=== PATIENT | male | born 1975 | race African-American/Black ===

== ENCOUNTER 2018-12-15 17:36 | Emergency (ER) | payer OTHER ==
[2018-12-15 17:57] VITALS: RESP 18
--- NOTE | 2018-12-15 19:48 | ED ---
General Adult HPI - General Chief complaint: Recheck/Abnormal Lab/Rx Stated complaint: feels weird Time Seen by Provider: 12/15/18 19:12 Source: patient Mode of arrival: wheelchair Limitations: no limitations - History of Present Illness Initial comments: Dictation was produced using Nogacom dictation software. please excuse any grammatical, word or spelling errors. Chief Complaint: 43-year-old male presents with chief complaint of chills and body aches today. History of Present Illness: She is a 43-year-old male presents with chills and body aches. He states his symptoms started today. Patient states that last week he had blood work performed by his PCP and was found to have leukocytosis. He was notified about this recently. Patient states he's been having a mild cough. He does report some slight sore throat. Denies any runny nose. Denies any overt sick contacts. Denies any neck pain. Vital nausea vomiting or diarrhea. Denies any abdominal pain but does have some mild chest pain today sharp and pleuritic in nature. The ROS documented in this emergency department record has been reviewed and confirmed by me. Those systems with pertinent positive or negative responses have been documented in the HPI. All other systems are other negative and/or noncontributory. PHYSICAL EXAM: General Impression: Alert and oriented x3, not in acute distress HEENT: Normocephalic atraumatic, extra-ocular movements intact, pupils equal and reactive to light bilaterally, mucous membranes moist. Cardiovascular: Heart regular rate and rhythm, S1&S2 audible, no murmurs, rubs or gallops Chest: Lungs clear to auscultation bilaterally, no rhonchi, no wheeze, no rales Abdomen: Bowel sounds present, abdomen soft, non-tender, non-distended, no organomegaly Musculoskeletal: Pulses present and equal in all extremities, no peripheral edema Motor: no focal deficits noted Neurological: CN II-XII grossly intact, no focal motor or sensory deficits noted Skin: Intact with no visualized rashes Psych: Normal affect and mood ED course: [age]-year-old male presents with constitutional symptoms. Vital signs upon arrival shows junctional 98.8, rest of vital signs within acceptable limits. Temperature was rechecked found to be 101. Laboratory evaluation obtained. Leukocytosis of 24.8 rest of CBC unremarkable. Metabolic panel is unremarkable. Urinalysis negative. Influenza negative. Strep test is positive. Patient given Tylenol. Patient 1 dose of by mouth azithromycin here. He is given a prescription for azithromycin. Clinical presentation consistent with strep pharyngitis. - Related Data Home Medications Medication Instructions Recorded Confirmed Fluticasone Nasal [place] [Flonase 2 spr EA NOSTRIL DAILY PRN 12/15/18 12/15/18 Nasal [place]] Lisinopril 20 mg PO DAILY 12/15/18 12/15/18 Methocarbamol [Robaxin-750] 750 - 1,500 mg PO BID PRN 12/15/18 12/15/18 Omeprazole 40 mg PO DAILY 12/15/18 12/15/18 Previous Rx's Medication Instructions Recorded Azithromycin [Zithromax] 500 mg PO DAILY 4 Days #4 tab 12/15/18 Allergies Allergy/AdvReac Type Severity Reaction Status Date / Time No Known Allergies Allergy Verified 12/15/18 19:26 Review of Systems ROS Statement: Those systems with pertinent positive or pertinent negative responses have been documented in the HPI. ROS Other: All systems not noted in ROS Statement are negative. Past Medical History Past Medical History: Hyperlipidemia, Hypertension Additional Past Medical History / Comment(s): [place] Palsy History of Any Multi-Drug Resistant Organisms: None Reported Past Surgical History: Appendectomy Past Psychological History: No Psychological Hx Reported Smoking Status: Current every day smoker Past Alcohol Use History: None Reported Past Drug Use History: Marijuana General Exam Limitations: no limitations Course Vital Signs 12/15/18 12/15/18 17:53 19:40 Temperature 98.8 F 101.1 F H Pulse Rate 84 Respiratory 18 Rate Blood Pressure 150/95 O2 Sat by Pulse 100 Oximetry Medical Decision Making - Lab Data Result diagrams: 12/15/18 19:43 12/15/18 19:43 Lab Results 12/15/18 12/15/18 12/15/18 Range/Units 19:43 19:43 19:43 WBC 24.8 H (3.8-10.6) k/uL RBC 5.54 (4.30-5.90) m/uL Hgb 14.3 (13.0-17.5) gm/dL Hct 46.6 (39.0-53.0) % MCV 84.0 (80.0-100.0) fL MCH 25.9 (25.0-35.0) pg MCHC 30.8 L (31.0-37.0) g/dL RDW 15.2 (11.5-15.5) % Plt Count 350 (150-450) k/uL Neutrophils % 84 % Lymphocytes % 9 % Monocytes % 4 % Eosinophils % 2 % Basophils % 1 % Neutrophils # 20.9 H (1.3-7.7) k/uL Lymphocytes # 2.2 (1.0-4.8) k/uL Monocytes # 1.0 (0-1.0) k/uL Eosinophils # 0.5 (0-0.7) k/uL Basophils # 0.1 (0-0.2) k/uL Hypochromasia Slight Sodium 142 (137-145) mmol/L Potassium 4.8 (3.5-5.1) mmol/L Chloride 101 (98-107) mmol/L Carbon Dioxide 32 H (22-30) mmol/L Anion Gap 9 mmol/L BUN 12 (9-20) mg/dL Creatinine 0.83 (0.66-1.25) mg/dL Est GFR (CKD-EPI)AfAm >90 (>60 ml/min/1.73 sqM) Est GFR (CKD-EPI)NonAf >90 (>60 ml/min/1.73 sqM) Glucose 105 H (74-99) mg/dL Calcium 10.6 H (8.4-10.2) mg/dL Urine Color Urine Appearance (Clear) Urine pH (5.0-8.0) Ur Specific Adams (1.001-1.035) Urine Protein (Negative) Urine Glucose (UA) (Negative) Urine Ketones (Negative) Urine Blood (Negative) Urine Nitrite (Negative) Urine Bilirubin (Negative) Urine Urobilinogen (<2.0) mg/dL Ur Leukocyte Esterase (Negative) Urine RBC (0-5) /hpf Urine WBC (0-5) /hpf Urine Mucus (None) /hpf Influenza Type A RNA Not Detected (Not Detectd) Influenza Type B (PCR) Not Detected (Not Detectd) Group A Strep Rapid (Negative) 12/15/18 12/15/18 Range/Units 19:43 21:00 WBC (3.8-10.6) k/uL RBC (4.30-5.90) m/uL Hgb (13.0-17.5) gm/dL Hct (39.0-53.0) % MCV (80.0-100.0) fL MCH (25.0-35.0) pg MCHC (31.0-37.0) g/dL RDW (11.5-15.5) % Plt Count (150-450) k/uL Neutrophils % % Lymphocytes % % Monocytes % % Eosinophils % % Basophils % % Neutrophils # (1.3-7.7) k/uL Lymphocytes # (1.0-4.8) k/uL Monocytes # (0-1.0) k/uL Eosinophils # (0-0.7) k/uL Basophils # (0-0.2) k/uL Hypochromasia Sodium (137-145) mmol/L Potassium (3.5-5.1) mmol/L Chloride (98-107) mmol/L Carbon Dioxide (22-30) mmol/L Anion Gap mmol/L BUN (9-20) mg/dL Creatinine (0.66-1.25) mg/dL Est GFR (CKD-EPI)AfAm (>60 ml/min/1.73 sqM) Est GFR (CKD-EPI)NonAf (>60 ml/min/1.73 sqM) Glucose (74-99) mg/dL Calcium (8.4-10.2) mg/dL Urine Color Yellow Urine Appearance Clear (Clear) Urine pH 5.0 (5.0-8.0) Ur Specific Adams 1.017 (1.001-1.035) Urine Protein Negative (Negative) Urine Glucose (UA) Negative (Negative) Urine Ketones Negative (Negative) Urine Blood Trace H (Negative) Urine Nitrite Negative (Negative) Urine Bilirubin Negative (Negative) Urine Urobilinogen <2.0 (<2.0) mg/dL Ur Leukocyte Esterase Negative (Negative) Urine RBC <1 (0-5) /hpf Urine WBC <1 (0-5) /hpf Urine Mucus Rare H (None) /hpf Influenza Type A RNA (Not Detectd) Influenza Type B (PCR) (Not Detectd) Group A Strep Rapid Positive A (Negative) Disposition Clinical Impression: Strep pharyngitis Disposition: HOME SELF-CARE Condition: Good Prescriptions: Azithromycin [Zithromax] 500 mg PO DAILY 4 Days #4 tab Is patient prescribed a controlled substance at d/c from ED?: No Referrals: Vanessa Hoyos DO [Primary Care Provider] - 1-2 days Time of Disposition: 21:42
[2018-12-15 20:03] LABS: Basophils # (A) 0.1 k/uL (0-0.2); Basophils % (A) 1 %; Eosinophils # (A) 0.5 k/uL (0-0.7); Eosinophils % (A) 2 %; HCT 46.6 % (39.0-53.0); HGB 14.3 gm/dL (13.0-17.5); Hypochromasia Slight; Lymphocytes # (A) 2.2 k/uL (1.0-4.8); Lymphocytes % (A) 9 %; MCH 25.9 pg (25.0-35.0); MCHC 30.8 g/dL (31.0-37.0); Mean Platelet Volume 7.2; Monocytes % (A) 4 %; Neutrophils # (A) 20.9 k/uL (1.3-7.7); Neutrophils % (A) 84 %; Platelet Count 350 k/uL (150-450); RBC 5.54 m/uL (4.30-5.90); RDW 15.2 % (11.5-15.5); WBC 24.8 k/uL (3.8-10.6)
[2018-12-15 20:17] LABS: Anion Gap 9 mmol/L; Blood Urea Nitrogen 12 mg/dL (9-20); Calcium 10.6 mg/dL (8.4-10.2); Carbon Dioxide 32 mmol/L (22-30); Chloride 101 mmol/L (98-107); Glucose 105 mg/dL (74-99); Potassium 4.8 mmol/L (3.5-5.1); Sodium 142 mmol/L (137-145)
[2018-12-15 21:13] LABS: Appearance,Urine Clear (Clear); Bilirubin,Urine Negative (Negative); Blood,Urine Trace (Negative); Color,Urine Yellow; Glucose,Urine (UA) Negative (Negative); Ketones,Urine Negative (Negative); Leukocyte Esterase,Urine Negative (Negative); Mucus,Urine Rare /hpf; Nitrite,Urine Negative (Negative); Protein,Urine Negative (Negative); RBC,Urine <1 /hpf (0-5); Specific Gravity,Urine 1.017 (1.001-1.035); Urobilinogen,Urine <2.0 mg/dL (<2.0); WBC,Urine <1 /hpf (0-5)
[2018-12-15] MEDS ORDERED: ACETAMINOPHEN TAB 325 MG TAB PO STA (21:37)
[2018-12-15] MEDS ORDERED: AZITHROMYCIN 500 MG TAB PO STA (21:41)
[2018-12-15 22:12] VITALS: BP 133/80; PULSE 111; TEMP 101.7
[2018-12-15] MEDS ORDERED: PENICILLIN G BENZATHINE 1,200,000 UNIT/2 ML SYRINGE IM ONE (22:15)
== END 2018-12-15 22:21 | disposition home or self-care (01) ==
LOC: EC 17:36
DX: J02.0 Streptococcal pharyngitis (principal); I10 Essential (primary) hypertension; F17.200 Nicotine dependence, unspecified, uncomplicated; Z79.899 Other long term (current) drug therapy
CPT/HCPCS: 36415; 80048; 85025; 81001; 87086; 87430; 87502; 99283; 96372; J0561

== ENCOUNTER → 2019-01-06 | Outpatient (CLI) | payer OTHER ==
[2019-01-06 15:36] LABS: Prothrombin Time 10.8 sec (9.0-12.0)
== END | disposition home or self-care (01) ==
LOC: LABPAT 15:04
PROVIDERS: ATTEND Orthopaedic Surgery
DX: Z01.812 Encounter for preprocedural laboratory examination (principal)
CPT/HCPCS: 36415; 85610; 85730; 87070

== ENCOUNTER 2019-01-10 07:17 | Inpatient (IN) | payer OTHER ==
[~2019-01-10 07:17] MED LIST: ACETAMINOPHEN TAB 500 MG TAB PO ONE; DEXAMETHASONE SOD PHOSPHATE 10 MG/ML 1 ML VIAL IV ONE; HYDROmorphone 0.5 MG/0.5 ML SYRINGE IVP PRN; MELOXICAM 7.5 MG TAB PO ONE; MIDAZOLAM 2 MG/2 ML VIAL IV PRN; ONDANSETRON 4 MG/2 ML VIAL IVP ONE; ROPIVACAINE 246.25 MG, EPINEPHrine 0.5 MG, KETOROLAC 30 MG, cloNIDine HCL/PF 80 MCG, WA... MISCELLANE ONE; SCOPOLAMINE 1.5MG/72HR PATCH TRANSDERM ONE; TRANEXAMIC ACID 1,000 MG in SODIUM CHLORIDE 0.9% 100 ML IVPB ONE; ceFAZolin 3 GM in SODIUM CHLORIDE 0.9% 100 ML IVPB ONE
[2019-01-10] MEDS: LACTATED RINGERS 1,000 ML IV SCH (07:37)
[2019-01-10] MEDS ORDERED: ceFAZolin 3,000 MG in SODIUM CHLORIDE 0.9% IRRIGATIO 3,000 ML IRRIGATION ONE (08:41)
[2019-01-10] MEDS ORDERED: LACTATED RINGERS 1,000 ML IV ONE (09:25)
[2019-01-10] MEDS ORDERED: ONDANSETRON 4 MG/2 ML VIAL IVP PRN (10:07)
[2019-01-10] MEDS ORDERED: DIAZEPAM 5 MG TAB PO PRN (10:07)
[2019-01-10] MEDS ORDERED: MAGNESIUM HYDROXIDE 2,400 MG/10 ML CUP PO PRN (10:07)
[2019-01-10] MEDS ORDERED: BISACODYL 10 MG SUPP RECTAL PRN (10:07)
[2019-01-10] MEDS ORDERED: HYDROmorphone 0.5 MG/0.5 ML SYRINGE IVP PRN ×2 (10:07)
[2019-01-10] MEDS ORDERED: NA PHOS,M-B/NA PHOS,DI-BA 133 ML ENEMA RECTAL PRN (10:07)
[2019-01-10] MEDS ORDERED: HYDROcodone/APAP 5-325MG 1 EACH TAB PO PRN (10:07)
[2019-01-10] MEDS ORDERED: hydrOXYzine PAMOATE 25 MG CAP PO PRN (10:07)
[2019-01-10] MEDS ORDERED: NALOXONE 0.4 MG/ML 1 ML VIAL IV PRN (10:07)
--- NOTE | 2019-01-10 10:24 | P.OP ---
Date of Procedure: 01/10/19 Preoperative Diagnosis: Severe osteoarthritis left knee Postoperative Diagnosis: Severe osteoarthritis left knee Procedure(s) Performed: Left total knee arthroplasty Implants: [employer] Journey II CR Oxinium cruciate retaining femoral component size 8, left [employer] Journey left nonporous tibial baseplate size 7 [employer] Journey II, XLPE Deep Dished articular insert, size 12 mm, Size 7-8 left [employer] Journey BCS resurfacing oval patellar component, 35 mm All components were cemented using Palacos R bone cement.. The articulation is Oxinium on polyethylene. Anesthesia: spinal Surgeon: Walker Ly Cutter V Groove #1: Tereza Choi Estimated Blood Loss (ml): 25 Pathology: other (Bone and cartilage) Condition: stable Disposition: PACU Indications for Procedure: After failure of conservative treatment we discussed the surgical and nonsurgical treatment options at length. Patient wishes to proceed with a total knee arthroplasty. Complications specific to this procedure were discussed at length, including but not limited to infection, bleeding, stiffness, and nerve injury. Patient is aware of all these complications and informed consent was obtained Operative Findings: The operative findings are consistent with severe osteoarthritis of the left knee Description of Procedure: Patient was seen in the preoperative area consent was reviewed and operative site was marked with a skin marker. An adductor canal pain catheter was placed by anesthesia in the preoperative area. Patient was then brought to the operating room and given preoperative antibiotics intravenously. A spinal anesthetic was administered by the anesthesia department. A tourniquet was placed on the upper thigh and the lower extremity was prepped and draped in usual sterile fashion. A gram of transexamic acid was given. A universal timeout was then performed which confirmed the patient's name, surgical site, ALLERGIES, and consent. The lower extremity was then exsanguinated and tourniquet was inflated to 250 mmHg. A standard and anterior midline approach to the knee was performed. The skin and subcutaneous tissue was dissected down to the patellar tendon. A medial parapatellar arthrotomy was then performed. The knee was then extended, the patellar was everted, and the knee was again flexed. Anterior horns of both menisci were excised, and a release was performed to the posterior medial aspect of the knee. On gross visual inspection, there was complete loss of articular cartilage in the medial and patellofemoral joint spaces. There was also significant cartilage damage in the lateral compartment. There were multiple periarticular osteophytes which were then removed with a Ronguer. The femoral canal was then opened with the appropriate drill, and the intramedullary femoral cutting guide was then placed and set for 5 of valgus. The distal femoral cutting block was then pinned in place, and the distal femur was then cut. The cutting block was then removed and the cut was checked for flatness. Next, the sizing guide was then placed and set for 3 external rotation based off of the epicondylar axis and Whitesides line. After the femur was sized, the appropriate 4-in-1 cutting block was then pinned in place. The anterior condyles were cut without notching. The posterior and chamfer cuts were performed while protecting the collateral ligaments. The cutting block was then removed, and the femoral canal was plugged with autologous bone. Attention was then directed to the tibia. The remaining ACL was removed with a Ronguer, and the tibia was then gently subluxed forward with a large bent knee retractor. Any remaining menisci was excised. The posterior lateral corner was cauterized in order to cauterize the lateral geniculate artery. The extra medullary tibial cutting guide was then placed, set for the appropriate rotation, slope, and depth of resection. The proximal tibia cutting guide was then pinned in place. Proximal tibia was then cut and sized. Next trials were then placed with the appropriate-sized insert. The knee was able to fully extend and flex to 130 and was stable throughout all range of motion. The knee was then extended, patella everted. Patella was then measured, and then using an osteotomy guide, the patella was cut at the appropriate level. The patella was then measured and drilled and the patella trial was then placed. The knee was then taken through range of motion with the patella trial and the patella tracked normally. The knee was then extended patella trial was then removed and the patella was everted. Knee was then flexed and lug holes were drilled through the femoral trial and the femoral trial was then removed. The tibial was then exposed, and the tibial broach guide was then pinned in place after it was set for the appropriate rotation to allow for the most coverage without overhang. The tibia was then reamed and broached. The cut surfaces of bone were then irrigated with pulsatile lavage. The posterior structures were injected with the ropivacaine solution. The knee was also irrigated with Irrisept solution. The components were then opened, the cement was mixed, and the components were then cemented in place. The cement was allowed to harden with the knee in full extension. While the cement was hardening, the remaining soft tissues were then injected with a ropivacaine solution, which consisted of 246.25 mg of ropivacaine, 0.5 mg of epinephrine, 30 mg of Toradol, 80 g of clonidine, and 48.45 mL of sterile water, for a total of 100 mL of fluid injected. After the cemented hardened. The tourniquet was released, and hemostasis was obtained. A second gram of transexamic acid was given. The knee was again irrigated. The knee was again taken through range of motion and found to be stable throughout all range of motion of 0-130, and the patella tracked normally. The fascia was then closed with #2 strata fix suture. The subcutaneous tissue was closed with 3-0 Vicryl and 3-0 strata fix. Dermabond glue was used for the skin and placed with the knee in flexion. The patient was placed in a sterile silver dressing. Patient was then transferred to recovery room in stable condition. The executive personal assistant AURELIA Upton was required due the complexity surgery and the need for a skilled surgical assist. She assisted in positioning, draping, retraction, and closure of the wound.
[2019-01-10] MEDS ORDERED: ROPIVACAINE 1,100 MG, SODIUM CHLORIDE 0.9% 500 ML 330 ML MISCELLANE PRN ×4 (10:40→11:03)
--- NOTE | 2019-01-10 11:10 | XR ---
EXAMINATION TYPE: XR knee limited LT DATE OF EXAM: 01/10/2019 CLINICAL HISTORY: Left knee pain and arthritis status post total knee replacement. TECHNIQUE: Portable AP and crosstable lateral views of the left knee are obtained immediately postop eratively. COMPARISON: None FINDINGS: Metallic hardware from total left knee arthroplasty is seen and appears satisfactory in al ignment and position. There is evidence of recent surgery with diffuse subcutaneous gas and soft tis zion swelling noted. IMPRESSION: METALLIC HARDWARE FROM TOTAL LEFT KNEE ARTHROPLASTY IS SATISFACTORY IN ALIGNMENT.
--- NOTE | 2019-01-10 11:12 | P.ANPRN ---
Procedure Note - Anesthesia - Nerve Block Performed Left Adductor Canal Infusion Time Out Performed: Yes (07:53) Date of Procedure: 01/10/19 Procedure Start Time: 07:54 Procedure Stop Time: 08:11 Location of Patient Procedure: PACU Indication: Acute Post-Operative Pain, Requested by physician (Dr Walker Ly) Sedation Type: Sedate with meaningful contact maintained Preparation: Sterile Prep, Sterile Dressing Position: Supine Catheter Depth at Skin (cm): 3 Catheter: Indwelling Needle Types: Pajunk Needle Gauge: 18 (20cc), 21 Technique: Ultrasound Injectate: 0.5% Ropivacaine (see comment for volume) (20cc)
[2019-01-10 14:24] VITALS: BMI 38.2
--- NOTE | 2019-01-10 15:16 | P.CONS ---
History of Present Illness - Reason for Consult Consult date: 01/10/19 Medical management Requesting physician: Walker Ly - Chief Complaint Status post left total knee arthroplasty - History of Present Illness This is a 43-year-old male, patient of [facility]. He has a known past medical history of hypertension and nicotine dependence. Also history of osteoarthritis of the left knee. He underwent a left total knee arthroplasty with Dr. Ly today. No complications reported estimated blood loss 25 mL. Has been consulted for medical management. Patient is complaining of some pain in the left knee. Nurse has been notified and pain medication will be given. Patient denies any fever, chills, sweats, chest pain or shortness breath, nausea or vomiting, bowel movement changes or urinary symptoms. Patient was bradycardic after surgery with a heart rate 49. Heart rate has improved since then is now up to 61. We'll continue to monitor. Bradycardia likely related to the anesthesia and pain medications. Review of Systems Please refer to HPI otherwise unremarkable Past Medical History Past Medical History: Hyperlipidemia, Hypertension Additional Past Medical History / Comment(s): [place] Palsy History of Any Multi-Drug Resistant Organisms: None Reported Past Surgical History: Appendectomy Past Anesthesia/Blood Transfusion Reactions: No Reported Reaction Smoking Status: Current every day smoker - Past Family History Mother Family Medical History: Cancer Medications and Allergies Home Medications Medication Instructions Recorded Confirmed Type Lisinopril 20 mg PO DAILY 12/15/18 01/10/19 History Allergies Allergy/AdvReac Type Severity Reaction Status Date / Time No Known Allergies Allergy Verified 01/10/19 14:46 Physical Exam Vitals: Vital Signs Temp Pulse Pulse Resp BP BP Pulse Ox 01/10/19 13:30 61 18 114/61 100 01/10/19 13:20 49 L 18 108/57 95 01/10/19 13:04 49 L 17 107/67 99 01/10/19 12:48 50 L 17 112/57 5 L 01/10/19 12:33 52 L 17 119/61 100 01/10/19 12:25 53 L 18 121/59 100 01/10/19 12:10 51 L 18 113/59 100 01/10/19 11:55 54 L 18 126/65 100 01/10/19 11:40 55 L 18 117/68 98 01/10/19 11:25 51 L 18 110/76 96 01/10/19 11:09 67 18 121/67 100 01/10/19 10:54 60 18 138/76 100 01/10/19 10:39 96.9 F L 65 18 131/71 97 01/10/19 08:18 18 125/60 100 01/10/19 08:15 96 01/10/19 08:12 65 18 128/71 92 L 01/10/19 07:28 97.0 F L 84 18 133/77 97 Intake and Output 01/10/19 01/10/19 01/10/19 06:59 14:59 22:59 Intake Total 1801 Output Total 675 Balance 1126 Intake: IV 1801 Output: Urine 650 Estimated Blood Loss 25 Head normocephalic Neck supple Lungs clear to auscultation bilaterally no wheezing or crackles Heart regular rate and rhythm S1-S2, no rub or gallop Abdomen is soft nontender nondistended positive bowel sounds no hepatosplenomegaly Extremities no edema. Left knee is Samy wrapped. +2 dorsalis pedis pulse. Has pain pump in place Neuro alert and orientated to 3 Assessment and Plan Assessment: 1. Severe osteoarthritis of the left knee status post Left total knee arthroplasty: Continue aspirin 325 mg twice a day for DVT prophylaxis. Continue pain control per orthopedic protocol 2. Essential hypertension: Blood pressures are stable. Last blood pressure 114/61. We'll place parameters around the lisinopril to hold for systolic blood pressure less than 120 3. Nicotine dependence: Discussed smoking cessation for greater than 3 minutes. We'll add nicotine patch 4. Bradycardia with a heart rate of 49 now improved to 61. Likely related to anesthesia and pain medications. We'll continue to monitor. Check CBC and CMP in a.m. Add GI prophylaxis Pepcid Thank you for this consultation. We will continue to follow along during patient's hospitalization Time with Patient: Greater than 30 (Greater than 50% of the total time spent in counseling and coordination of care.I performed an examination of the patient and discussed their management with the physician Registered Mail Clerk. I have reviewed the Physician Registered Mail Clerk's notes and agree with the documented findings and plan of care)
[2019-01-10] MEDS: HYDROmorphone 1 MG/ML 1 ML SYRINGE IVP PRN ×2 (16:36→19:35)
[2019-01-10] MEDS: ceFAZolin 3 GM in SODIUM CHLORIDE 0.9% 100 ML IVPB SCH ×2 (17:29→23:39)
[2019-01-10] MEDS: SODIUM CHLORIDE 0.9% 1,000 ML IV SCH (19:49)
[2019-01-10] MEDS: SENNOSIDES-DOCUSATE SODIUM 1 EACH TAB PO SCH (20:58)
[2019-01-10] MEDS: ASPIRIN 325 MG TAB PO SCH (20:58)
[2019-01-10] MEDS: HYDROcodone/APAP 5-325MG 1 EACH TAB PO PRN (23:39)
[2019-01-11] MEDS: SODIUM CHLORIDE 0.9% 1,000 ML IV SCH ×2 (01:15→14:12)
[2019-01-11] MEDS: HYDROcodone/APAP 5-325MG 1 EACH TAB PO PRN ×3 (04:43→15:03)
[2019-01-11] MEDS: LACTATED RINGERS 1,000 ML IV SCH (05:12)
--- NOTE | 2019-01-11 06:41 | P.PN ---
Progress Note - Text Progress Note Date: 01/11/19 Postoperative day # 1 status post left total knee arthroplasty, and adductor canal catheter placed for postoperative analgesia, currently at ropivacaine 0.2% 8 mL per hour and continuous infusion, patient using oral pain medication for breakthrough pain. Assessment and plan= Acute postoperative pain, adductor canal catheter for pain control, we'll continue the current management.
[2019-01-11 08:26] LABS: Basophils % (A) 0 %; Eosinophils # (A) 0.1 k/uL (0-0.7); Eosinophils % (A) 0 %; HCT 34.4 % (39.0-53.0); Hypochromasia Slight; Lymphocytes # (A) 3.4 k/uL (1.0-4.8); Lymphocytes % (A) 23 %; MCH 26.2 pg (25.0-35.0); MCHC 31.7 g/dL (31.0-37.0); MCV 82.7 fL (80.0-100.0); Mean Platelet Volume 7.2; Monocytes # (A) 0.9 k/uL (0-1.0); Monocytes % (A) 6 %; Neutrophils # (A) 10.2 k/uL (1.3-7.7); Neutrophils % (A) 69 %; Platelet Count 276 k/uL (150-450); RBC 4.16 m/uL (4.30-5.90); RDW 15.4 % (11.5-15.5); WBC 14.8 k/uL (3.8-10.6)
[2019-01-11 08:35] LABS: HGB 10.9 gm/dL (13.0-17.5)
[2019-01-11] MEDS: MELOXICAM 7.5 MG TAB PO SCH (08:35)
[2019-01-11] MEDS: LISINOPRIL 20 MG TAB PO SCH (08:36)
[2019-01-11] MEDS: ASPIRIN 325 MG TAB PO SCH ×2 (08:36→20:27)
[2019-01-11] MEDS: FAMOTIDINE 20 MG TAB PO SCH (08:36)
[2019-01-11] MEDS: NICOTINE 14MG/24HR PATCH TRANSDERM SCH (08:36)
--- NOTE | 2019-01-11 08:52 | P.DS ---
Providers Date of admission: 01/10/19 07:17 Expected date of discharge: 01/11/19 Attending physician: Walker Ly Consults: 01/10/19 10:07 Consult Physician Routine Consulting Provider: Elvis Nuñez Consult Reason/Comments: medical management Do you want consulting provider notified?: Yes Primary care physician: Vanessa Hoyos - Discharge Diagnosis(es) (1) Osteoarthritis of left knee Current Visit: Yes Status: Acute (2) S/P total knee arthroplasty Current Visit: Yes Status: Acute Hospital Course: This is a 43-year-old male with known history of degenerative arthritis of the left knee. The patient presents for evaluation. After discussion and consideration patient elects to proceed with total knee arthroplasty. The patient is seen preoperatively by Dr. Ly and medically cleared for surgery by their primary care physician. Patient is admitted to [facility] on 01/10/2019 for total knee arthroplasty. The procedures performed without complication or sequelae. The patient is doing well postoperatively. Labs and vital signs are stable on day of discharge. On day of discharge patient's knee incision is healing well. There is minimal erythema. There is no drainage noted at this time. There is minimal soft tissue swelling to the knee. Patient has full foot and ankle motion without difficulty or pain. Calf is soft and nontender to palpation. Neurovascular status to the left lower extremity is intact. Patient is discharged home in good condition. Opioid start talking form is reviewed and signed at patient bedside. Please see med rec for accurate list of home medications. Plan - Discharge Summary Discharge Rx Participant: Yes New Discharge Prescriptions: New Aspirin 325 mg PO BID #60 tab HYDROcodone/APAP 5-325MG [[place] 5-325] 1 - 2 tab PO Q6HR PRN #56 tab PRN Reason: Pain Sennosides [Senokot] 1 tab PO BID #60 tablet No Action Lisinopril 20 mg PO DAILY Discharge Medication List Lisinopril 20 mg PO DAILY 12/15/18 [History] Aspirin 325 mg PO BID #60 tab 01/11/19 [Rx] HYDROcodone/APAP 5-325MG [[place] 5-325] 1 - 2 tab PO Q6HR PRN #56 tab 01/11/19 [Rx] Sennosides [Senokot] 1 tab PO BID #60 tablet 01/11/19 [Rx] Follow up Appointment(s)/Referral(s): Walker Ly DO [Doctor of Osteopathic Medicine] - 2 Weeks Ambulatory/Diagnostic Orders: Continuous Passive Motion (CPM) Machine [DME.AMB1] Time Frame: 3 Weeks, Location: None Selected Activity/Diet/Wound Care/Special Instructions: Weightbearing as tolerated with a walker. CPM 5-6h daily. Leave dressing intact. May be removed by home care nurse or by patient in 10 days. May shower with dressing on. Please follow up with [facility] and call with any questions or concerns, . Discharge Disposition: HOME WITH HOME HEALTH SERVICES
[2019-01-11 12:21] LABS: ALT 37 U/L (21-72); AST 30 U/L (17-59); African American GFR (CKD) >90 (>60 ml/min/1.73 sqM); Albumin 3.6 g/dL (3.5-5.0); Alkaline Phosphatase 62 U/L (38-126); Anion Gap 6 mmol/L; Blood Urea Nitrogen 9 mg/dL (9-20); Calcium 8.8 mg/dL (8.4-10.2); Carbon Dioxide 31 mmol/L (22-30); Chloride 105 mmol/L (98-107); Glucose 109 mg/dL (74-99); Potassium 4.3 mmol/L (3.5-5.1); Sodium 142 mmol/L (137-145); Total Bilirubin 0.6 mg/dL (0.2-1.3); Total Protein 6.2 g/dL (6.3-8.2)
--- NOTE | 2019-01-11 15:25 | P.PN ---
Subjective Progress Note Date: 01/11/19 This is a 43-year-old male, patient of [facility]. He has a known past medical history of hypertension and nicotine dependence. Also history of osteoarthritis of the left knee. He underwent a left total knee arthroplasty with Dr. Ly today. No complications reported estimated blood loss 25 mL. Has been consulted for medical management. Patient is complaining of some pain in the left knee. Nurse has been notified and pain medication will be given. Patient denies any fever, chills, sweats, chest pain or shortness breath, nausea or vomiting, bowel movement changes or urinary symptoms. Patient was bradycardic after surgery with a heart rate 49. Heart rate has improved since then is now up to 61. We'll continue to monitor. Bradycardia likely related to the anesthesia and pain medications. On 01/11/2019 patient is alert and oriented 3. Patient having increased pain to left knee. Patient's heart rate has improved. Patient requiring additional 24 hours due to limited mobility with physical therapy. Patient also having elevated white blood cell count 14.8. Patient denies any acute symptoms. Patient denies nausea vomiting or diarrhea. Patient denies any urinary burning or frequency. Urinary analysis has been ordered Objective - Vital Signs Vital signs: Vital Signs Temp 98.9 F 01/11/19 14:00 Pulse 85 01/11/19 14:00 Resp 16 01/11/19 03:21 BP 128/75 01/11/19 14:00 Pulse Ox 97 01/11/19 14:00 Intake & Output 01/10/19 01/11/19 01/11/19 18:59 06:59 18:59 Intake Total 1801 Output Total 675 600 Balance 1126 -600 Intake: IV 1801 Output: Urine 650 600 Estimated Blood Loss 25 Other: Voiding Method Urinal Urinal Urinal # Voids 1 3 - Exam Head normocephalic Neck supple Lungs clear to auscultation bilaterally no wheezing or crackles Heart regular rate and rhythm S1-S2, no rub or gallop Abdomen is soft nontender nondistended positive bowel sounds no hepatosplenomegaly Extremities no edema. Left knee dressing is clean dry and intact Neuro alert and orientated to 3 - Labs CBC & Chem 7: 01/11/19 07:39 01/11/19 07:39 Labs: Abnormal Lab Results - Last 24 Hours (Table) 01/11/19 01/11/19 Range/Units 07:39 07:39 WBC 14.8 H (3.8-10.6) k/uL RBC 4.16 L (4.30-5.90) m/uL Hgb 10.9 L D (13.0-17.5) gm/dL Hct 34.4 L (39.0-53.0) % Neutrophils # 10.2 H (1.3-7.7) k/uL Carbon Dioxide 31 H (22-30) mmol/L Glucose 109 H (74-99) mg/dL Total Protein 6.2 L (6.3-8.2) g/dL Assessment and Plan Assessment: 1. Severe osteoarthritis of the left knee status post Left total knee arthroplasty: Continue aspirin 325 mg twice a day for DVT prophylaxis. Continue pain control per orthopedic protocol 2. Essential hypertension: Blood pressures are stable. Last blood pressure 114/61. We'll place parameters around the lisinopril to hold for systolic blood pressure less than 120 3. Nicotine dependence: Discussed smoking cessation for greater than 3 minutes. We'll add nicotine patch 4. Bradycardia with a heart rate of 49 now improved to 61. Likely related to anesthesia and pain medications. We'll continue to monitor. Resolved 5. Leukocytosis. White blood cell elevated at 14.8. Urinary analysis has been ordered repeat CBC in a.m. thank you for this consultation we will continue to follow patient closely t hroughout stay I performed an examination of the patient and discussed their management with the Nurse Practitioner. I have reviewed the Nurse Practitioner's notes and agree with the documented findings and plan of care
[2019-01-11 15:26] LABS: Appearance,Urine Clear (Clear); Bilirubin,Urine Negative (Negative); Blood,Urine Negative (Negative); Color,Urine Light Yellow; Glucose,Urine (UA) Negative (Negative); Ketones,Urine Negative (Negative); Leukocyte Esterase,Urine Negative (Negative); Nitrite,Urine Negative (Negative); PH, Urine 6.5 (5.0-8.0); Protein,Urine Negative (Negative); Specific Gravity,Urine 1.011 (1.001-1.035); Urobilinogen,Urine <2.0 mg/dL (<2.0)
[2019-01-11] MEDS: HYDROmorphone 1 MG/ML 1 ML SYRINGE IVP PRN (20:23)
[2019-01-11] MEDS: SENNOSIDES-DOCUSATE SODIUM 1 EACH TAB PO SCH (20:27)
[2019-01-12] MEDS: LACTATED RINGERS 1,000 ML IV SCH (02:05)
[2019-01-12] MEDS: HYDROmorphone 1 MG/ML 1 ML SYRINGE IVP PRN ×2 (02:09→08:13)
[2019-01-12] MEDS: SODIUM CHLORIDE 0.9% 1,000 ML IV SCH (02:13)
[2019-01-12 08:09] VITALS: RESP 16
[2019-01-12] MEDS: LISINOPRIL 20 MG TAB PO SCH (08:13)
[2019-01-12] MEDS: FAMOTIDINE 20 MG TAB PO SCH (08:13)
[2019-01-12] MEDS: ASPIRIN 325 MG TAB PO SCH (08:13)
[2019-01-12] MEDS: MELOXICAM 7.5 MG TAB PO SCH (08:15)
[2019-01-12] MEDS: NICOTINE 14MG/24HR PATCH TRANSDERM SCH (08:18)
[2019-01-12 09:00] LABS: ALT 44 U/L (21-72); AST 35 U/L (17-59); African American GFR (CKD) >90 (>60 ml/min/1.73 sqM); Albumin 3.9 g/dL (3.5-5.0); Alkaline Phosphatase 71 U/L (38-126); Anion Gap 8 mmol/L; Blood Urea Nitrogen 8 mg/dL (9-20); Calcium 9.1 mg/dL (8.4-10.2); Carbon Dioxide 29 mmol/L (22-30); Chloride 102 mmol/L (98-107); Glucose 153 mg/dL (74-99); Potassium 4.1 mmol/L (3.5-5.1); Sodium 139 mmol/L (137-145); Total Bilirubin 0.9 mg/dL (0.2-1.3); Total Protein 6.8 g/dL (6.3-8.2)
[2019-01-12] MEDS ORDERED: HYDROcodone/APAP 7.5-325MG 1 EACH TAB PO PRN ×2 (09:09)
[2019-01-12 10:47] LABS: Basophils # (A) 0.1 k/uL (0-0.2); Basophils % (A) 0 %; Eosinophils # (A) 0.1 k/uL (0-0.7); Eosinophils % (A) 1 %; HCT 35.8 % (39.0-53.0); HGB 11.2 gm/dL (13.0-17.5); Lymphocytes # (A) 2.8 k/uL (1.0-4.8); Lymphocytes % (A) 20 %; MCHC 31.2 g/dL (31.0-37.0); MCV 83.5 fL (80.0-100.0); Mean Platelet Volume 7.3; Monocytes # (A) 1.1 k/uL (0-1.0); Monocytes % (A) 8 %; Neutrophils # (A) 9.6 k/uL (1.3-7.7); Neutrophils % (A) 70 %; Platelet Count 301 k/uL (150-450); RBC 4.29 m/uL (4.30-5.90); RDW 15.4 % (11.5-15.5); WBC 13.8 k/uL (3.8-10.6)
--- NOTE | 2019-01-12 13:08 | P.PN ---
Subjective Progress Note Date: 01/12/19 This is a 43-year-old male, patient of [facility]. He has a known past medical history of hypertension and nicotine dependence. Also history of osteoarthritis of the left knee. He underwent a left total knee arthroplasty with Dr. Ly today. No complications reported estimated blood loss 25 mL. Has been consulted for medical management. Patient is complaining of some pain in the left knee. Nurse has been notified and pain medication will be given. Patient denies any fever, chills, sweats, chest pain or shortness breath, nausea or vomiting, bowel movement changes or urinary symptoms. Patient was bradycardic after surgery with a heart rate 49. Heart rate has improved since then is now up to 61. We'll continue to monitor. Bradycardia likely related to the anesthesia and pain medications. On 01/11/2019 patient is alert and oriented 3. Patient having increased pain to left knee. Patient's heart rate has improved. Patient requiring additional 24 hours due to limited mobility with physical therapy. Patient also having elevated white blood cell count 14.8. Patient denies any acute symptoms. Patient denies nausea vomiting or diarrhea. Patient denies any urinary burning or frequency. Urinary analysis has been ordered 01/12/19 patient is lying in bed comfortably. Still complaining of knee pain however it is controlled with pain medication. He is scheduled for discharge today. White count has decreased from 14.8-13.8. He did have a temp of 99.3 last night and this morning 98.8 patient denies any chest pain or shortness breath, nausea or vomiting, Ramesh changes or urinary symptoms. Denies any chills or sweats. Left knee dressing is clean dry and intact. Urinalysis is negative Objective - Vital Signs Vital signs: Vital Signs Temp 98.8 F 01/12/19 07:42 Pulse 98 01/12/19 08:15 Resp 16 01/12/19 08:15 BP 130/91 01/12/19 07:42 Pulse Ox 97 01/12/19 07:42 Intake & Output 01/11/19 01/12/19 01/12/19 18:59 06:59 18:59 Output Total 600 1500 600 Balance -600 -1500 -600 Output: Urine 600 1500 600 Other: Voiding Method Urinal Urinal # Voids 3 - Exam Head normocephalic Neck supple Lungs clear to auscultation bilaterally no wheezing or crackles Heart regular rate and rhythm S1-S2, no rub or gallop Abdomen is soft nontender nondistended positive bowel sounds no hepato splenomegaly Extremities no edema. Left knee dressing clean dry and intact no evidence of erythema around the dressing. Neuro alert and orientated to 3 - Labs CBC & Chem 7: 01/12/19 08:25 01/12/19 08:25 Labs: Abnormal Lab Results - Last 24 Hours (Table) 01/12/19 01/12/19 Range/Units 08:25 08:25 WBC 13.8 H (3.8-10.6) k/uL RBC 4.29 L (4.30-5.90) m/uL Hgb 11.2 L (13.0-17.5) gm/dL Hct 35.8 L (39.0-53.0) % Neutrophils # 9.6 H (1.3-7.7) k/uL Monocytes # 1.1 H (0-1.0) k/uL BUN 8 L (9-20) mg/dL Glucose 153 H (74-99) mg/dL Assessment and Plan Assessment: 1. Severe osteoarthritis of the left knee status post Left total knee arthroplasty: Continue aspirin 325 mg twice a day for DVT prophylaxis. Continue pain control per orthopedic protocol 2. Essential hypertension: Blood pressures are stable. Last blood pressure 114/61. We'll place parameters around the lisinopril to hold for systolic blood pressure less than 120 3. Nicotine dependence: Discussed smoking cessation for greater than 3 minutes. We'll add nicotine patch 4. Bradycardia with a heart rate of 49 now improved to 61. Likely related to anesthesia and pain medications. Resolved 5. Leukocytosis likely reactive from surgery. Urinalysis is negative. Repeat WBC is down to 13.8 Patient is medically stable for discharge. We'll have him follow up with his PCP in 1 week. Repeat check CBC in 1 week. Patient has been educated to monitor himself for any fevers. To keep an eye on his knee for any significant swelling or redness or drainage. If the symptoms do occur he is to return back to the ER. I performed an examination of the patient and discussed their management with the physician Bone Drier. I have reviewed the Physician Bone Drier's notes and agree with the documented findings and plan of care
[2019-01-12 13:58] VITALS: BP 124/62; PULSE 73; TEMP 98
== END 2019-01-12 16:37 | disposition home health service (06) | DRG 470 ==
LOC: 2ORMAIN 07:17 → 4SSUR 14:46
PROVIDERS: ADMIT Orthopaedic Surgery; ATTEND Orthopaedic Surgery
PROC: 0SRD069 Replacement of Left Knee Joint with Oxidized Zirconium on Polyethylene Synthetic Substitute, Cemented, Open Approach (ICD-10-PCS; principal; 2019-01-10 08:30)
DX: M17.12 Unilateral primary osteoarthritis, left knee (principal); I10 Essential (primary) hypertension; G89.18 Other acute postprocedural pain; D72.829 Elevated white blood cell count, unspecified; R00.1 Bradycardia, unspecified; E78.5 Hyperlipidemia, unspecified; G51.0 Bell's palsy; F17.200 Nicotine dependence, unspecified, uncomplicated; Z71.6 Tobacco abuse counseling; Z79.899 Other long term (current) drug therapy; Z90.49 Acquired absence of other specified parts of digestive tract; Z80.9 Family history of malignant neoplasm, unspecified
CPT/HCPCS: 80053; 81003; 85025; 88300

== ENCOUNTER 2019-01-25 15:37 | Emergency (ER) | payer OTHER ==
[2019-01-25 15:49] VITALS: TEMP 98.2
[2019-01-25 16:48] VITALS: RESP 18
[2019-01-25] MEDS ORDERED: valACYclovir HCL 1,000 MG TABLET PO STA (17:14)
[2019-01-25] MEDS ORDERED: DEXAMETHASONE SOD PHOSPHATE 10 MG/ML 1 ML VIAL IM STA (17:14)
--- NOTE | 2019-01-25 17:14 | ED ---
Neuro HPI - General Chief Complaint: Neuro Symptoms/Deficit Stated Complaint: rt facial numbness Time Seen by Provider: 01/25/19 16:34 Source: patient, RN notes reviewed, old records reviewed Mode of arrival: wheelchair Limitations: no limitations - History of Present Illness Is the patient presenting with stroke symptoms?: Yes Last Known Well Date: 01/24/19 Last Known Well Time: 20:00 -: days(s) Initial Comments: This is a 43-year-old male the ER for evaluation history prediabetes coming in for evaluation of facial weakness and droop. She really. Inability to move right eyebrow. Patient has history of alcohol states this feels the same. No fevers no head trauma no headache. No deficits in arms or legs. Location: right face History of same: Yes Place: home Severity: moderate Quality: weak, tingling Improves With: none Worsens With: none On Anticoagulants: No Context: sudden onset Associated Symptoms: denies other symptoms Treatments Prior to Arrival: none - Related Data Home Medications: Home Medications Medication Instructions Recorded Confirmed Lisinopril 20 mg PO DAILY 12/15/18 01/25/19 Previous Rx's Medication Instructions Recorded Aspirin 325 mg PO BID #60 tab 01/11/19 Sennosides [Senokot] 1 tab PO BID #60 tablet 01/11/19 HYDROcodone/APAP 7.5-325MG [[place] 1 - 2 tab PO Q6H PRN #56 tab 01/12/19 7.5-325] Allergies/Adverse Reactions: Allergies Allergy/AdvReac Type Severity Reaction Status Date / Time No Known Allergies Allergy Verified 01/25/19 16:16 Review of Systems ROS Statement: Those systems with pertinent positive or pertinent negative responses have been documented in the HPI. ROS Other: All systems not noted in ROS Statement are negative. General Exam - General Exam Comments Initial Comments: Patient signs and symptoms of Bee's palsy, unable to raise right eyebrow unable to successfully close right eye, right-sided facial droop, history of Bee's palsy Limitations: no limitations General appearance: alert, in no apparent distress Head exam: Present: atraumatic, normocephalic, normal inspection Eye exam: Present: normal appearance, PERRL, EOMI. Absent: scleral icterus, conjunctival injection, periorbital swelling ENT exam: Present: normal exam, mucous membranes moist Neck exam: Present: normal inspection. Absent: tenderness, meningismus, lymphadenopathy Respiratory exam: Present: normal lung sounds bilaterally. Absent: respiratory distress, wheezes, rales, rhonchi, stridor Cardiovascular Exam: Present: regular rate, normal rhythm, normal heart sounds. Absent: systolic murmur, diastolic murmur, rubs, gallop, clicks GI/Abdominal exam: Present: soft, normal bowel sounds. Absent: distended, tenderness, guarding, rebound, rigid Extremities exam: Present: normal inspection, full ROM, normal capillary refill. Absent: tenderness, pedal edema, joint swelling, calf tenderness Back exam: Present: normal inspection Neurological exam: Present: alert, oriented X3, CN II-XII intact Psychiatric exam: Present: normal affect, normal mood Skin exam: Present: warm, dry, intact, normal color. Absent: rash Stroke MDM - NIH Stroke Scale 1a. Level of Consciousness: (0) alert 1b. LOC Questions: (0) answers correctly 1c. LOC Commands: (0) performs tasks correctly 2. Best Gaze: (0) normal 3. Visual: (0) no visual loss 4. Facial Palsy: (2) partial paralysis 5a. Motor Arm Left: (0) no drift 5b. Motor Arm Right: (0) no drift 6a. Motor Leg Left: (0) no drift 6b. Motor Leg Right: (0) no drift 7. Limb Ataxia: (0) absent 8. Sensory: (0) normal 9. Best Language: (0) no aphasia 10. Dysarthria: (1) mild/moderate dysarthria 11. Extinction/Inattention: (0) no abnormality - Thrombolytic Inclusion/Exclusion Thrombolytic Exclusion Criteria: Symptom Onset > 3 Hours - Medical Decision Making 43 male to ED w si/sx of bells palsy, patient will be treated appropraitely and discharged. Past Medical History Past Medical History: Hyperlipidemia, Hypertension Additional Past Medical History / Comment(s): [place] Palsy History of Any Multi-Drug Resistant Organisms: None Reported Past Surgical History: Appendectomy Past Anesthesia/Blood Transfusion Reactions: No Reported Reaction Past Psychological History: No Psychological Hx Reported Smoking Status: Current every day smoker - Past Family History Mother Family Medical History: Cancer Course Vital Signs 01/25/19 01/25/19 15:47 16:47 Temperature 98.2 F Pulse Rate 75 82 Respiratory 16 18 Rate Blood Pressure 130/88 145/82 O2 Sat by Pulse 99 100 Oximetry - Reevaluation(s) Reevaluation #1: 01/25/19 17:11 medical record reviewed Reevaluation #2: 01/25/19 17:11 patient encouragfed to increase fluid intake secondary to pre diabetes and steroids Disposition Clinical Impression: Bee's palsy Disposition: HOME SELF-CARE Condition: Good Instructions (If sedation given, give patient instructions): Bee Palsy (ED) Is patient prescribed a controlled substance at d/c from ED?: No Referrals: Marivel Lopez MD [Primary Care Provider] - 1-2 days
[2019-01-25 17:41] VITALS: BP 131/78; PULSE 78
== END 2019-01-25 17:40 | disposition home or self-care (01) ==
LOC: EC 15:37
DX: G51.0 Bell's palsy (principal); R73.03 Prediabetes; I10 Essential (primary) hypertension; F17.200 Nicotine dependence, unspecified, uncomplicated; Z90.49 Acquired absence of other specified parts of digestive tract; Z79.899 Other long term (current) drug therapy
CPT/HCPCS: 99284 ×2; 96372 ×2; 93971; J1100

== ENCOUNTER → 2019-07-21 | Outpatient (CLI) | payer OTHER ==
--- NOTE | 2019-07-22 14:36 | MR ---
EXAMINATION TYPE: MR lumbar spine wo con DATE OF EXAM: 07/22/2019 COMPARISON: None HISTORY: Low Back Pain TECHNIQUE: Multiplanar, multisequence images of the lumbar spine were acquired. L1-L2: Normal disc appearance without desiccation. No herniation, protrusion or disc bulging. No ca nal stenosis is present. Foramina are patent bilaterally. L2-L3: Normal disc appearance without desiccation. No herniation, protrusion or disc bulging. No ca nal stenosis is present. Foramina are patent bilaterally. L3-L4: Normal disc appearance without desiccation. No herniation, protrusion or disc bulging. No ca nal stenosis is present. Foramina are patent bilaterally. L4-L5: Normal disc appearance without desiccation. No herniation, protrusion or disc bulging. No ca nal stenosis is present. Foramina are patent bilaterally. L5-S1: Posterior disc herniation present L5-S1 contacting the proximal S1 nerve root on the left grea ter than right, no significant spinal stenosis, circumferential extension of endplate disc complex ca uses some foraminal encroachment bilaterally. Lumbar segments are intact. No paraspinal masses are identified. Conus medullaris has a normal appe arance. Loss of disc height signal present L5-S1 consistent with disc desiccation and degenerative di sc disease. IMPRESSION: Disc herniation L5-S1 as described, correlate for S1 radiculopathy.
== END | disposition home or self-care (01) ==
LOC: RADMRIMAIN 16:28
PROVIDERS: ATTEND Family Medicine
DX: M51.27 Other intervertebral disc displacement, lumbosacral region (principal); M54.16 Radiculopathy, lumbar region
CPT/HCPCS: 72148

== ENCOUNTER 2020-04-13 00:10 | Inpatient (IN) | payer OTHER ==
[2020-04-13] MEDS ORDERED: CLINDAMYCIN 600 MG in DEXTROSE 5% IN WATER 50 ML IVPB STA ×2 (00:40)
[2020-04-13] MEDS ORDERED: SODIUM CHLORIDE 0.9% 500 ML 500 ML IV ONE (00:41)
[2020-04-13 01:05] LABS: Basophils # (A) 0.2 k/uL (0-0.2); Basophils % (A) 1 %; Eosinophils # (A) 0.3 k/uL (0-0.7); Eosinophils % (A) 2 %; HCT 42.7 % (39.0-53.0); HGB 13.4 gm/dL (13.0-17.5); Lymphocytes # (A) 3.6 k/uL (1.0-4.8); Lymphocytes % (A) 24 %; MCH 25.6 pg (25.0-35.0); MCHC 31.5 g/dL (31.0-37.0); MCV 81.5 fL (80.0-100.0); Mean Platelet Volume 7.7; Monocytes # (A) 0.9 k/uL (0-1.0); Monocytes % (A) 6 %; Neutrophils # (A) 9.9 k/uL (1.3-7.7); Neutrophils % (A) 66 %; Platelet Count 368 k/uL (150-450); RBC 5.24 m/uL (4.30-5.90); RDW 15.3 % (11.5-15.5); WBC 15.1 k/uL (3.8-10.6)
[2020-04-13] MEDS: SODIUM CHLORIDE 0.9% 1,000 ML IV SCH ×4 (01:09→23:07)
[2020-04-13] MEDS ORDERED: SODIUM CHLORIDE 0.9% 1,000 ML IV ONE ×2 (01:14→02:14)
[2020-04-13 01:17] LABS: ALT 63 U/L (4-49); AST 67 U/L (17-59); African American GFR (CKD) >90 (>60 ml/min/1.73 sqM); Alkaline Phosphatase 81 U/L (38-126); Anion Gap 11 mmol/L; Blood Urea Nitrogen 17 mg/dL (9-20); Calcium 9.7 mg/dL (8.4-10.2); Carbon Dioxide 29 mmol/L (22-30); Chloride 90 mmol/L (98-107); Glucose 134 mg/dL (74-99); Non-African American GFR(CKD) 81 (>60 ml/min/1.73 sqM); Sodium 130 mmol/L (137-145); Total Bilirubin 0.7 mg/dL (0.2-1.3); Total Protein 8.1 g/dL (6.3-8.2)
[2020-04-13] MEDS ORDERED: NALOXONE 0.4 MG/ML 1 ML VIAL IV PRN (01:21)
--- NOTE | 2020-04-13 01:24 | ED ---
Extremity Problem HPI - General Chief complaint: Extremity Problem,Nontraumatic Stated complaint: back pain Time Seen by Provider: 04/13/20 00:28 Source: patient, family Mode of arrival: ambulatory Limitations: no limitations - History of Present Illness Initial comments: 44-year-old male presented for right leg swelling and pain. Patient states that he has had increasing right leg redness swelling and pain he states he was diagnosed with cellulitis has been treated with multiple antibiotics over the course of the month he states he recently discontinued Bactrim. Patient states he's been evaluated twice in the [facility] and had his heart evaluated with no findings suggestive of heart failure per patient as well as evaluation for DVT> Patient denies fevers, general malaise. Denies vomiting, diarrhea. Pt also endorses low back pain in which he states is chronic and has been evaluated outpatient. Patient has no additional complaints. Upon arrival he appears well nontoxic in no acute distress. - Related Data Home Medications Medication Instructions Recorded Confirmed lisinopriL 20 mg PO DAILY 12/15/18 01/25/19 Previous Rx's Medication Instructions Recorded Aspirin 325 mg PO BID #60 tab 01/11/19 Sennosides [Senokot] 1 tab PO BID #60 tablet 01/11/19 HYDROcodone/APAP 7.5-325MG [[place] 1 - 2 tab PO Q6H PRN #56 tab 01/12/19 7.5-325] predniSONE [Deltasone] 20 mg PO DAILY #27 tab 01/25/19 valACYclovir HCL [Valtrex] 500 mg PO Q8HR #21 tab 01/25/19 Allergies Allergy/AdvReac Type Severity Reaction Status Date / Time No Known Allergies Allergy Verified 04/13/20 00:20 Review of Systems ROS Statement: Those systems with pertinent positive or pertinent negative responses have been documented in the HPI. ROS Other: All systems not noted in ROS Statement are negative. Past Medical History Past Medical History: Hyperlipidemia, Hypertension Additional Past Medical History / Comment(s): [place] Palsy, back pain History of Any Multi-Drug Resistant Organisms: None Reported Past Surgical History: Appendectomy Past Anesthesia/Blood Transfusion Reactions: No Reported Reaction Past Psychological History: No Psychological Hx Reported Smoking Status: Current every day smoker Past Alcohol Use History: Occasional Past Drug Use History: Marijuana - Past Family History Mother Family Medical History: Cancer General Exam - General Exam Comments Initial Comments: General: The patient is awake and alert, in no distress Eye: Pupils are equal, round and reactive to light, extra-ocular movements are intact. No nystagmus. There is normal conjunctiva bilaterally. No signs of icterus. Ears, nose, mouth and throat: There are moist mucous membranes and no oral lesions. Neck: The neck is supple, there is no tenderness or JVD. Cardiovascular: There is a regular rate and rhythm. No murmur, rub or gallop is appreciated. Respiratory: Lungs are clear to auscultation, respirations are non-labored, breath sounds are equal. No wheezes, stridor, rales, or rhonchi. Gastrointestinal: Soft, non-distended, non-tender abdomen without masses or organomegaly noted. There is no rebound or guarding present. Musculoskeletal: Normal ROM, no tenderness. Strength 5/5. Sensation intact. Pulses equal bilaterally 2+. Neurological: A&O x 3. CN II-XII intact grossly, There are no obvious motor or sensory deficits. Coordination appears grossly intact. Speech is normal. Skin: Skin is warm and dry and no rashes. Circumferential right lower extremity erythema of the right lower leg is warm to touch smalled breaks in skin where is appears dry skin was pealed off, no involvement of foot. swelling noted. tender to touch Psychiatric: Cooperative, appropriate mood & affect, normal judgment. Limitations: no limitations Course Vital Signs 04/13/20 00:15 Temperature 98.4 F Pulse Rate 91 Respiratory 20 Rate Blood Pressure 157/92 O2 Sat by Pulse 99 Oximetry Medical Decision Making - Medical Decision Making 44yo male presenting for cc of right lower leg pain, redness, swelling. Treated for cellulitis on and off past month. Patietn does not appear consistetn with history provided, have some suspicion for noncompliance. Patient will be admitted for failued outpatient treatment of right lower leg cellulitis as he has increased pain/redness/swelling and elevated white count. Patient agreeable to care plan and admission. - Lab Data Result diagrams: 04/13/20 00:48 04/13/20 00:48 Lab Results 04/13/20 04/13/20 04/13/20 Range/Units 00:48 00:48 00:48 WBC 15.1 H (3.8-10.6) k/uL RBC 5.24 (4.30-5.90) m/uL Hgb 13.4 (13.0-17.5) gm/dL Hct 42.7 (39.0-53.0) % MCV 81.5 (80.0-100.0) fL MCH 25.6 (25.0-35.0) pg MCHC 31.5 (31.0-37.0) g/dL RDW 15.3 (11.5-15.5) % Plt Count 368 (150-450) k/uL Neutrophils % 66 % Lymphocytes % 24 % Monocytes % 6 % Eosinophils % 2 % Basophils % 1 % Neutrophils # 9.9 H (1.3-7.7) k/uL Lymphocytes # 3.6 (1.0-4.8) k/uL Monocytes # 0.9 (0-1.0) k/uL Eosinophils # 0.3 (0-0.7) k/uL Basophils # 0.2 (0-0.2) k/uL Sodium 130 L (137-145) mmol/L Potassium 4.0 (3.5-5.1) mmol/L Chloride 90 L (98-107) mmol/L Carbon Dioxide 29 (22-30) mmol/L Anion Gap 11 mmol/L BUN 17 (9-20) mg/dL Creatinine 1.10 (0.66-1.25) mg/dL Est GFR (CKD-EPI)AfAm >90 (>60 ml/min/1.73 sqM) Est GFR (CKD-EPI)NonAf 81 (>60 ml/min/1.73 sqM) Glucose 134 H (74-99) mg/dL Plasma Lactic Acid Herve 1.1 (0.7-2.0) mmol/L Calcium 9.7 (8.4-10.2) mg/dL Total Bilirubin 0.7 (0.2-1.3) mg/dL AST 67 H (17-59) U/L ALT 63 H (4-49) U/L Alkaline Phosphatase 81 (38-126) U/L Total Protein 8.1 (6.3-8.2) g/dL Albumin 5.0 (3.5-5.0) g/dL Disposition Clinical Impression: Cellulitis, Failure of outpatient treatment, Right leg swelling, Leukocytosis Disposition: ADMITTED IP TO THIS HOSP Condition: Stable Is patient prescribed a controlled substance at d/c from ED?: No Referrals: Baldo Mckeon MD [Primary Care Provider] - 1-2 days Time of Disposition: : Decision to Admit Reason: Admit from EC Decision Date: 04/13/20 Decision Time:
[2020-04-13] MEDS ORDERED: traMADol 50 MG TAB PO PRN (14:03)
[2020-04-13] MEDS ORDERED: methocarbamoL 750 MG TAB PO PRN (14:03)
--- NOTE | 2020-04-13 14:10 | HP ---
HISTORY AND PHYSICAL CHIEF COMPLAINT: Pain and swelling in the right lower leg. HISTORY OF PRESENT ILLNESS: This is another admission for this 44-year-old . He has had problems with cellulitis in the legs in the past and his right leg started to become more red, painful and swollen. He came to the emergency room where it was felt that he should be admitted for IV antibiotics. He has no other complaints. REVIEW OF SYSTEMS: He has had no headaches, chest pain, shortness of breath, abdominal pain, nausea, vomiting, diarrhea, melena, renal failure, diabetes, etc. He does have hypertension. Past medical history, family history and personal and social histories reveal that he is on baclofen 10 mg q.i.d., chlorthalidone 25 mg once a day, lisinopril 40 once a day, Norvasc 10 once a day, Pepcid 20 mg once a day, Carafate q.i.d. and Wellbutrin SR 150 twice a day. He does have a history of hypertension. He also has obstructive sleep apnea. He does continue to smoke. He does use marijuana. Drinks only occasionally. PHYSICAL EXAMINATION: Blood pressure is 138/90 with a pulse of 69, respirations of 35, and he is afebrile. General he appeared to be overweight and in no acute distress. Skin color is normal. Skin is warm and dry. Lymph nodes are not enlarged. Head, ears, eyes, nose, mouth, and throat are normal. Neck veins not distended. Thyroid not enlarged. Chest is clear but breath sounds are diminished due to his size. Cardiac exam is normal sinus rhythm. Abdomen is protuberant, soft, nontender. Extremities demonstrated cellulitis with edema of the right lower leg. There is no drainage today or exudate. Neurologically he is intact. IMPRESSION: 1. Cellulitis of the right lower leg. 2. History of hypertension. 3. Sleep apnea. 4. History of depression. PLAN: 1. Bed rest. 2. IV fluids. 3. IV antibiotics. MMODL / IJN: [id number] /
[2020-04-13] MEDS: lisinopriL 20 MG TAB PO SCH (14:53)
[2020-04-13] MEDS: amLODIPine 10 MG TAB PO SCH (14:53)
[2020-04-13] MEDS: HYDROcodone/APAP 5-325MG 1 EACH TAB PO PRN ×2 (14:54→20:51)
[2020-04-13] MEDS: FAMOTIDINE 20 MG TAB PO SCH (14:54)
[2020-04-13] MEDS: CHLORTHALIDONE 25 MG TAB PO SCH (15:10)
[2020-04-13] MEDS: buPROPion SR 150 MG TABLET.ER PO SCH ×2 (15:10→20:51)
[2020-04-13] MEDS: SUCRALFATE 1 GM TAB PO SCH ×3 (15:10→20:51)
[2020-04-13] MEDS: ASPIRIN 325 MG TAB PO SCH (20:50)
[2020-04-14] MEDS: buPROPion SR 150 MG TABLET.ER PO SCH ×2 (08:00→20:42)
[2020-04-14] MEDS: CHLORTHALIDONE 25 MG TAB PO SCH (08:01)
[2020-04-14] MEDS: FAMOTIDINE 20 MG TAB PO SCH (08:01)
[2020-04-14] MEDS: ASPIRIN 325 MG TAB PO SCH ×2 (08:01→20:42)
[2020-04-14] MEDS: SUCRALFATE 1 GM TAB PO SCH ×4 (08:01→21:14)
[2020-04-14] MEDS: SODIUM CHLORIDE 0.9% 1,000 ML IV SCH ×2 (08:01→14:30)
[2020-04-14] MEDS: amLODIPine 10 MG TAB PO SCH (11:46)
[2020-04-14] MEDS: HYDROcodone/APAP 5-325MG 1 EACH TAB PO PRN ×2 (11:46→20:42)
[2020-04-14] MEDS: lisinopriL 20 MG TAB PO SCH (11:46)
[2020-04-14 16:17] LABS: ALT 52 U/L (4-49); AST 58 U/L (17-59); African American GFR (CKD) >90 (>60 ml/min/1.73 sqM); Albumin 4.4 g/dL (3.5-5.0); Alkaline Phosphatase 76 U/L (38-126); Anion Gap 10 mmol/L; Blood Urea Nitrogen 9 mg/dL (9-20); Calcium 9.1 mg/dL (8.4-10.2); Carbon Dioxide 27 mmol/L (22-30); Chloride 97 mmol/L (98-107); Glucose 200 mg/dL (74-99); Non-African American GFR(CKD) >90 (>60 ml/min/1.73 sqM); Potassium 4.1 mmol/L (3.5-5.1); Sodium 134 mmol/L (137-145); Total Bilirubin 0.4 mg/dL (0.2-1.3); Total Protein 7.3 g/dL (6.3-8.2)
[2020-04-14 16:19] LABS: Basophils # (A) 0.1 k/uL (0-0.2); Basophils % (A) 1 %; Eosinophils # (A) 0.3 k/uL (0-0.7); Eosinophils % (A) 3 %; HCT 43.6 % (39.0-53.0); HGB 13.2 gm/dL (13.0-17.5); Hypochromasia Slight; Lymphocytes # (A) 3.3 k/uL (1.0-4.8); Lymphocytes % (A) 31 %; MCH 25.5 pg (25.0-35.0); MCHC 30.3 g/dL (31.0-37.0); MCV 84.3 fL (80.0-100.0); Mean Platelet Volume 7.9; Monocytes # (A) 0.8 k/uL (0-1.0); Monocytes % (A) 7 %; Neutrophils # (A) 5.7 k/uL (1.3-7.7); Neutrophils % (A) 55 %; Platelet Count 326 k/uL (150-450); RBC 5.17 m/uL (4.30-5.90); RDW 15.4 % (11.5-15.5); WBC 10.4 k/uL (3.8-10.6)
[2020-04-14] MEDS: BACLOFEN 10 MG TAB PO SCH ×2 (17:23→21:14)
--- NOTE | 2020-04-14 21:26 | P.CONS ---
History of Present Illness - Reason for Consult Consult date: 04/14/20 Right leg cellulitis Requesting physician: Baldo Mckeon - Chief Complaint Right leg swelling and redness x week - History of Present Illness Patient is a 44-year-old -Central African male presenting to the ER at [facility] yesterday morning for evaluation of right leg swelling and pain currently the patient seemed to have problem with bilateral lower extremity swelling started a few weeks ago patient mentioned his left leg swelling improved however he couldn't have problem with the right lower extremity swelling with associated pain and redness patient described the pain in the leg to be more of a dull aching to throbbing intensity about 7 out of 10 and no radiation patient denies having any skin breakdown or any drainage currently has been evaluated at [facility] ER without any specific diagnosis patient has been treated with oral Bactrim DS however did not have a significant improvement has she presented to [facility] ER patient was evaluated by the physician on arrival to the the patient was afebrile he did have a white count of 15,000 patient was started on Rocephin and subsequently has been switched over to cefazolin 2 g every 8 hours infectious disease was consulted for further management of antibiotic therapy Review of Systems Positive point has been mentioned in the HPI rest of the systems are negative Past Medical History Past Medical History: Hyperlipidemia, Hypertension Additional Past Medical History / Comment(s): [place] Palsy, back pain History of Any Multi-Drug Resistant Organisms: None Reported Past Surgical History: Appendectomy Past Anesthesia/Blood Transfusion Reactions: No Reported Reaction Past Psychological History: No Psychological Hx Reported Smoking Status: Current every day smoker Past Alcohol Use History: Occasional Additional Past Alcohol Use History / Comment(s): smokes 1 PPD, started smoking age 14 Past Drug Use History: Marijuana - Past Family History Mother Family Medical History: Cancer Medications and Allergies Home Medications Medication Instructions Recorded Confirmed Type Aspirin 325 mg PO BID #60 tab 01/11/19 04/13/20 Rx Amoxicillin/Potassium Clav 1 tab PO BID 04/13/20 04/13/20 History [Augmentin 875-125 Tablet] Chlorthalidone 25 mg PO DAILY 04/13/20 04/13/20 History Famotidine 20 mg PO DAILY 04/13/20 04/13/20 History HYDROcodone/APAP 5-325MG [[place] 1 tab PO Q6HR PRN 04/13/20 04/13/20 History 5-325] Methocarbamol [Robaxin-750] 750 mg PO QID PRN 04/13/20 04/13/20 History Sucralfate [Carafate] 1 gm PO QID 04/13/20 04/13/20 History amLODIPine [Norvasc] 10 mg PO DAILY 04/13/20 04/13/20 History buPROPion HCL [Wellbutrin SR] 150 mg PO Q12H 04/13/20 04/13/20 History lisinopriL 40 mg PO DAILY 04/13/20 04/13/20 History methylPREDNISolone Dose Pack See Taper PO DAILY 04/13/20 04/13/20 History [Medrol Dose Pack] traMADol HCL [Ultram] 50 mg PO Q6HR PRN 04/13/20 04/13/20 History Allergies Allergy/AdvReac Type Severity Reaction Status Date / Time No Known Allergies Allergy Verified 04/13/20 09:06 Physical Exam Vitals: Vital Signs Temp Pulse Resp BP BP Pulse Ox 04/14/20 14:24 98.1 F 73 16 113/60 100 04/14/20 11:44 76 142/84 04/14/20 09:35 64 122/73 04/14/20 07:55 98.6 F 88 16 98/54 98 04/14/20 02:01 98.1 F 88 18 133/66 98 04/13/20 19:29 98.2 F 81 18 139/84 98 Intake and Output 04/14/20 04/14/20 04/14/20 06:59 14:59 22:59 Intake Total 1610 Balance 1610 Intake: Intake, IV Titration 1610 Amount Sodium Chloride 0.9% 1, 1560 000 ml @ 130 mls/hr IV . [id number] MARIANNA Rx#:[id number] ceFAZolin 2 gm In Sodium 50 Chloride 0.9% 50 ml @ 100 mls/hr IVPB Q8HR MARIANNA Rx# :[id number] Other: Voiding Method Toilet Toilet # Voids 3 1 GENERAL DESCRIPTION: Middle-aged male lying in bed, no distress. No tachypnea or accessory muscle of respiration use. HEENT: Shows Pallor , no scleral icterus. Oral mucous membrane is dry. No pharyngeal erythema or thrush NECK: Trachea central, no thyromegaly. LUNGS: Unlabored breathing. Clear to auscultation anteriorly. No wheeze or crackle. HEART: S1, S2, regular rate and rhythm. No loud murmur ABDOMEN: Soft, no tenderness , guarding or rigidity, no organomegaly EXTREMITIES: Right lower extremity with swelling minimal warmth wound or any drainage SKIN: No rash, no masses palpable. NEUROLOGICAL: The patient is awake, alert, oriented x3, mood and affect normal. Results CBC & Chem 7: 04/14/20 15:44 04/14/20 15:44 Labs: Microbiology - Last 24 Hours (Table) 04/13/20 00:48 Blood Culture - Preliminary Blood No Growth after 24 hours Assessment and Plan Assessment: 1-patient presented to hospital the right lower extremity pain swelling and some redness this patient apparently recently has been treated with the Bactrim DS without any improvement however did mention overall improvement with the cefazolin and likely pointing towards staphylococcal cellulitis however no fever has been noticed that he did have elevated white count normalized with the antibiotics (1) Cellulitis of right leg Narrative/Plan: 1-we will obtain her right lower extremity Doppler to rule out DVT 2-cefazolin 2 g every 8 hours We will follow on clinical condition and cultures to further adjust medication if needed Thank you for this consultation will follow this patient with you Current Visit: Yes Status: Acute Code(s): L03.115 - CELLULITIS OF RIGHT LOWER LIMB SNOMED Code(s): 680212177 (2) Failure of outpatient treatment Current Visit: Yes Status: Acute Code(s): Z78.9 - OTHER SPECIFIED HEALTH STATUS SNOMED Code(s): 654311812 Time with Patient: Greater than 30
[2020-04-15] MEDS: SODIUM CHLORIDE 0.9% 1,000 ML IV SCH ×4 (00:05→22:35)
[2020-04-15] MEDS: SUCRALFATE 1 GM TAB PO SCH ×4 (08:20→21:15)
[2020-04-15] MEDS: CHLORTHALIDONE 25 MG TAB PO SCH (08:20)
[2020-04-15] MEDS: ASPIRIN 325 MG TAB PO SCH ×2 (08:20→21:15)
[2020-04-15] MEDS: lisinopriL 20 MG TAB PO SCH (08:21)
[2020-04-15] MEDS: FAMOTIDINE 20 MG TAB PO SCH (08:21)
[2020-04-15] MEDS: amLODIPine 10 MG TAB PO SCH (08:21)
[2020-04-15] MEDS: BACLOFEN 10 MG TAB PO SCH ×3 (08:21→21:15)
[2020-04-15] MEDS: buPROPion SR 150 MG TABLET.ER PO SCH ×2 (08:21→21:15)
--- NOTE | 2020-04-15 11:14 | PN ---
PROGRESS NOTE DATE: 04/14/20 CHIEF COMPLAINT: Cellulitis, right leg. HISTORY OF PRESENT ILLNESS: This gentleman is doing fairly well with the right leg is still swollen, so that cellulitic and intense. He has no other complaints. PHYSICAL EXAMINATION: Chest is clear. Cardiac exam is normal. Abdomen is protuberant soft extremities demonstrate the right leg still be indurated and erythematous from the knee down. IMPRESSION: Cellulitis of the right leg. PLAN: 1. Continue with elevation and IV antibiotics. 2. Consult Infectious Disease. MMODL / IJN: [id number] /
--- NOTE | 2020-04-15 12:12 | US ---
EXAMINATION TYPE: US venous doppler duplex LE RT DATE OF EXAM: 04/15/2020 7:10 AM COMPARISON: Left lower chest on the venous ultrasound 09/27/2018 CLINICAL HISTORY: Swelling rule out DVT. SIDE PERFORMED: Right TECHNIQUE: The lower extremity deep venous system is examined utilizing real time linear array sonog jeremy with graded compression, doppler sonography and color-flow sonography. VESSELS IMAGED: External Iliac Vein (EIV) Common Femoral Vein Deep Femoral Vein Greater Saphenous Vein * Femoral Vein Popliteal Vein Small Saphenous Vein * Proximal Calf Veins (* superficial vessels) Right Leg: Negative for DVT Incidental note is made of prominent nodes with retained fatty hilum right groin. Grayscale, color doppler, spectral doppler imaging performed of the deep veins of the right lower ext remity. There is normal flow, compressibility, vascular waveforms. IMPRESSION: No ultrasound evidence for acute DVT in the right lower extremity.
--- NOTE | 2020-04-15 13:38 | PN ---
PROGRESS NOTE DATE OF SERVICE: 04/15/2020 REASON FOR FOLLOWUP: Right lower extremity cellulitis. INTERVAL HISTORY: The patient is currently afebrile. The patient is feeling better. Breathing comfortably. Denies having any chest pain. No shortness of breath or cough. No nausea or vomiting or abdominal pain. Overall, right leg swelling and redness has slightly decreased. PHYSICAL EXAMINATION: On examination, blood pressure 129/77, pulse of 86, temperature 98.9. He is 97% on room air. General description is a middle-aged male lying in bed in no distress. Respiratory system: Unlabored breathing, clear to auscultation anteriorly. Heart S1, S2. Regular rate and rhythm. Right leg swelling and redness has slightly decreased. LABS: White count normal. Blood culture negative. Lower extremity Doppler negative for DVT. Did show some groin. DIAGNOSTIC IMPRESSION AND PLAN: Patient with right lower extremity cellulitis with diffuse cellulitis likely streptococcal disease, clinically improved on cefazolin. We will continue to finish therapy with oral Keflex. Continue supportive care. MMODL / IJN: [id number] /
[2020-04-15] MEDS: HYDROcodone/APAP 5-325MG 1 EACH TAB PO PRN (21:15)
[2020-04-16 03:13] VITALS: PULSE 74
[2020-04-16] MEDS: SODIUM CHLORIDE 0.9% 1,000 ML IV SCH (06:36)
[2020-04-16 07:41] VITALS: BP 172/89; TEMP 98
[2020-04-16] MEDS: FAMOTIDINE 20 MG TAB PO SCH (07:42)
[2020-04-16] MEDS: buPROPion SR 150 MG TABLET.ER PO SCH (07:42)
[2020-04-16] MEDS: lisinopriL 20 MG TAB PO SCH (07:42)
[2020-04-16] MEDS: amLODIPine 10 MG TAB PO SCH (07:42)
[2020-04-16] MEDS: CHLORTHALIDONE 25 MG TAB PO SCH (07:42)
[2020-04-16] MEDS: BACLOFEN 10 MG TAB PO SCH (07:42)
[2020-04-16] MEDS: SUCRALFATE 1 GM TAB PO SCH (07:42)
[2020-04-16] MEDS: ASPIRIN 325 MG TAB PO SCH (07:43)
[2020-04-16 07:50] VITALS: RESP 16
[2020-04-16] MEDS ORDERED: CEPHALEXIN 500 MG CAP PO SCH (13:00)
--- NOTE | 2020-04-16 18:16 | PN ---
PROGRESS NOTE DATE OF SERVICE: 04/15/2020 CHIEF COMPLAINT: Cellulitis of the right lower leg. HISTORY OF PRESENT ILLNESS: This gentleman's leg is improving slowly. PHYSICAL EXAMINATION: Chest is clear. The cardiac exam is normal. Abdomen is soft and protuberant. Extremities are about the same. There is still erythema and redness as well as edema in the right lower leg. Calf is not tender. Homans is negative. IMPRESSION: 1. Cellulitis of the right lower extremity. 2. Obstructive sleep apnea. PLAN: Continue with IV fluids, antibiotics and elevation. MMODL / IJN: [id number] /
--- NOTE | 2020-04-16 18:52 | HP ---
HISTORY AND PHYSICAL CHIEF COMPLAINT: Pain and swelling in the right lower leg. HISTORY OF PRESENT ILLNESS: This is another admission for this 44-year-old -Indian male who has a history of dependent edema, hypertension and sleep apnea. He came to the emergency room with increased pain, redness and swelling in the right lower extremity. He had been being treated as an outpatient but had failed treatment. REVIEW OF SYSTEMS: He denies any syncope, headaches, chest pain, heart disease, abdominal pain, nausea, vomiting, diarrhea, melena, urinary complaints, etc. He has had no shaking chills or fever. Past medical history, family history, and personal and social histories are otherwise unremarkable or noncontributory. PHYSICAL EXAMINATION: Blood pressure is 138/90 with respirations of 36 and pulse of 89. He is afebrile. In general he appears to be obese and he is uncomfortable. Head, ears, eyes, nose, mouth and throat are normal. Chest is clear to auscultation and percussion. Cardiac exam demonstrates normal sinus rhythm. The abdomen is protuberant, soft and nontender without visceromegaly or masses. Extremities demonstrate edema in both lower legs, but there is cellulitis on the right from the knee down to the ankle. There is induration, tenderness, redness and swelling. Neurologically he is intact. IMPRESSION: 1. Cellulitis of the right lower extremity. 2. Obesity. 3. Sleep apnea. PLAN: 1. Bed rest. 2. IV fluids. 3. Elevation of the leg. 4. IV antibiotics. MMSONDRAL / IJN: [id number] /
--- NOTE | 2020-04-17 00:49 | DS ---
DISCHARGE SUMMARY CHIEF COMPLAINT: Cellulitis to the right lower extremity. HISTORY OF PRESENT ILLNESS AND PHYSICAL EXAM: Details of this man's history and physical can be found in the initial workup. LABORATORY STUDIES: While he was in a hospital he had laboratory studies, details of which can be found in the laboratory section of his chart. COURSE IN THE HOSPITAL: After admission, he was placed on bedrest, started on intravenous fluids and he was placed on heparin and elevation of the leg. He was also placed on antibiotics. He was seen by Infectious Disease. The cellulitis slowly began to subside. He was doing well enough it was felt that he could go home on the . FINAL DIAGNOSES: 1. Cellulitis of the right lower extremity. 2. Obstructive sleep apnea. 3. Hypertension. OPERATIONS: None. CONSULTATIONS: Infectious Disease. He is improved. MMODL / IJN: [id number] /
== END 2020-04-16 12:03 | disposition home or self-care (01) | DRG 603 ==
LOC: EC 00:10 → 1SOBS 02:12 → OBSVTOIN 04-15 08:21
PROVIDERS: ADMIT Family Medicine; ATTEND Family Medicine
DX: L03.115 Cellulitis of right lower limb (principal); Z68.41 Body mass index [BMI] 40.0-44.9, adult; E66.9 Obesity, unspecified; G47.33 Obstructive sleep apnea (adult) (pediatric); M54.5 Low back pain; E78.5 Hyperlipidemia, unspecified; I10 Essential (primary) hypertension; F32.9 Major depressive disorder, single episode, unspecified; Z91.19 Patient's noncompliance with other medical treatment and regimen; F17.210 Nicotine dependence, cigarettes, uncomplicated; Z79.82 Long term (current) use of aspirin; Z79.899 Other long term (current) drug therapy; Z90.49 Acquired absence of other specified parts of digestive tract; Z86.69 Personal history of other diseases of the nervous system and sense organs; Z98.890 Other specified postprocedural states; Z80.9 Family history of malignant neoplasm, unspecified
CPT/HCPCS: 36415; 80053; 83605; 85025; 87040; 94660; 96365; 96367; 99284

== ENCOUNTER 2020-05-14 17:38 | Emergency (ER) | payer OTHER ==
[2020-05-14 17:59] VITALS: RESP 18; TEMP 97.8
--- NOTE | 2020-05-14 20:47 | US ---
EXAMINATION TYPE: US venous doppler duplex LE RT DATE OF EXAM: 05/14/2020 8:38 PM COMPARISON: US CLINICAL HISTORY: swelling. Swelling x couple weeks. No hx of DVT. Patient does not take blood thinne rs. SIDE PERFORMED: Right TECHNIQUE: The lower extremity deep venous system is examined utilizing real time linear array sonog jeremy with graded compression, doppler sonography and color-flow sonography. VESSELS IMAGED: External Iliac Vein (EIV) Common Femoral Vein Deep Femoral Vein Greater Saphenous Vein * Femoral Vein Popliteal Vein Small Saphenous Vein * Proximal Calf Veins (* superficial vessels) Right Leg: No evidence of DVT in veins imaged at this time from prox calf veins to EIV. Hypoechoic a reas with hyperechoic centers seen in right groin. Largest measures: 3.0 x 2.6 x 1.6 cm. IMPRESSION: No sign of deep vein thrombosis in the right leg.
--- NOTE | 2020-05-14 20:54 | ED ---
Lower Extremity Injury HPI - General Chief Complaint: Extremity Injury, Lower Stated Complaint: R Leg Swelling Time Seen by Provider: 05/14/20 19:19 Source: patient, RN notes reviewed, old records reviewed Mode of arrival: ambulatory Limitations: no limitations - History of Present Illness Initial Comments: Patient is a 45-year-old -[place] male presents emergency department today with right lower external may swelling. He reports his preceding diagnosed with cellulitis. He states this is similar to his last cellulitis flareup. He reports that he has been off antibiotics for approximately a month. Patient states that he's had no fevers or chills. Denies any fall or trauma to the leg. - Related Data Home Medications Medication Instructions Recorded Confirmed Chlorthalidone 25 mg PO DAILY 04/13/20 04/13/20 Famotidine 20 mg PO DAILY 04/13/20 04/13/20 HYDROcodone/APAP 5-325MG [[place] 1 tab PO Q6HR PRN 04/13/20 04/13/20 5-325] Methocarbamol [Robaxin-750] 750 mg PO QID PRN 04/13/20 04/13/20 Sucralfate [Carafate] 1 gm PO QID 04/13/20 04/13/20 amLODIPine [Norvasc] 10 mg PO DAILY 04/13/20 04/13/20 buPROPion HCL [Wellbutrin SR] 150 mg PO Q12H 04/13/20 04/13/20 lisinopriL 40 mg PO DAILY 04/13/20 04/13/20 traMADol HCL [Ultram] 50 mg PO Q6HR PRN 04/13/20 04/13/20 Previous Rx's Medication Instructions Recorded Aspirin 325 mg PO BID #60 tab 01/11/19 Cephalexin [Keflex] 500 mg PO QID #60 cap 04/16/20 Cephalexin [Keflex] 500 mg PO Q6HR 7 Days #28 cap 05/14/20 Allergies Allergy/AdvReac Type Severity Reaction Status Date / Time No Known Allergies Allergy Verified 05/14/20 17:56 Review of Systems ROS Statement: Those systems with pertinent positive or pertinent negative responses have been documented in the HPI. ROS Other: All systems not noted in ROS Statement are negative. Past Medical History Past Medical History: Hyperlipidemia, Hypertension Additional Past Medical History / Comment(s): [place] Palsy, back pain History of Any Multi-Drug Resistant Organisms: None Reported Past Surgical History: Appendectomy Past Anesthesia/Blood Transfusion Reactions: No Reported Reaction Past Psychological History: No Psychological Hx Reported Smoking Status: Current every day smoker Past Alcohol Use History: Occasional Past Drug Use History: Marijuana - Past Family History Mother Family Medical History: Cancer General Exam - General Exam Comments Initial Comments: 45-year-old male. No distress. Limitations: no limitations General appearance: alert, in no apparent distress Head exam: Present: atraumatic, normocephalic, normal inspection Eye exam: Present: normal appearance, PERRL, EOMI. Absent: scleral icterus, conjunctival injection, periorbital swelling ENT exam: Present: normal exam Neck exam: Present: normal inspection. Absent: tenderness, meningismus, lymphadenopathy Respiratory exam: Present: normal lung sounds bilaterally. Absent: respiratory distress, wheezes, rales, rhonchi, stridor Cardiovascular Exam: Present: regular rate, normal rhythm, normal heart sounds. Absent: systolic murmur, diastolic murmur, rubs, gallop, clicks GI/Abdominal exam: Present: soft, normal bowel sounds. Absent: distended, tenderness, guarding, rebound, rigid Extremities exam: Present: normal inspection, full ROM, normal capillary refill, other (Patient has right lower extremity swelling. Dorsalis pedis is pulses 2+. Does have some calf tenderness is mild erythema noted. Full range of motion of ankle and toes.). Absent: tenderness, pedal edema, joint swelling, calf tenderness Back exam: Present: normal inspection Neurological exam: Present: alert, oriented X3, CN II-XII intact Psychiatric exam: Present: normal affect, normal mood Skin exam: Present: warm, dry, intact, normal color. Absent: rash Course Vital Signs 05/14/20 05/14/20 17:57 21:11 Temperature 97.8 F 97.8 F Pulse Rate 87 78 Respiratory 18 18 Rate Blood Pressure 118/73 114/70 O2 Sat by Pulse 98 99 Oximetry Medical Decision Making - Medical Decision Making 45 year old male concern for right lower extremity swelling for the past week. Reports similar to previous cellulitis. On review of his last visit he was treated with Keflex. Patient at this time has no fevers or chills. Ultrasound was completely negative for DVT. Discussed putting the Patient on antibiotics at this time and close follow up with primary care doctor. He will has an appointment on Wednesday. Discusses appropriate time for follow-up and if there is any worsening signs or symptoms he can return to the ER for failure of outpatient treatment. Patient is agreeable treatment plan will comply. - Radiology Data Radiology results: report reviewed Right lower extremity ultrasound was negative for DVT. Disposition Clinical Impression: Cellulitis, Right leg swelling Disposition: HOME SELF-CARE Condition: Good Instructions (If sedation given, give patient instructions): Cellulitis (ED) Additional Instructions: Take the medications as prescribed. Return to the ED if any alarming signs or symptoms occur. Follow-up with primary care doctor in the next 2 days. Prescriptions: Cephalexin [Keflex] 500 mg PO Q6HR 7 Days #28 cap Is patient prescribed a controlled substance at d/c from ED?: No Referrals: Baldo Mckeon MD [Primary Care Provider] - 1-2 days Time of Disposition: 20:55
[2020-05-14] MEDS ORDERED: CEPHALEXIN 500MG STARTER PACK 4 CAP BTL PO STA (20:57)
[2020-05-14 21:12] VITALS: BP 114/70; PULSE 78
== END 2020-05-14 21:11 | disposition home or self-care (01) ==
LOC: EC 17:38
DX: L03.115 Cellulitis of right lower limb (principal); M79.89 Other specified soft tissue disorders; I10 Essential (primary) hypertension; F17.200 Nicotine dependence, unspecified, uncomplicated; Z79.899 Other long term (current) drug therapy
CPT/HCPCS: 99284

== ENCOUNTER → 2020-12-10 | Outpatient (CLI) | payer OTHER ==
--- NOTE | 2020-12-10 18:55 | CONS ---
CONSULTATION HISTORY OF PRESENT ILLNESS: 45-year-old male patient who has had history of obstructive sleep apnea. He is coming in for re-evaluation. He is currently not using his CPAP unit. He tells me does not have any holes or supplies. His sleep study was done from another hospital, which I am assuming it is [facility] many years back. He is currently working at [employer]. He does the evening shifts between 8 a.m. and 3:00 am. He works 5 days a week and he takes 2 days off. He is sleeping between 7:00 am in the morning and 11:00 am and on days off, he sleeps regular hours. He feels very much tired and sleepy during the day and he is having difficulty functionality during working hours. For that reason, he was referred to me. His current weight is around 303 pounds. He does snore. He does quit breathing and he has excessive daytime sleepiness. Occasional wakes up from sleep gasping for air. He wakes up also with a dry mouth. He has occasional heartburn. He is falling asleep on and off during the day activities. As such, he is quite symptomatic. His current [place] score is 15. No stroke. No head trauma. No anxiety. No depression. No sleep paralysis. No hallucinations. No cataplexy. PAST MEDICAL HISTORY: Obstructive sleep apnea and hypertension. PAST SURGICAL HISTORY: None. DRUG ALLERGIES: Not known. MEDICATIONS: Outpatient medications: He takes a blood pressure pill, exactly the type of medication is not known. SOCIAL HISTORY: Smokes weed, approximately 6 joints on a daily basis. No history of alcoholism. No history of drugs. FAMILY HISTORY: Negative for sleep apnea. Hypertension runs in the family. REVIEW OF SYSTEMS: 14-point review of system was done. Most positive finding is his excessive tiredness and sleepiness during the day. He does have also arthritic pain in his knees. He takes occasional [place]. No anxiety. No depression. No grinding of the teeth. No palpitations. No angina. No shortness of breath. No sleepwalking or sleep talking. No nocturia. PHYSICAL EXAMINATION: VITAL SIGNS: BP is 130/79, pulse is 79, respirations 16, temperature 96.9, saturation 95% on room air. Height is 6 feet, 0, weight is 303 and Plano score is 15. BMI is 41.3. Neck size is 19 inches. GENERAL APPEARANCE: Calm and comfortable. Head is atraumatic, normocephalic. NECK: Supple. Mallampati class 4. There is no goiter or neck mass. LUNGS: Diminished, otherwise clear. HEART: Heart sounds are regular rate and rhythm. Normal S1, S2. No S3, S4. No murmurs. ABDOMEN: Soft, nontender. No organomegaly. EXTREMITIES: No edema. No cyanosis or clubbing. IMPRESSION: 1. Obstructive sleep apnea. Currently not receiving any treatment. The patient has a CPAP unit at home which probably is functional, yet the patient does not have the supplies and he has not used his machine for a few years. Documentation on his original sleep study and the circumstances of diagnosis and treatment is not available to me at this point. I am assuming this was done at [facility]. 2. Insufficient sleep syndrome. 3. reconciliation specialist worker. 4. Excessive hypersomnia, [place] score of 15. 5. Obesity with a BMI of 41.3. 6. Marijuana use, approximately 6 joints on a daily basis. 7. Hypertension. PLAN: 1. I offered this patient a new tubing/hose and an AirFit N30I nose mask. I asked him to go back on his original CPAP unit that was given to him several years back. 2. I asked the patient to bring in the machine for me to check and document his underlying pressures. 3. I asked the patient to undergo a split night study to reestablish diagnosis and make appropriate adjustments on his pressure settings and based on that, I will either offer the patient a new CPAP unit or make the appropriate adjustments on his older unit. 4. Encourage weight loss. 5. He needs to definitely extend his sleep hours to an average of 7 hours of sleep per night or per day. He has to sleep between 7:00 am and/or even 6:00 am till 1:00 pm and he was made aware of that. He obviously has a component of insufficient sleep syndrome. 6. Cut down on the marijuana use. 7. Weight loss. 8. Implement good sleep hygiene measures. 9. We will continue to follow and make further recommendations based on his progress. MMODL / IJN: [id number] /
== END ==
LOC: SLEEP 15:36
PROVIDERS: ATTEND Internal Medicine Critical Care Medicine
DX: G47.33 Obstructive sleep apnea (adult) (pediatric) (principal); E66.9 Obesity, unspecified; F51.12 Insufficient sleep syndrome; F12.90 Cannabis use, unspecified, uncomplicated; I10 Essential (primary) hypertension; Z68.41 Body mass index [BMI] 40.0-44.9, adult
CPT/HCPCS: 99211

== ENCOUNTER 2021-02-28 21:06 | Observation (INO) | payer OTHER ==
[2021-02-28] MEDS ORDERED: ONDANSETRON 4 MG/2 ML VIAL IVP STA (21:13)
[2021-02-28] MEDS ORDERED: SODIUM CHLORIDE 0.9% 1,000 ML IV STA ×2 (21:13)
--- NOTE | 2021-02-28 21:35 | ED ---
Nausea/Vomiting/Diarrhea HPI - General Chief complaint: Nausea/Vomiting/Diarrhea Stated complaint: vomiting Time Seen by Provider: 02/28/21 21:12 Source: patient, EMS, RN notes reviewed, old records reviewed Mode of arrival: EMS Limitations: no limitations - History of Present Illness Initial comments: This is a 45-year-old male to the ER for evaluation. Today patient is a for evaluation regards to nausea vomiting chest pain abdominal pain. Patient has history of high blood pressure possible diabetes. Patient has no recent travel history sick contacts. Patient arrived work sinus rhythm not feeling well for the last few days and then had significant vomiting at work tonight. Patient presents tonight with chest pain, nausea and not feeling well MD complaint: nausea, vomiting, abdominal pain, other (Chest pain) -: days(s) Description of Vomiting: food contents Associated Abdominal Pain: Yes Location: diffuse Radiation: none Severity: moderate Severity scale (1-10): 5 Quality: stabbing Consistency: intermittent Improves with: none Worsens with: none Context: sick contacts Associated Symptoms: chest pain, loss of appetite, nausea/vomiting, shortness of breath, weakness - Related Data Home Medications Medication Instructions Recorded Confirmed Chlorthalidone 25 mg PO DAILY 04/13/20 02/28/21 Famotidine 20 mg PO DAILY 04/13/20 02/28/21 HYDROcodone/APAP 5-325MG [[place] 1 tab PO Q6HR PRN 04/13/20 02/28/21 5-325] Methocarbamol [Robaxin-750] 750 mg PO QID PRN 04/13/20 02/28/21 Sucralfate [Carafate] 1 gm PO QID 04/13/20 02/28/21 amLODIPine [Norvasc] 10 mg PO DAILY 04/13/20 02/28/21 buPROPion HCL [Wellbutrin SR] 150 mg PO Q12H 04/13/20 02/28/21 lisinopriL 40 mg PO DAILY 04/13/20 02/28/21 Pantoprazole Sodium [Protonix] 40 mg PO DAILY 02/28/21 02/28/21 Allergies Allergy/AdvReac Type Severity Reaction Status Date / Time No Known Allergies Allergy Verified 02/28/21 23:04 Review of Systems ROS Statement: Those systems with pertinent positive or pertinent negative responses have been documented in the HPI. ROS Other: All systems not noted in ROS Statement are negative. Past Medical History Past Medical History: Hyperlipidemia, Hypertension Additional Past Medical History / Comment(s): [place] Palsy, back pain History of Any Multi-Drug Resistant Organisms: None Reported Past Surgical History: Appendectomy, Joint Replacement Additional Past Surgical History / Comment(s): L Knee replacement 2019 Past Anesthesia/Blood Transfusion Reactions: No Reported Reaction Past Psychological History: No Psychological Hx Reported Smoking Status: Current every day smoker Past Alcohol Use History: Occasional Past Drug Use History: Marijuana - Past Family History Mother Family Medical History: Cancer General Exam Limitations: no limitations General appearance: alert, in no apparent distress Head exam: Present: atraumatic, normocephalic, normal inspection Eye exam: Present: normal appearance, PERRL, EOMI. Absent: scleral icterus, conjunctival injection, periorbital swelling ENT exam: Present: normal exam, mucous membranes moist Neck exam: Present: normal inspection. Absent: tenderness, meningismus, lymphadenopathy Respiratory exam: Present: normal lung sounds bilaterally. Absent: respiratory distress, wheezes, rales, rhonchi, stridor Cardiovascular Exam: Present: regular rate, normal rhythm, normal heart sounds. Absent: systolic murmur, diastolic murmur, rubs, gallop, clicks GI/Abdominal exam: Present: soft, normal bowel sounds. Absent: distended, tend erness, guarding, rebound, rigid Extremities exam: Present: normal inspection, full ROM, normal capillary refill. Absent: tenderness, pedal edema, joint swelling, calf tenderness Back exam: Present: normal inspection Neurological exam: Present: alert, oriented X3, CN II-XII intact Psychiatric exam: Present: normal affect, normal mood Skin exam: Present: warm, dry, intact, normal color. Absent: rash Course Vital Signs 02/28/21 02/28/21 02/28/21 21:07 21:40 22:10 Temperature 98.1 F Pulse Rate 72 61 67 Respiratory 18 19 16 Rate Blood Pressure 130/60 114/70 119/69 O2 Sat by Pulse 97 100 100 Oximetry 02/28/21 02/28/21 02/28/21 22:40 23:10 23:40 Temperature Pulse Rate 62 57 L 70 Respiratory 16 18 18 Rate Blood Pressure 94/67 109/65 122/80 O2 Sat by Pulse 99 98 97 Oximetry 03/01/21 00:10 Temperature Pulse Rate 59 L Respiratory 18 Rate Blood Pressure 107/72 O2 Sat by Pulse 97 Oximetry - Reevaluation(s) Reevaluation #1: 02/28/21 23:02 Medical record is reviewed Reevaluation #2: 02/28/21 23:02 Patient does have mild symptom improvement currently Reevaluation #3: 02/28/21 23:02 Patient has persistent chest pain here in the ER - Consultations Consultation #1: Spoke with Dr. Mckeon who agrees to admit this patient Medical Decision Making - Medical Decision Making 45 male to the ER for chest pain nausea vomiting back pain. Patient states he does not feel well he still concern for his heart will be admitted for chest pain observation - Lab Data Result diagrams: 02/28/21 21:19 02/28/21 21:19 Lab Results 02/28/21 02/28/21 02/28/21 Range/Units 21:19 21:19 21:19 WBC 12.9 H (3.8-10.6) k/uL RBC 5.44 (4.30-5.90) m/uL Hgb 14.8 (13.0-17.5) gm/dL Hct 45.0 (39.0-53.0) % MCV 82.7 (80.0-100.0) fL MCH 27.2 (25.0-35.0) pg MCHC 32.9 (31.0-37.0) g/dL RDW 15.2 (11.5-15.5) % Plt Count 333 (150-450) k/uL MPV 7.2 Neutrophils % 68 % Lymphocytes % 23 % Monocytes % 6 % Eosinophils % 1 % Basophils % 1 % Neutrophils # 8.7 H (1.3-7.7) k/uL Lymphocytes # 2.9 (1.0-4.8) k/uL Monocytes # 0.8 (0-1.0) k/uL Eosinophils # 0.2 (0-0.7) k/uL Basophils # 0.1 (0-0.2) k/uL PT 10.2 (9.0-12.0) sec INR 0.9 (<1.2) APTT 23.0 (22.0-30.0) sec Sodium 133 L (137-145) mmol/L Potassium 4.2 (3.5-5.1) mmol/L Chloride 100 (98-107) mmol/L Carbon Dioxide 25 (22-30) mmol/L Anion Gap 8 mmol/L BUN 17 (9-20) mg/dL Creatinine 0.85 (0.66-1.25) mg/dL Est GFR (CKD-EPI)AfAm >90 (>60 ml/min/1.73 sqM) Est GFR (CKD-EPI)NonAf >90 (>60 ml/min/1.73 sqM) Glucose 110 H (74-99) mg/dL Plasma Lactic Acid Hevre (0.7-2.0) mmol/L Calcium 9.6 (8.4-10.2) mg/dL Phosphorus 4.2 (2.5-4.5) mg/dL Magnesium 1.7 (1.6-2.3) mg/dL Total Bilirubin 0.4 (0.2-1.3) mg/dL AST 40 (17-59) U/L ALT 40 (4-49) U/L Alkaline Phosphatase 46 (38-126) U/L Creatine Kinase 404 H (55-170) U/L Troponin I (0.000-0.034) ng/mL Total Protein 6.3 (6.3-8.2) g/dL Albumin 3.8 (3.5-5.0) g/dL 02/28/21 02/28/21 Range/Units 21:19 21:19 WBC (3.8-10.6) k/uL RBC (4.30-5.90) m/uL Hgb (13.0-17.5) gm/dL Hct (39.0-53.0) % MCV (80.0-100.0) fL MCH (25.0-35.0) pg MCHC (31.0-37.0) g/dL RDW (11.5-15.5) % Plt Count (150-450) k/uL MPV Neutrophils % % Lymphocytes % % Monocytes % % Eosinophils % % Basophils % % Neutrophils # (1.3-7.7) k/uL Lymphocytes # (1.0-4.8) k/uL Monocytes # (0-1.0) k/uL Eosinophils # (0-0.7) k/uL Basophils # (0-0.2) k/uL PT (9.0-12.0) sec INR (<1.2) APTT (22.0-30.0) sec Sodium (137-145) mmol/L Potassium (3.5-5.1) mmol/L Chloride (98-107) mmol/L Carbon Dioxide (22-30) mmol/L Anion Gap mmol/L BUN (9-20) mg/dL Creatinine (0.66-1.25) mg/dL Est GFR (CKD-EPI)AfAm (>60 ml/min/1.73 sqM) Est GFR (CKD-EPI)NonAf (>60 ml/min/1.73 sqM) Glucose (74-99) mg/dL Plasma Lactic Acid Herve 1.1 (0.7-2.0) mmol/L Calcium (8.4-10.2) mg/dL Phosphorus (2.5-4.5) mg/dL Magnesium (1.6-2.3) mg/dL Total Bilirubin (0.2-1.3) mg/dL AST (17-59) U/L ALT (4-49) U/L Alkaline Phosphatase (38-126) U/L Creatine Kinase (55-170) U/L Troponin I <0.012 (0.000-0.034) ng/mL Total Protein (6.3-8.2) g/dL Albumin (3.5-5.0) g/dL - EKG Data -: EKG Interpreted by Me (EKG shows sinus rhythm 71 GA 166 QRS 96 QTc 423) - Radiology Data Radiology results: report reviewed (CTA chest abdomen pelvis negative for acute disease), image reviewed Disposition Clinical Impression: Chest pain Disposition: ADMITTED IP TO THIS HOSP Condition: Undetermined Is patient prescribed a controlled substance at d/c from ED?: No
[2021-02-28 21:53] LABS: Basophils # (A) 0.1 k/uL (0-0.2); Basophils % (A) 1 %; Eosinophils # (A) 0.2 k/uL (0-0.7); Eosinophils % (A) 1 %; HGB 14.8 gm/dL (13.0-17.5); Lymphocytes # (A) 2.9 k/uL (1.0-4.8); Lymphocytes % (A) 23 %; MCH 27.2 pg (25.0-35.0); MCHC 32.9 g/dL (31.0-37.0); MCV 82.7 fL (80.0-100.0); Mean Platelet Volume 7.2; Monocytes # (A) 0.8 k/uL (0-1.0); Monocytes % (A) 6 %; Neutrophils # (A) 8.7 k/uL (1.3-7.7); Neutrophils % (A) 68 %; Platelet Count 333 k/uL (150-450); RBC 5.44 m/uL (4.30-5.90); RDW 15.2 % (11.5-15.5); WBC 12.9 k/uL (3.8-10.6)
[2021-02-28 21:55] LABS: INR 0.9 (<1.2); Prothrombin Time 10.2 sec (9.0-12.0)
[2021-02-28 21:58] LABS: ALT 40 U/L (4-49); AST 40 U/L (17-59); African American GFR (CKD) >90 (>60 ml/min/1.73 sqM); Albumin 3.8 g/dL (3.5-5.0); Alkaline Phosphatase 46 U/L (38-126); Anion Gap 8 mmol/L; Blood Urea Nitrogen 17 mg/dL (9-20); Calcium 9.6 mg/dL (8.4-10.2); Carbon Dioxide 25 mmol/L (22-30); Chloride 100 mmol/L (98-107); Creatine Kinase 404 U/L (55-170); Glucose 110 mg/dL (74-99); Magnesium 1.7 mg/dL (1.6-2.3); Non-African American GFR(CKD) >90 (>60 ml/min/1.73 sqM); Phosphorus 4.2 mg/dL (2.5-4.5); Potassium 4.2 mmol/L (3.5-5.1); Sodium 133 mmol/L (137-145); Total Bilirubin 0.4 mg/dL (0.2-1.3); Total Protein 6.3 g/dL (6.3-8.2)
[2021-02-28] MEDS ORDERED: KETOROLAC 15 MG/ML 1 ML VIAL IVP STA (23:00)
--- NOTE | 2021-03-01 | CT ---
EXAMINATION TYPE: CT abdomen pelvis w con DATE OF EXAM: 02/28/2021 COMPARISON: None HISTORY: vomiting blood, left sided chest pain that radiates to back CT DLP: 2739.5 mGycm Automated exposure control for dose reduction was used. CONTRAST: Performed with IV Contrast, patient injected with 100 mL of Isovue 370. Images obtained from the diaphragm to the floor the pelvis with IV contrast. Lung bases are clear. There is no pleural effusion. Heart size is normal. There is no pericardial eff usion. Stomach is intact. Stomach has normal size and contour. Liver spleen pancreas gallbladder appe ar intact. Bile ducts are not dilated. There is minimal fatty infiltration of the liver. There is no adrenal mass. Kidneys show satisfactory contrast opacification. There is no hydronephrosi s. Ureters are not dilated. Bladder distends smoothly. There is no inguinal hernia. There is no free fluid in the pelvis. There is no mesenteric edema. There is no ascites or free air. There is no bowel obstruction. Appendi x is not seen. There is no sign of thickened appendix. Lumbar vertebra have fairly normal spacing and alignment. Posterior elements are intact. There is no compression fracture. Bony pelvis is intact. Hip joints appear normal. IMPRESSION: Negative CT scan abdomen and pelvis. Minimal fatty infiltration of the liver.
--- NOTE | 2021-03-01 00:07 | CT ---
EXAMINATION TYPE: CT angio chest DATE OF EXAM: 02/28/2021 COMPARISON: None HISTORY: vomiting blood, left sided chest pain that radiates to back CT DLP: 2739.5 mGycm Automated exposure control for dose reduction was used. CONTRAST: Performed with IV Contrast, patient injected with 100 mL of Isovue 370. Images obtained from the thoracic inlet to the diaphragm with IV contrast Isovue 100 mL. There are 3- D post processed images. The lungs are clear of infiltrate. There is no evidence of a pulmonary mass. There is no pleural effu ernesto. There is no pericardial effusion. There is some fatty infiltration of the liver. Heart size is normal. There are no hilar masses. There is no mediastinal adenopathy. Thoracic aorta i s intact. There is no aneurysm or dissection. The ascending aorta measures 3.3 cm. There is no evidence of filling defect in the pulmonary arteries. Thoracic spine is intact. There is no compression fracture. Sternum is intact. There is no evidence o f a rib fracture. I see no evidence of chest wall mass. IMPRESSION: Negative exam. No evidence of pulmonary embolism. I do not see a cause for left side chest pain.
[2021-03-01] MEDS ORDERED: NITROGLYCERIN SL TABS 0.4 MG TAB SUBLINGUAL PRN (00:25)
[2021-03-01] MEDS ORDERED: ASPIRIN 81 MG PO STA (00:25)
[2021-03-01] MEDS ORDERED: MORPHINE SULFATE 4 MG/ML SYRINGE IV PRN (00:25)
[2021-03-01] MEDS: SODIUM CHLORIDE 0.9% 1,000 ML IV SCH ×3 (00:53→21:10)
[2021-03-01] MEDS ORDERED: methocarbamoL 750 MG TAB PO PRN (09:35)
[2021-03-01] MEDS: buPROPion SR 150 MG TABLET.ER PO SCH ×2 (13:31→21:10)
[2021-03-01] MEDS: SUCRALFATE 1 GM TAB PO SCH ×3 (13:31→21:09)
--- NOTE | 2021-03-01 15:55 | P.CRDCN ---
History of Present Illness History of present illness: HISTORY OF PRESENTING ILLNESS Patient is a pleasant 45-year-old male with history of hypertension, muscle spasms, tobacco abuse, marijuana use. He states for the past few months he has been having episodes of chest pain where he will have pain on his left side which is mainly with movement and with turning and positioning. He states he will not be able to move and that the muscle relaxers he has been prescribed have helped. Yesterday however he experienced an episode where he felt nauseous first and threw up with a mild amount of blood and then afterwards felt the chest pain and like he could not take a deep breath and with his heart feeling like it was racing and therefore came to emergency department. His chest pain improved on its own. He had a CTA which showed no PE. Had a CT abdomen and pelvis which showed no significant disease, fatty infiltrate of the liver. He denies any association with exertion. Denies any associated diaphoresis. He was found to have mild leukocytosis with white blood cell count 12.9, sodium 133, creatinine kinase 404, troponins normal 3. EKG showed normal sinus rhythm, no significant ST or T-wave abnormalities. REVIEW OF SYSTEMS At the time of my exam: CONSTITUTIONAL: Denies fever or chills. CARDIOVASCULAR: + chest pain, +shortness of breath, no orthopnea, PND or palpitations. RESPIRATORY: Denies cough. GASTROINTESTINAL: Denies abdominal pain, diarrhea, constipation, nausea or vomiting. MUSCULOSKELETAL: Denies myalgias. NEUROLOGIC: Denies numbness, tingling or weakness. ENDOCRINE: Denies fatigue, weight change, polydipsia or polyurina. GENITOURINARY: Denies burning, hematuria or urgency with micturation. HEMATOLOGIC: Denies history of anemia or bleeding. PHYSICAL EXAMINATION Vital signs reviewed. CONSTITUTIONAL: No apparent distress, obese HEENT: Head is normocephalic. Pupils are equal, round. Sclerae anicteric. Mucous membranes of the mouth are moist. No JVD. No carotid bruit. CHEST EXAMINATION: Lungs are clear to auscultation. No chest wall tenderness is noted on palpation or with deep breathing. HEART EXAMINATION: Regular rate and rhythm. S1, S2 heard. No murmurs, gallops or rub. ABDOMEN: Soft, nontender. Positive bowel sounds. EXTREMITIES: 2+ peripheral pulses, no lower extremity edema and no calf ten derness. NEUROLOGIC EXAMINATION: Patient is awake, alert and oriented x3. ASSESSMENT 1. Atypical reproducible chest pain which appears more musculoskeletal, improved with muscle relaxers 2. Episode of nausea and vomiting 3. Reports of mild blood tinged in his vomit however no sign of GI bleed 4. Essential hypertension 5. Obesity 6. Mildly elevated creatinine kinase, white blood cell, mild hyponatremia PLAN Patient's chest pain appears atypical and is usually improved with muscle relaxers and positioning of his arms and torso and worsened with other movements. It appears his main presentation was related to the nausea and vomiting. His chest pain has been intermittent over the last few months. Troponins normal 3 and EKG unrevealing. Chest pain does not appear cardiac in nature. Discussed discharge with outpatient follow-up and patient is agreeable. May have been a viral etiology of patients nausea vommiting, Past Medical History Past Medical History: Hyperlipidemia, Hypertension Additional Past Medical History / Comment(s): [place] Palsy, back pain History of Any Multi-Drug Resistant Organisms: None Reported Past Surgical History: Appendectomy, Joint Replacement Additional Past Surgical History / Comment(s): L Knee replacement 2019 Past Anesthesia/Blood Transfusion Reactions: No Reported Reaction Past Psychological History: No Psychological Hx Reported Smoking Status: Current every day smoker Past Alcohol Use History: Occasional Past Drug Use History: Marijuana - Past Family History Mother Family Medical History: Cancer Medications and Allergies Home Medications Medication Instructions Recorded Confirmed Type Chlorthalidone 25 mg PO DAILY 04/13/20 02/28/21 History Famotidine 20 mg PO DAILY 04/13/20 02/28/21 History HYDROcodone/APAP 5-325MG [[place] 1 tab PO Q6HR PRN 04/13/20 02/28/21 History 5-325] Methocarbamol [Robaxin-750] 750 mg PO QID PRN 04/13/20 02/28/21 History Sucralfate [Carafate] 1 gm PO QID 04/13/20 02/28/21 History amLODIPine [Norvasc] 10 mg PO DAILY 04/13/20 02/28/21 History buPROPion HCL [Wellbutrin SR] 150 mg PO Q12H 04/13/20 02/28/21 History lisinopriL 40 mg PO DAILY 04/13/20 02/28/21 History Pantoprazole Sodium [Protonix] 40 mg PO DAILY 02/28/21 02/28/21 History Allergies Allergy/AdvReac Type Severity Reaction Status Date / Time No Known Allergies Allergy Verified 02/28/21 23:04 Physical Exam Vitals: Vital Signs Temp Pulse Pulse Resp BP BP Pulse Ox 03/01/21 07:00 97.5 F L 71 15 97/65 97 03/01/21 01:55 57 L 18 03/01/21 01:26 97.6 F 57 L 18 132/87 98 03/01/21 00:26 98 03/01/21 00:10 59 L 18 107/72 97 02/28/21 23:40 70 18 122/80 97 02/28/21 23:10 57 L 18 109/65 98 02/28/21 22:40 62 16 94/67 99 02/28/21 22:10 67 16 119/69 100 02/28/21 21:40 61 19 114/70 100 02/28/21 21:07 98.1 F 72 18 130/60 97 Intake and Output 03/01/21 03/01/21 03/01/21 06:59 14:59 22:59 Intake Total 340 Balance 340 Intake: Oral 340 Other: Voiding Method Toilet Toilet # Voids 2 1 Weight 133.356 kg Results 02/28/21 21:19 02/28/21 21:19 Cardiac Enzymes 02/28/21 02/28/21 03/01/21 Range/Units 21:19 21:19 00:56 AST 40 (17-59) U/L Troponin I <0.012 <0.012 (0.000-0.034) ng/mL 03/01/21 Range/Units 05:10 AST (17-59) U/L Troponin I <0.012 (0.000-0.034) ng/mL Coagulation 02/28/21 Range/Units 21:19 PT 10.2 (9.0-12.0) sec APTT 23.0 (22.0-30.0) sec CBC 02/28/21 Range/Units 21:19 WBC 12.9 H (3.8-10.6) k/uL RBC 5.44 (4.30-5.90) m/uL Hgb 14.8 (13.0-17.5) gm/dL Hct 45.0 (39.0-53.0) % Plt Count 333 (150-450) k/uL Comprehensive Metabolic Panel 02/28/21 Range/Units 21:19 Sodium 133 L (137-145) mmol/L Potassium 4.2 (3.5-5.1) mmol/L Chloride 100 (98-107) mmol/L Carbon Dioxide 25 (22-30) mmol/L BUN 17 (9-20) mg/dL Creatinine 0.85 (0.66-1.25) mg/dL Glucose 110 H (74-99) mg/dL Calcium 9.6 (8.4-10.2) mg/dL AST 40 (17-59) U/L ALT 40 (4-49) U/L Alkaline Phosphatase 46 (38-126) U/L Total Protein 6.3 (6.3-8.2) g/dL Albumin 3.8 (3.5-5.0) g/dL Current Medications Generic Name Dose Route Start Last Admin Trade Name Freq PRN Reason Stop Dose Admin Amlodipine Besylate 10 mg 03/02/21 09:00 Amlodipine 10 Mg Tab PO DAILY [facility] Aspirin 325 mg 03/02/21 09:00 Aspirin 325 Mg Tab PO DAILY [facility] Bupropion HCl 150 mg 03/01/21 09:45 03/01/21 13:31 Bupropion Sr 150 Mg Tablet.Er PO 150 mg Q12HR MARIANNA Administration Chlorthalidone 25 mg 03/02/21 09:00 Chlorthalidone 25 Mg Tab PO DAILY [facility] Famotidine 20 mg 03/02/21 09:00 Famotidine 20 Mg Tab PO DAILY [facility] Sodium Chloride 1,000 mls @ 100 mls/hr 03/01/21 00:30 03/01/21 15:42 Saline 0.9% IV Not Given .Q10H MARIANNA Lisinopril 40 mg 03/02/21 09:00 Lisinopril 20 Mg Tab PO DAILY [facility] Methocarbamol 750 mg 03/01/21 09:35 Methocarbamol 750 Mg Tab PO QID PRN Muscle Spasm Morphine Sulfate 4 mg 03/01/21 00:25 Morphine Sulfate 4 Mg/Ml Syringe IV Q4HR PRN Chest Pain Nitroglycerin 0.4 mg 03/01/21 00:25 Nitroglycerin Sl Tabs 0.4 Mg Tab SUBLINGUAL Q5M PRN Chest Pain Pantoprazole Sodium 40 mg 03/02/21 09:00 Pantoprazole 40 Mg Tablet PO DAILY MARIANNA Sucralfate 1 gm 03/01/21 13:00 03/01/21 13:31 Sucralfate 1 Gm Tab PO 1 gm QID MARIANNA Administration Intake and Output 03/01/21 03/01/21 03/01/21 06:59 14:59 22:59 Intake Total 340 Balance 340 Intake: Oral 340 Other: Voiding Method Toilet Toilet # Voids 2 1 Weight 133.356 kg 02/28/21 21:19 02/28/21 21:19
[2021-03-01 16:26] VITALS: RESP 16
--- NOTE | 2021-03-01 17:07 | HP ---
HISTORY AND PHYSICAL CHIEF COMPLAINT: Chest pain. HISTORY OF PRESENT ILLNESS: This the first admission for this 45-year-old male who is heavy set. He was at work when he developed some left-sided chest pain. There is no history of any trauma. He had no shortness of breath, diaphoresis, radiation of the pain, syncope, etc. In the emergency room his EKG and troponins were unremarkable. He does have a history of hypertension. REVIEW OF SYSTEMS: Review of systems is otherwise unremarkable. He has had no syncope, neurologic problems, pleuritic pain, cough, hemoptysis, sputum production, fever, chills, nausea, vomiting, hematemesis, melena, hematochezia, jaundice, hepatitis, cirrhosis, hematuria, renal failure, nocturia, frequency, urgency. No dysuria, hematuria, incontinence, etc. Past medical history, family history personal and social histories reveal he is on Carafate, lisinopril, Norvasc, bupropion, chlorthalidone, Protonix, Pepcid, methocarbamol, and Vicodin as needed. He does smoke. He drinks occasionally. PHYSICAL EXAMINATION: Blood pressure is 145/86 with a pulse of 69, respirations are 15 and he is afebrile. In general, he appeared to be overweight and in no acute distress. Skin color is normal, skin is warm, dry. Lymph nodes are not enlarged. Head, ears, eyes, nose, mouth and throat were normal and neck veins not distended. Thyroid was not enlarged. Chest was clear. Cardiac exam is normal sinus rhythm and no murmurs or extra sounds. The abdomen was protuberant, soft and nontender without any visceromegaly or masses. Bowel sounds present. Extremities are normal. Neurologically she is intact. She is admitted to the hospital with diagnoses: 1. Left sided chest pain which seems to be chest wall, probably noncardiac. 2. History of hypertension. PLAN: 1. Bedrest. 2. IV fluids. 3. Serial EKGs and enzymes. 4. Consult Cardiology. MMODL / IJN: [id number] /
[2021-03-02 02:13] VITALS: TEMP 98.2
[2021-03-02] MEDS: buPROPion SR 150 MG TABLET.ER PO SCH (07:49)
[2021-03-02] MEDS: SUCRALFATE 1 GM TAB PO SCH (07:49)
[2021-03-02 07:50] VITALS: BP 147/84; PULSE 74
[2021-03-02] MEDS ORDERED: PANTOPRAZOLE 40 MG TABLET PO SCH (09:00)
[2021-03-02] MEDS ORDERED: amLODIPine 10 MG TAB PO SCH (09:00)
[2021-03-02] MEDS ORDERED: CHLORTHALIDONE 25 MG TAB PO SCH (09:00)
[2021-03-02] MEDS ORDERED: ASPIRIN 325 MG TAB PO SCH (09:00)
[2021-03-02] MEDS ORDERED: lisinopriL 20 MG TAB PO SCH (09:00)
[2021-03-02] MEDS ORDERED: FAMOTIDINE 20 MG TAB PO SCH (09:00)
[2021-03-02 10:24] LABS: Chol/HDL Ratio 5.41; LDL Cholesterol,Calculated 103.4 mg/dL (0.0-131.0); VLDL Calculation 24.6 mg/dL (5.00-40.00)
--- NOTE | 2021-03-02 14:22 | DS ---
DISCHARGE SUMMARY CHIEF COMPLAINT: Chest pain. HISTORY OF PRESENT ILLNESS AND PHYSICAL EXAMINATION: Details of this man's history and physical can be found in the initial workup. LABORATORY STUDIES: While he was in the hospital he had laboratory studies, details of which can be found in the laboratory section of his chart. COURSE IN THE HOSPITAL: After admission he was placed on bedrest, started on intravenous fluids and had serial EKGs and enzymes which were normal. He was seen by Cardiology. It was planned that he should have a stress study, but because his pain was chest wall with tenderness on the left and all of his studies were unremarkable, it was felt that he could go home and he will be followed up as an outpatient. He will go home on his usual activity, diet and medication and be followed up in several days. FINAL DIAGNOSES: 1. Left-sided anterior or lateral chest wall pain. 2. History of hypertension. OPERATIONS: None. CONSULTATION: Cardiology. CONDITION: He is improved. MMROCHELLE / FLORIANN: [id number] /
== END 2021-03-02 12:00 | disposition home or self-care (01) ==
LOC: EC 21:06 → 6NMEDSUR 03-01 00:27
PROVIDERS: ADMIT Family Medicine; ATTEND Family Medicine
DX: R07.89 Other chest pain (principal); I10 Essential (primary) hypertension; D72.829 Elevated white blood cell count, unspecified; E66.9 Obesity, unspecified; E78.5 Hyperlipidemia, unspecified; E87.1 Hypo-osmolality and hyponatremia; F17.200 Nicotine dependence, unspecified, uncomplicated; Z79.899 Other long term (current) drug therapy; Z96.652 Presence of left artificial knee joint; Z68.38 Body mass index [BMI] 38.0-38.9, adult
CPT/HCPCS: 96375 ×2; 96361; 96374; 99285; 36415; 93005; 80061; 80053; 82550; 83605; 83735; 84100; 84484 ×2; 85025; 85610; 85730; 71275; 74177; G0378 ×2; J2270; S0106 ×2; J2405; J1885; Q9967

== ENCOUNTER 2021-07-22 19:25 | Observation (INO) | payer OTHER ==
--- NOTE | 2021-07-22 22:35 | ED ---
General Adult HPI <Keerthi Neely - Last Filed: 07/22/21 22:35> <Servando Childress - Last Filed: 07/23/21 01:26> - General Stated complaint: Chest Pain, Muscle Spasms Time Seen by Provider: 07/22/21 22:35 - History of Present Illness Initial comments: 46 year-old male patient presents to the emergency department for evaluation of cellulitis right lower leg and generalized body spasms. States he is having pain, redness, and swelling to the right leg. States his muscles are spasming. States it started about week ago. Has been taking muscle relaxers without relief. Denies chest pain or shortness of breath. He did see his physician yeste rday and was started on antibiotics. He did start them. He does think they are helping. (Keerthi Neely) - Related Data Home Medications Medication Instructions Recorded Confirmed Chlorthalidone 25 mg PO DAILY 04/13/20 02/28/21 Famotidine 20 mg PO DAILY 04/13/20 02/28/21 HYDROcodone/APAP 5-325MG [[place] 1 tab PO Q6HR PRN 04/13/20 02/28/21 5-325] Methocarbamol [Robaxin-750] 750 mg PO QID PRN 04/13/20 02/28/21 Sucralfate [Carafate] 1 gm PO QID 04/13/20 02/28/21 amLODIPine [Norvasc] 10 mg PO DAILY 04/13/20 02/28/21 buPROPion HCL [Wellbutrin SR] 150 mg PO Q12H 04/13/20 02/28/21 lisinopriL 40 mg PO DAILY 04/13/20 02/28/21 Pantoprazole Sodium [Protonix] 40 mg PO DAILY 02/28/21 02/28/21 Previous Rx's Medication Instructions Recorded Aspirin 325 mg PO DAILY #100 tab 03/02/21 Allergies Allergy/AdvReac Type Severity Reaction Status Date / Time No Known Allergies Allergy Verified 07/22/21 22:38 Review of Systems ROS Other: All systems not noted in ROS Statement are negative. <Keerthi Neely - Last Filed: 07/22/21 22:35> ROS Other: All systems not noted in ROS Statement are negative. <Servando Childress - Last Filed: 07/23/21 01:26> ROS Statement: Those systems with pertinent positive or pertinent negative responses have been documented in the HPI. Past Medical History Past Medical History: Hyperlipidemia, Hypertension Additional Past Medical History / Comment(s): [place] Palsy, back pain History of Any Multi-Drug Resistant Organisms: None Reported Past Surgical History: Appendectomy, Joint Replacement Additional Past Surgical History / Comment(s): L Knee replacement 2019 Past Anesthesia/Blood Transfusion Reactions: No Reported Reaction Past Psychological History: No Psychological Hx Reported Smoking Status: Current every day smoker Past Alcohol Use History: Occasional Past Drug Use History: Marijuana - Past Family History Mother Family Medical History: Cancer <Keerthi Neely - Last Filed: 07/22/21 22:35> General Exam General appearance: alert, in no apparent distress, other (This is a well developed, well nourished adult male in no acute distress. ) ENT exam: Present: normal exam, normal oropharynx, mucous membranes moist Respiratory exam: Present: normal lung sounds bilaterally. Absent: respiratory distress, wheezes, rales, rhonchi, stridor Cardiovascular Exam: Present: regular rate, normal rhythm, normal heart sounds. Absent: systolic murmur, diastolic murmur, rubs, gallop, clicks GI/Abdominal exam: Present: soft, normal bowel sounds. Absent: distended, tenderness, guarding, rebound, rigid Extremities exam: Present: full ROM, normal capillary refill, other (Right lower leg swelling, tenderness. No warm or erythema. ). Absent: tenderness, pedal edema, joint swelling, calf tenderness Neurological exam: Present: alert, oriented X3, CN II-XII intact Psychiatric exam: Present: normal affect, normal mood Skin exam: Present: warm, dry, intact, normal color. Absent: rash <Keerthi Neely - Last Filed: 07/22/21 22:35> Course Vital Signs 07/22/21 12 22:35 00:04 Temperature 98.4 F Pulse Rate 63 62 Respiratory 18 18 Rate Blood Pressure 128/74 106/66 O2 Sat by Pulse 97 95 Oximetry Medical Decision Making - Lab Data Result diagrams: 07/22/21 22:54 07/22/21 22:54 <Servando Childress - Last Filed: 07/23/21 01:26> - Lab Data Lab Results 07/22/21 07/22/21 Range/Units 22:54 22:54 WBC 14.0 H (3.8-10.6) k/uL RBC 4.86 (4.30-5.90) m/uL Hgb 12.9 L (13.0-17.5) gm/dL Hct 41.5 (39.0-53.0) % MCV 85.4 (80.0-100.0) fL MCH 26.5 (25.0-35.0) pg MCHC 31.0 (31.0-37.0) g/dL RDW 14.4 (11.5-15.5) % Plt Count 396 (150-450) k/uL MPV 8.1 Neutrophils % 61 % Lymphocytes % 22 % Monocytes % 10 % Eosinophils % 2 % Basophils % 1 % Neutrophils # 8.6 H (1.3-7.7) k/uL Lymphocytes # 3.2 (1.0-4.8) k/uL Monocytes # 1.4 H (0-1.0) k/uL Eosinophils # 0.3 (0-0.7) k/uL Basophils # 0.2 (0-0.2) k/uL Sodium 136 L (137-145) mmol/L Potassium 4.1 (3.5-5.1) mmol/L Chloride 98 (98-107) mmol/L Carbon Dioxide 29 (22-30) mmol/L Anion Gap 9 mmol/L BUN 22 H (9-20) mg/dL Creatinine 1.56 H (0.66-1.25) mg/dL Est GFR (CKD-EPI)AfAm 60 (>60 ml/min/1.73 sqM) Est GFR (CKD-EPI)NonAf 52 (>60 ml/min/1.73 sqM) Glucose 109 H (74-99) mg/dL Calcium 9.5 (8.4-10.2) mg/dL Magnesium 2.0 (1.6-2.3) mg/dL Total Bilirubin 0.3 (0.2-1.3) mg/dL AST 41 (17-59) U/L ALT 51 H (4-49) U/L Alkaline Phosphatase 80 (38-126) U/L Total Protein 7.1 (6.3-8.2) g/dL Albumin 4.0 (3.5-5.0) g/dL Disposition <Keerthi Neely - Last Filed: 07/22/21 22:35> Is patient prescribed a controlled substance at d/c from ED?: No <Servando Childress - Last Filed: 07/23/21 01:26> Clinical Impression: Cellulitis of right leg Disposition: ADMITTED IP TO THIS HOSP Condition: Good Referrals: Baldo Mckeon MD [Primary Care Provider] - 1-2 days
[2021-07-22 23:30] LABS: Basophils # (A) 0.2 k/uL (0-0.2); Basophils % (A) 1 %; Eosinophils # (A) 0.3 k/uL (0-0.7); Eosinophils % (A) 2 %; HCT 41.5 % (39.0-53.0); HGB 12.9 gm/dL (13.0-17.5); Lymphocytes # (A) 3.2 k/uL (1.0-4.8); Lymphocytes % (A) 22 %; MCH 26.5 pg (25.0-35.0); MCV 85.4 fL (80.0-100.0); Mean Platelet Volume 8.1; Monocytes # (A) 1.4 k/uL (0-1.0); Monocytes % (A) 10 %; Neutrophils # (A) 8.6 k/uL (1.3-7.7); Neutrophils % (A) 61 %; Platelet Count 396 k/uL (150-450); RBC 4.86 m/uL (4.30-5.90); RDW 14.4 % (11.5-15.5)
[2021-07-22 23:43] LABS: Calcium 9.5 mg/dL (8.4-10.2); Potassium 4.1 mmol/L (3.5-5.1); Total Bilirubin 0.3 mg/dL (0.2-1.3); Total Protein 7.1 g/dL (6.3-8.2)
[2021-07-23] MEDS ORDERED: NAFCILLIN 2 GM in DEXTROSE 5% IN WATER 100 ML IVPB ONE ×2 (00:30)
--- NOTE | 2021-07-23 01:22 | US ---
EXAMINATION TYPE: US venous doppler duplex LE RT DATE OF EXAM: 07/23/2021 12:54 AM COMPARISON: US CLINICAL HISTORY: leg pain and swelling. Leg pain and swelling. No hx of DVT. SIDE PERFORMED: Right TECHNIQUE: The lower extremity deep venous system is examined utilizing real time linear array sonog jeremy with graded compression, doppler sonography and color-flow sonography. VESSELS IMAGED: Common Femoral Vein Deep Femoral Vein Greater Saphenous Vein * Femoral Vein Popliteal Vein Small Saphenous Vein * Proximal Calf Veins (* superficial vessels) Exam slightly limited due to edema. Right Leg: Hypoechoic area with hyperechoic center seen within the right groin: 2.9 x 2.4 x 1.2 cm. No evidence of DVT in veins imaged at this time. IMPRESSION: No evidence of deep vein thrombosis in the right leg. There is right inguinal lymph node noted.
[2021-07-23] MEDS ORDERED: ACETAMINOPHEN TAB 325 MG TAB PO PRN (01:23)
[2021-07-23] MEDS ORDERED: NALOXONE 0.4 MG/ML 1 ML VIAL IV PRN (01:23)
[2021-07-23] MEDS ORDERED: VANCOMYCIN IV PER PHARMACY 1 EACH MISC MISCELLANE PRN (01:24)
[2021-07-23] MEDS: SODIUM CHLORIDE 0.9% 1,000 ML IV SCH ×2 (01:39→16:03)
[2021-07-23] MEDS ORDERED: VANCOMYCIN 2,000 MG in SODIUM CHLORIDE 0.9% 500 ML 500 ML IVPB ONE (02:00)
[2021-07-23] MEDS: HYDROcodone/APAP 5-325MG 1 EACH TAB PO PRN ×2 (03:43→16:01)
[2021-07-23] MEDS: HEPARIN SODIUM,PORCINE/PF 5,000 UNIT/0.5 ML SYRINGE SQ SCH ×2 (08:04→21:22)
[2021-07-23] MEDS ORDERED: FAMOTIDINE 20 MG TAB PO SCH (09:00)
[2021-07-23] MEDS ORDERED: HYDROcodone/APAP 5-325MG 1 EACH TAB PO PRN (12:02)
[2021-07-23] MEDS ORDERED: NAPROXEN 250 MG TAB PO PRN (12:02)
[2021-07-23] MEDS ORDERED: VANCOMYCIN 1,750 MG in SODIUM CHLORIDE 0.9% 500 ML 500 ML IVPB SCH (15:00)
[2021-07-23] MEDS: VANCOMYCIN 2,250 MG in SODIUM CHLORIDE 0.9% 500 ML 500 ML IVPB SCH (16:02)
[2021-07-24] MEDS: VANCOMYCIN 2,250 MG in SODIUM CHLORIDE 0.9% 500 ML 500 ML IVPB SCH ×2 (03:11→15:29)
[2021-07-24] MEDS: HYDROcodone/APAP 5-325MG 1 EACH TAB PO PRN ×3 (04:58→21:06)
[2021-07-24 06:10] LABS: African American GFR (CKD) >90 (>60 ml/min/1.73 sqM); Anion Gap 5 mmol/L; Blood Urea Nitrogen 15 mg/dL (9-20); Calcium 8.9 mg/dL (8.4-10.2); Carbon Dioxide 32 mmol/L (22-30); Chloride 100 mmol/L (98-107); Glucose 149 mg/dL (74-99); Non-African American GFR(CKD) >90 (>60 ml/min/1.73 sqM); Potassium 4.4 mmol/L (3.5-5.1); Sodium 137 mmol/L (137-145)
[2021-07-24] MEDS: SODIUM CHLORIDE 0.9% 1,000 ML IV SCH ×2 (06:23→19:45)
[2021-07-24] MEDS: FAMOTIDINE 20 MG TAB PO SCH (07:35)
[2021-07-24] MEDS: amLODIPine 10 MG TAB PO SCH (07:35)
[2021-07-24] MEDS: lisinopriL 20 MG TAB PO SCH (07:35)
[2021-07-24] MEDS: HEPARIN SODIUM,PORCINE/PF 5,000 UNIT/0.5 ML SYRINGE SQ SCH ×2 (07:35→20:24)
[2021-07-24] MEDS: PANTOPRAZOLE 40 MG TABLET PO SCH (07:35)
[2021-07-24] MEDS: FUROSEMIDE 40 MG TAB PO SCH (07:35)
[2021-07-24 11:03] LABS: Basophils # (A) 0.1 k/uL (0-0.2); Basophils % (A) 1 %; Eosinophils # (A) 0.3 k/uL (0-0.7); Eosinophils % (A) 3 %; HCT 41.7 % (39.0-53.0); HGB 12.4 gm/dL (13.0-17.5); Hypochromasia Marked; Lymphocytes # (A) 3.4 k/uL (1.0-4.8); Lymphocytes % (A) 38 %; MCH 26.6 pg (25.0-35.0); MCHC 29.8 g/dL (31.0-37.0); MCV 89.5 fL (80.0-100.0); Mean Platelet Volume 8.7; Monocytes % (A) 11 %; Neutrophils # (A) 3.8 k/uL (1.3-7.7); Neutrophils % (A) 43 %; Platelet Count 404 k/uL (150-450); RBC 4.66 m/uL (4.30-5.90); RDW 14.8 % (11.5-15.5); WBC 8.8 k/uL (3.8-10.6)
--- NOTE | 2021-07-24 18:34 | HP ---
HISTORY AND PHYSICAL CHIEF COMPLAINT: Pain and cellulitis in the right lower extremity. HISTORY OF PRESENT ILLNESS: This is another admission for this 46-year-old obese -[place] Citizen male. He has had problems with recurrent episodes of cellulitis in the right lower leg and this became exacerbated. He came to the emergency room. REVIEW OF SYSTEMS: He has had some chills. He has had no vomiting, shortness of breath, chest pain, abdominal pain, etc. Past medical history, family history, and personal and social histories are otherwise unremarkable or noncontributory. PHYSICAL EXAMINATION: Blood pressure is 142/90 with a pulse of 88, respirations of 30. He is afebrile. In general he appeared to be overweight and in no acute distress. Skin color is normal. Skin is warm and dry. Head, ears, eyes, nose, mouth and throat are normal. Neck veins are not distended. The chest is clear. The cardiac exam is normal. The abdomen is protuberant, soft and nontender. Extremities are normal. Neurologically he is intact. He has cellulitis in the right lower leg with edema. IMPRESSION: Venostasis disease of the right lower extremity with cellulitis. PLAN: IV fluids and IV antibiotics with elevation. MMODL / IJN: [id number] /
--- NOTE | 2021-07-24 18:49 | PN ---
PROGRESS NOTE DATE OF SERVICE: 07/24/2021 CHIEF COMPLAINT: Cellulitis of the right lower leg. HISTORY OF PRESENT ILLNESS: This gentleman's leg is better. It is less erythematous and less edematous. It is still quite painful to the touch and hurts when it is placed in a dependent position. Otherwise he is doing well. REVIEW OF SYSTEMS: Unremarkable otherwise. PHYSICAL EXAMINATION: Chest is clear. The cardiac exam is normal. The abdomen is soft and nontender. The leg is improving with less edema, erythema and tenderness. IMPRESSION: Cellulitis of the right leg. PLAN: Continue with IV antibiotics for another day or two. MMODL / IJN: [id number] /
[2021-07-25] MEDS: VANCOMYCIN 2,250 MG in SODIUM CHLORIDE 0.9% 500 ML 500 ML IVPB SCH (02:53)
[2021-07-25] MEDS: SODIUM CHLORIDE 0.9% 1,000 ML IV SCH (06:12)
[2021-07-25] MEDS: PANTOPRAZOLE 40 MG TABLET PO SCH (08:36)
[2021-07-25] MEDS: FAMOTIDINE 20 MG TAB PO SCH (08:36)
[2021-07-25] MEDS: amLODIPine 10 MG TAB PO SCH (08:36)
[2021-07-25] MEDS: FUROSEMIDE 40 MG TAB PO SCH (08:36)
[2021-07-25] MEDS: lisinopriL 20 MG TAB PO SCH (08:36)
[2021-07-25] MEDS: HEPARIN SODIUM,PORCINE/PF 5,000 UNIT/0.5 ML SYRINGE SQ SCH (08:37)
[2021-07-25 11:37] VITALS: BP 124/70; PULSE 66; RESP 20; TEMP 98.6
[2021-07-25] MEDS ORDERED: VANCOMYCIN TROUGH DUE 1 EACH MISC MISCELLANE ONE (14:00)
[2021-07-25 14:29] LABS: African American GFR (CKD) >90 (>60 ml/min/1.73 sqM); Non-African American GFR(CKD) >90 (>60 ml/min/1.73 sqM)
--- NOTE | 2021-07-25 19:56 | DS ---
DISCHARGE SUMMARY DATE OF DISCHARGE: 07/25/2021 CHIEF COMPLAINT: Cellulitis of the right lower leg. HISTORY OF PRESENT ILLNESS AND PHYSICAL EXAMINATION: Details of this man's history and physical can be found in the initial workup. LABORATORY STUDIES: While he was in the hospital he had laboratory studies, details of which can be found in the laboratory section of his chart. COURSE IN THE HOSPITAL: After admission he was placed on bedrest, started on intravenous fluids and IV antibiotics. The redness, swelling and tenderness slowly subsided and the leg was almost back to normal on 07/25 and it was felt that he could go home. He will go home on his usual activity, diet and medications and will continue Keflex 500 mg q.i.d. He will be seen in the office in 2 or 3 days. FINAL DIAGNOSIS: 1. Cellulitis of the right lower leg. 2. Hypertension. OPERATIONS: None. CONSULTATIONS: None. He is improved. MMROCHELLE / FLORIANN: [id number] /
== END 2021-07-25 16:30 | disposition home or self-care (01) ==
LOC: EC 19:25 → INTOOBSV 07-23 01:23 → OBSVTOIN 07-23 01:23 → 6NMEDSUR 07-23 01:23 → 5NMEDONC 07-23 02:51 → OBSVTOIN 07-25 09:20 → INTOOBSV 07-25 09:20 → UNDODISIN 07-25 16:30
PROVIDERS: ADMIT Family Medicine; ATTEND Family Medicine
DX: L03.115 Cellulitis of right lower limb (principal); Z68.41 Body mass index [BMI] 40.0-44.9, adult; R07.9 Chest pain, unspecified; M62.838 Other muscle spasm; I10 Essential (primary) hypertension; F17.210 Nicotine dependence, cigarettes, uncomplicated; M54.9 Dorsalgia, unspecified; Z20.822 Contact with and (suspected) exposure to COVID-19; I87.8 Other specified disorders of veins; E66.9 Obesity, unspecified; E78.5 Hyperlipidemia, unspecified; G51.0 Bell's palsy; Z79.82 Long term (current) use of aspirin; Z96.652 Presence of left artificial knee joint; Z79.899 Other long term (current) drug therapy; Z80.9 Family history of malignant neoplasm, unspecified
CPT/HCPCS: 99284; 96361 ×2; 96366 ×4; 96367; 96372 ×4; 96365; 36415 ×2; 80053; 80048; 82565; 83735; 85025 ×2; 80202; 87040; 87635; 93971; G0378 ×3; J3370 ×3; J0690 ×3; J1644 ×3; 93005; 99285

== ENCOUNTER 2021-11-09 17:39 | Emergency (ER) | payer OTHER ==
[2021-11-09 17:48] VITALS: TEMP 98.3
[2021-11-09 18:16] LABS: Basophils # (A) 0.1 k/uL (0-0.2); Basophils % (A) 1 %; Eosinophils # (A) 0.2 k/uL (0-0.7); Eosinophils % (A) 2 %; HCT 39.6 % (39.0-53.0); HGB 11.9 gm/dL (13.0-17.5); Hypochromasia Slight; Lymphocytes # (A) 2.8 k/uL (1.0-4.8); Lymphocytes % (A) 25 %; MCH 25.3 pg (25.0-35.0); MCHC 30.2 g/dL (31.0-37.0); MCV 83.7 fL (80.0-100.0); Mean Platelet Volume 7.5; Monocytes # (A) 0.8 k/uL (0-1.0); Monocytes % (A) 7 %; Neutrophils % (A) 63 %; Platelet Count 323 k/uL (150-450); RBC 4.73 m/uL (4.30-5.90); RDW 15.6 % (11.5-15.5); WBC 11.2 k/uL (3.8-10.6)
[2021-11-09 18:28] LABS: ALT 50 U/L (4-49); AST 45 U/L (17-59); African American GFR (CKD) >90 (>60 ml/min/1.73 sqM); Alkaline Phosphatase 65 U/L (38-126); Anion Gap 7 mmol/L; Blood Urea Nitrogen 10 mg/dL (9-20); Carbon Dioxide 29 mmol/L (22-30); Chloride 99 mmol/L (98-107); Glucose 185 mg/dL (74-99); Non-African American GFR(CKD) >90 (>60 ml/min/1.73 sqM); Potassium 4.6 mmol/L (3.5-5.1); Sodium 135 mmol/L (137-145); Total Bilirubin 0.4 mg/dL (0.2-1.3); Total Protein 6.8 g/dL (6.3-8.2)
[2021-11-09 19:38] VITALS: RESP 18
--- NOTE | 2021-11-09 19:52 | ED ---
Extremity Problem HPI - General Chief complaint: Extremity Problem,Nontraumatic Stated complaint: Leg swelling/pain,SOB Time Seen by Provider: 11/09/21 19:25 Source: patient, RN notes reviewed, old records reviewed Mode of arrival: ambulatory Limitations: no limitations - History of Present Illness Initial comments: 46-year-old male presents today emergency Department with complaints of bilateral lower extremity swelling and feeling shortness of breath and complains of spasming in his back and arm. She reports she's been having the symptoms for the past 2 months. He states that he went to a concert last night but could not enjoy because of the back spasming. He stated that due to this he decided to come to the ER tonight. Denies any fall or trauma. He states that he also concerned with the leg swelling. He reports that in the past he was admitted for cellulitis versus lower 70s. He has not been on recent antibiotics. He states that he was previously taking water pills but has not been taking them as of recently. He denies any fevers or chills. - Related Data Home Medications Medication Instructions Recorded Confirmed Famotidine 20 mg PO DAILY 04/13/20 07/23/21 HYDROcodone/APAP 5-325MG [[place] 1 tab PO Q6H PRN 04/13/20 07/23/21 5-325] Methocarbamol [Robaxin-750] 750 mg PO QID PRN 04/13/20 07/23/21 amLODIPine [Norvasc] 10 mg PO DAILY 04/13/20 07/23/21 lisinopriL 40 mg PO DAILY 04/13/20 07/23/21 Pantoprazole Sodium [Protonix] 40 mg PO DAILY 02/28/21 07/23/21 Atorvastatin [Lipitor] 40 mg PO DAILY 07/23/21 07/23/21 Cephalexin [Keflex] 500 mg PO QID 07/23/21 07/23/21 Furosemide [Lasix] 40 mg PO DAILY 07/23/21 07/23/21 Naproxen 500 mg PO Q12H PRN 07/23/21 07/23/21 Previous Rx's Medication Instructions Recorded Cephalexin [Keflex] 500 mg PO Q6HR 10 Days #40 cap 11/09/21 Furosemide [Lasix] 20 mg PO DAILY #7 tab 11/09/21 Allergies Allergy/AdvReac Type Severity Reaction Status Date / Time No Known Allergies Allergy Verified 11/09/21 17:48 Review of Systems ROS Statement: Those systems with pertinent positive or pertinent negative responses have been documented in the HPI. ROS Other: All systems not noted in ROS Statement are negative. Past Medical History Past Medical History: Hyperlipidemia, Hypertension Additional Past Medical History / Comment(s): [place] Palsy, back pain History of Any Multi-Drug Resistant Organisms: None Reported Past Surgical History: Appendectomy, Joint Replacement Additional Past Surgical History / Comment(s): L Knee replacement 2019 Past Anesthesia/Blood Transfusion Reactions: No Reported Reaction Past Psychological History: No Psychological Hx Reported Smoking Status: Current every day smoker Past Alcohol Use History: Occasional Past Drug Use History: Marijuana - Past Family History Mother Family Medical History: Cancer General Exam - General Exam Comments Initial Comments: 46 year old male. Limitations: no limitations General appearance: alert, in no apparent distress Head exam: Present: atraumatic, normocephalic, normal inspection Eye exam: Present: normal appearance, PERRL, EOMI. Absent: scleral icterus, conjunctival injection, periorbital swelling ENT exam: Present: normal exam, mucous membranes moist Neck exam: Present: normal inspection. Absent: tenderness, meningismus, lymphadenopathy Respiratory exam: Present: normal lung sounds bilaterally, other (Patient has tenderness all Patient over the left and right thoracic paraspinal muscles). Absent: respiratory distress, wheezes, rales, rhonchi, stridor Cardiovascular Exam: Present: regular rate, normal rhythm, normal heart sounds. Absent: systolic murmur, diastolic murmur, rubs, gallop, clicks GI/Abdominal exam: Present: soft, normal bowel sounds. Absent: distended, tenderness, guarding, rebound, rigid Extremities exam: Present: normal inspection, full ROM, normal capillary refill, pedal edema (Bilateral 3+ pedal edema. Patient has shiny lower external skin consistent with venous insufficiency. Slight erythema noted to the left and right anterior kramer.). Absent: tenderness, joint swelling, calf tenderness Back exam: Present: normal inspection, full ROM Neurological exam: Present: alert, oriented X3, CN II-XII intact Psychiatric exam: Present: normal affect, normal mood Skin exam: Present: warm, dry, intact, normal color. Absent: rash Course Vital Signs 11/09/21 11/09/21 11/09/21 17:46 19:29 21:42 Temperature 98.3 F Pulse Rate 88 87 93 Respiratory 20 18 18 Rate Blood Pressure 162/92 179/90 137/69 O2 Sat by Pulse 96 97 98 Oximetry Medical Decision Making - Medical Decision Making 46-year-old male presents with 2 months of chronic leg swelling as well as intermittent back spasming and states that he is taken his prescription muscle relaxers. Patient does have evidence of bilateral peripheral edema. BNP was within normal limits. Lab work was reviewed and unremarkable, besides signs elevated glucose. Patient is advised that he needs to resume taking a diuretic. I also discussed Patient needs to keep his feet elevated and the use of compression stockings. Due to the slight erythema leg and advised to start the Patient on antibiotics treat for bilateral kramer minor cellulitis. Discussed if this worsens that he can return, but needs follow-up with his primary care physician. Patient was given IM Norflex for back spasm. - Lab Data Result diagrams: 11/09/21 17:51 11/09/21 17:51 Lab Results 11/09/21 11/09/21 11/09/21 Range/Units 17:51 17:51 17:55 WBC 11.2 H (3.8-10.6) k/uL RBC 4.73 (4.30-5.90) m/uL Hgb 11.9 L (13.0-17.5) gm/dL Hct 39.6 (39.0-53.0) % MCV 83.7 (80.0-100.0) fL MCH 25.3 (25.0-35.0) pg MCHC 30.2 L (31.0-37.0) g/dL RDW 15.6 H (11.5-15.5) % Plt Count 323 (150-450) k/uL MPV 7.5 Neutrophils % 63 % Lymphocytes % 25 % Monocytes % 7 % Eosinophils % 2 % Basophils % 1 % Neutrophils # 7.0 (1.3-7.7) k/uL Lymphocytes # 2.8 (1.0-4.8) k/uL Monocytes # 0.8 (0-1.0) k/uL Eosinophils # 0.2 (0-0.7) k/uL Basophils # 0.1 (0-0.2) k/uL Hypochromasia Slight Sodium 135 L (137-145) mmol/L Potassium 4.6 (3.5-5.1) mmol/L Chloride 99 (98-107) mmol/L Carbon Dioxide 29 (22-30) mmol/L Anion Gap 7 mmol/L BUN 10 (9-20) mg/dL Creatinine 0.78 (0.66-1.25) mg/dL Est GFR (CKD-EPI)AfAm >90 (>60 ml/min/1.73 sqM) Est GFR (CKD-EPI)NonAf >90 (>60 ml/min/1.73 sqM) Glucose 185 H (74-99) mg/dL Calcium 9.0 (8.4-10.2) mg/dL Total Bilirubin 0.4 (0.2-1.3) mg/dL AST 45 (17-59) U/L ALT 50 H (4-49) U/L Alkaline Phosphatase 65 (38-126) U/L NT-Pro-B Natriuret Pep 46 pg/mL Total Protein 6.8 (6.3-8.2) g/dL Albumin 4.0 (3.5-5.0) g/dL 11/09/21 19:51 EKG shows normal sinus rhythm possible left atrial enlargement. Nonspecific T- wave abnormality. Borderline EKG. Ventricular rate of 81 bpm. Intervals 156 no seconds. Your assertion is 94 ms. QT QTc is 356/[address] elevation. - Radiology Data Radiology results: report reviewed Normal chest x-ray. Disposition Clinical Impression: Peripheral edema, Cellulitis, leg, Back spasm Disposition: HOME SELF-CARE Condition: Good Instructions (If sedation given, give patient instructions): Peripheral Vascular Disease (ED) Additional Instructions: Patient advised to follow-up with primary care doctor in the next 1-2 days. Take the HCTZ and antibiotic as prescribed. Patient should try to keep legs elevated above the heart and use compression stockings. Prescriptions: Cephalexin [Keflex] 500 mg PO Q6HR 10 Days #40 cap Furosemide [Lasix] 20 mg PO DAILY #7 tab Is patient prescribed a controlled substance at d/c from ED?: No Referrals: Baldo Mkceon MD [Primary Care Provider] - 1-2 days Time of Disposition: 20:38
--- NOTE | 2021-11-09 19:59 | XR ---
EXAMINATION TYPE: XR chest 2V DATE OF EXAM: 11/09/2021 COMPARISON: NONE HISTORY: Short of breath TECHNIQUE: 2 views FINDINGS: Heart and mediastinum are normal. Lungs are clear. Diaphragm is normal. Bony thorax appears normal. IMPRESSION: Normal chest
[2021-11-09] MEDS ORDERED: cefTRIAXone 1,000 MG VIAL (IM USE) IM STA (20:08)
[2021-11-09] MEDS ORDERED: FUROSEMIDE 40 MG TAB PO STA (20:08)
[2021-11-09] MEDS ORDERED: ORPHENADRINE 30 MG/ML 2 ML VIAL IM STA (20:38)
[2021-11-09 21:48] VITALS: BP 137/69; PULSE 93
== END 2021-11-09 21:50 | disposition home or self-care (01) ==
LOC: EC 17:39
DX: R60.0 Localized edema (principal); L03.116 Cellulitis of left lower limb; L03.115 Cellulitis of right lower limb; M62.830 Muscle spasm of back; E78.5 Hyperlipidemia, unspecified; I10 Essential (primary) hypertension; F17.200 Nicotine dependence, unspecified, uncomplicated; F12.90 Cannabis use, unspecified, uncomplicated; Z90.49 Acquired absence of other specified parts of digestive tract; Z96.652 Presence of left artificial knee joint
CPT/HCPCS: 99285; 96372 ×2; 36415; 93005; 83880; 80053; 85025; 71046; J2360; J0696

== ENCOUNTER 2021-11-10 09:34 | Emergency (ER) | payer OTHER ==
[2021-11-10 09:40] VITALS: TEMP 98.3
[2021-11-10 10:57] LABS: Basophils # (A) 0.1 k/uL (0-0.2); Basophils % (A) 1 %; Eosinophils # (A) 0.3 k/uL (0-0.7); Eosinophils % (A) 2 %; HCT 41.1 % (39.0-53.0); HGB 12.5 gm/dL (13.0-17.5); Hypochromasia Slight; Lymphocytes # (A) 3.2 k/uL (1.0-4.8); Lymphocytes % (A) 26 %; MCH 25.2 pg (25.0-35.0); MCHC 30.4 g/dL (31.0-37.0); MCV 82.9 fL (80.0-100.0); Monocytes # (A) 1.1 k/uL (0-1.0); Monocytes % (A) 9 %; Neutrophils # (A) 7.4 k/uL (1.3-7.7); Neutrophils % (A) 60 %; Platelet Count 353 k/uL (150-450); RBC 4.96 m/uL (4.30-5.90); RDW 15.6 % (11.5-15.5); WBC 12.3 k/uL (3.8-10.6)
[2021-11-10 11:08] LABS: Appearance,Urine Clear (Clear); Bilirubin,Urine Negative (Negative); Blood,Urine Negative (Negative); Color,Urine Light Yellow; Glucose,Urine (UA) Negative (Negative); Ketones,Urine Negative (Negative); Leukocyte Esterase,Urine Negative (Negative); Nitrite,Urine Negative (Negative); Protein,Urine Trace (Negative); Specific Gravity,Urine 1.017 (1.001-1.035); Urobilinogen,Urine <2.0 mg/dL (<2.0)
[2021-11-10 11:08] LABS: ALT 60 U/L (4-49); AST 54 U/L (17-59); African American GFR (CKD) >90 (>60 ml/min/1.73 sqM); Albumin 4.4 g/dL (3.5-5.0); Alkaline Phosphatase 65 U/L (38-126); Amylase 69 U/L (30-110); Anion Gap 7 mmol/L; Blood Urea Nitrogen 14 mg/dL (9-20); Calcium 9.1 mg/dL (8.4-10.2); Carbon Dioxide 32 mmol/L (22-30); Chloride 97 mmol/L (98-107); Glucose 153 mg/dL (74-99); Lipase 93 U/L (23-300); Non-African American GFR(CKD) >90 (>60 ml/min/1.73 sqM); Potassium 4.5 mmol/L (3.5-5.1); Sodium 136 mmol/L (137-145); Total Bilirubin 0.5 mg/dL (0.2-1.3); Total Protein 7.6 g/dL (6.3-8.2)
[2021-11-10 11:21] LABS: Amphetamine Screen,Urine Not Detected (NotDetected); Barbiturate Screen,Urine Not Detected (NotDetected); Benzodiazepines Screen,Urine Not Detected (NotDetected); Cocaine Screen,Urine Detected (NotDetected); Methadone Screen, Urine Not Detected (NotDetected); Opiate Screen,Urine Not Detected (NotDetected); Oxycodone Screen, Urine Not Detected (NotDetected); Phencyclidine Screen,Urine Not Detected (NotDetected); Tricyclic Antidepressant,Urine Not Detected (NotDetected); Urn Cannabinoid Scrn Detected (NotDetected)
--- NOTE | 2021-11-10 11:49 | ED ---
General Adult HPI - General Chief complaint: Abdominal Pain Stated complaint: abd pain Time Seen by Provider: 11/10/21 09:37 Source: patient, EMS, RN notes reviewed Mode of arrival: EMS Limitations: no limitations - History of Present Illness Initial comments: This is 46-year-old male presents emergency Department via EMS chief complaint of leg pain, cramping, abdominal pain. Patient was seen here should for similar complaints. Patient for workup which was negative. Patient denies any chest pain or shortness breath. Patient states that this is an ongoing issue. Patient does see his primary care physician for it and states been given [place] muscle relaxers. Patient denies any chest pain or palpitations no localized abdominal pain states he has abdominal cramping. - Related Data Home Medications Medication Instructions Recorded Confirmed HYDROcodone/APAP 5-325MG [[place] 1 tab PO Q6H PRN 04/13/20 11/10/21 5-325] Methocarbamol [Robaxin-750] 750 mg PO QID PRN 04/13/20 11/10/21 lisinopriL 40 mg PO DAILY 04/13/20 11/10/21 Pantoprazole Sodium [Protonix] 40 mg PO DAILY 02/28/21 11/10/21 Furosemide [Lasix] 40 mg PO DAILY 07/23/21 11/10/21 hydrALAZINE HCL [Apresoline] 50 mg PO BID 11/10/21 11/10/21 Previous Rx's Medication Instructions Recorded Cephalexin [Keflex] 500 mg PO Q6HR 10 Days #40 cap 11/09/21 Furosemide [Lasix] 20 mg PO DAILY #7 tab 11/09/21 Allergies Allergy/AdvReac Type Severity Reaction Status Date / Time atorvastatin [From Lipitor] AdvReac muscle Verified 11/10/21 10:33 spasms Review of Systems ROS Statement: Those systems with pertinent positive or pertinent negative responses have been documented in the HPI. ROS Other: All systems not noted in ROS Statement are negative. Past Medical History Past Medical History: Hyperlipidemia, Hypertension Additional Past Medical History / Comment(s): [place] Palsy, back pain History of Any Multi-Drug Resistant Organisms: None Reported Past Surgical History: Appendectomy, Joint Replacement Additional Past Surgical History / Comment(s): L Knee replacement 2019 Past Anesthesia/Blood Transfusion Reactions: No Reported Reaction Past Psychological History: No Psychological Hx Reported Smoking Status: Current every day smoker Past Alcohol Use History: Occasional Past Drug Use History: Marijuana - Past Family History Mother Family Medical History: Cancer General Exam Limitations: no limitations General appearance: alert, in no apparent distress Head exam: Present: atraumatic, normocephalic, normal inspection Eye exam: Present: normal appearance, PERRL, EOMI. Absent: scleral icterus, conjunctival injection, periorbital swelling ENT exam: Present: normal exam, normal oropharynx, mucous membranes moist Neck exam: Present: normal inspection, full ROM. Absent: tenderness, meningismus, lymphadenopathy Respiratory exam: Present: normal lung sounds bilaterally. Absent: respiratory distress, wheezes, rales, rhonchi, stridor Cardiovascular Exam: Present: regular rate, normal rhythm, normal heart sounds. Absent: systolic murmur, diastolic murmur, rubs, gallop, clicks GI/Abdominal exam: Present: soft, normal bowel sounds. Absent: distended, tenderness, guarding, rebound, rigid Extremities exam: Present: normal capillary refill, pedal edema (Minimal), calf tenderness, other (Equal pulses bilaterally) Neurological exam: Present: alert, oriented X3 Skin exam: Present: warm, dry, intact, normal color. Absent: rash Course Vital Signs 11/10/21 11/10/21 11/10/21 09:35 09:40 10:40 Temperature 98.3 F Pulse Rate 79 87 Respiratory 16 Rate Blood Pressure 147/87 166/87 O2 Sat by Pulse 98 93 L Oximetry - Reevaluation(s) Reevaluation #1: 11/10/21 11:48 Patient was evaluated several times in the room is patient had excessive snoring, patient was sleeping throughout his ER visit no signs distress. Medical Decision Making - Medical Decision Making 46-year-old male presented for leg pain and swelling cramping. Patient has no change in lamps, pulses equal bilaterally does have cocaine on board which may be complicating issue. Patient is a 48 [place] but has no opiates on system. Patient advised to discontinue drug abuse, patient advised to wear compression stockings return for worsening changes symptoms. - Lab Data Result diagrams: 11/10/21 09:53 11/10/21 09:53 Lab Results 11/10/21 11/10/21 11/10/21 Range/Units 09:53 09:53 09:53 WBC 12.3 H (3.8-10.6) k/uL RBC 4.96 (4.30-5.90) m/uL Hgb 12.5 L (13.0-17.5) gm/dL Hct 41.1 (39.0-53.0) % MCV 82.9 (80.0-100.0) fL MCH 25.2 (25.0-35.0) pg MCHC 30.4 L (31.0-37.0) g/dL RDW 15.6 H (11.5-15.5) % Plt Count 353 (150-450) k/uL MPV 8.0 Neutrophils % 60 % Lymphocytes % 26 % Monocytes % 9 % Eosinophils % 2 % Basophils % 1 % Neutrophils # 7.4 (1.3-7.7) k/uL Lymphocytes # 3.2 (1.0-4.8) k/uL Monocytes # 1.1 H (0-1.0) k/uL Eosinophils # 0.3 (0-0.7) k/uL Basophils # 0.1 (0-0.2) k/uL Hypochromasia Slight Sodium 136 L (137-145) mmol/L Potassium 4.5 (3.5-5.1) mmol/L Chloride 97 L (98-107) mmol/L Carbon Dioxide 32 H (22-30) mmol/L Anion Gap 7 mmol/L BUN 14 (9-20) mg/dL Creatinine 0.98 (0.66-1.25) mg/dL Est GFR (CKD-EPI)AfAm >90 (>60 ml/min/1.73 sqM) Est GFR (CKD-EPI)NonAf >90 (>60 ml/min/1.73 sqM) Glucose 153 H (74-99) mg/dL Plasma Lactic Acid Herve 1.0 (0.7-2.0) mmol/L Calcium 9.1 (8.4-10.2) mg/dL Total Bilirubin 0.5 (0.2-1.3) mg/dL AST 54 (17-59) U/L ALT 60 H (4-49) U/L Alkaline Phosphatase 65 (38-126) U/L Total Protein 7.6 (6.3-8.2) g/dL Albumin 4.4 (3.5-5.0) g/dL Amylase 69 (30-110) U/L Lipase 93 (23-300) U/L Urine Color Urine Appearance (Clear) Urine pH (5.0-8.0) Ur Specific [place] (1.001-1.035) Urine Protein (Negative) Urine Glucose (UA) (Negative) Urine Ketones (Negative) Urine Blood (Negative) Urine Nitrite (Negative) Urine Bilirubin (Negative) Urine Urobilinogen (<2.0) mg/dL Ur Leukocyte Esterase (Negative) Urine Opiates Screen (NotDetected) Ur Oxycodone Screen (NotDetected) Urine Methadone Screen (NotDetected) Ur Propoxyphene Screen (NotDetected) Ur Barbiturates Screen (NotDetected) U Tricyclic Antidepress (NotDetected) Ur Phencyclidine Scrn (NotDetected) Ur Amphetamines Screen (NotDetected) U Methamphetamines Scrn (NotDetected) U Benzodiazepines Scrn (NotDetected) Urine Cocaine Screen (NotDetected) U Marijuana (THC) Screen (NotDetected) 11/10/21 Range/Units 10:25 WBC (3.8-10.6) k/uL RBC (4.30-5.90) m/uL Hgb (13.0-17.5) gm/dL Hct (39.0-53.0) % MCV (80.0-100.0) fL MCH (25.0-35.0) pg MCHC (31.0-37.0) g/dL RDW (11.5-15.5) % Plt Count (150-450) k/uL MPV Neutrophils % % Lymphocytes % % Monocytes % % Eosinophils % % Basophils % % Neutrophils # (1.3-7.7) k/uL Lymphocytes # (1.0-4.8) k/uL Monocytes # (0-1.0) k/uL Eosinophils # (0-0.7) k/uL Basophils # (0-0.2) k/uL Hypochromasia Sodium (137-145) mmol/L Potassium (3.5-5.1) mmol/L Chloride (98-107) mmol/L Carbon Dioxide (22-30) mmol/L Anion Gap mmol/L BUN (9-20) mg/dL Creatinine (0.66-1.25) mg/dL Est GFR (CKD-EPI)AfAm (>60 ml/min/1.73 sqM) Est GFR (CKD-EPI)NonAf (>60 ml/min/1.73 sqM) Glucose (74-99) mg/dL Plasma Lactic Acid Herve (0.7-2.0) mmol/L Calcium (8.4-10.2) mg/dL Total Bilirubin (0.2-1.3) mg/dL AST (17-59) U/L ALT (4-49) U/L Alkaline Phosphatase (38-126) U/L Total Protein (6.3-8.2) g/dL Albumin (3.5-5.0) g/dL Amylase (30-110) U/L Lipase (23-300) U/L Urine Color Light Yellow Urine Appearance Clear (Clear) Urine pH 8.0 (5.0-8.0) Ur Specific [place] 1.017 (1.001-1.035) Urine Protein Trace H (Negative) Urine Glucose (UA) Negative (Negative) Urine Ketones Negative (Negative) Urine Blood Negative (Negative) Urine Nitrite Negative (Negative) Urine Bilirubin Negative (Negative) Urine Urobilinogen <2.0 (<2.0) mg/dL Ur Leukocyte Esterase Negative (Negative) Urine Opiates Screen Not Detected (NotDetected) Ur Oxycodone Screen Not Detected (NotDetected) Urine Methadone Screen Not Detected (NotDetected) Ur Propoxyphene Screen Not Detected (NotDetected) Ur Barbiturates Screen Not Detected (NotDetected) U Tricyclic Antidepress Not Detected (NotDetected) Ur Phencyclidine Scrn Not Detected (NotDetected) Ur Amphetamines Screen Not Detected (NotDetected) U Methamphetamines Scrn Not Detected (NotDetected) U Benzodiazepines Scrn Not Detected (NotDetected) Urine Cocaine Screen Detected H (NotDetected) U Marijuana (THC) Screen Detected H (NotDetected) Disposition Clinical Impression: Peripheral edema, Leg edema Disposition: HOME SELF-CARE Condition: Stable Instructions (If sedation given, give patient instructions): Leg Edema (ED) Additional Instructions: Please were stockings as directed.Please return to the Emergency Department if symptoms worsen or any other concerns. Is patient prescribed a controlled substance at d/c from ED?: No Referrals: Baldo Mckeon MD [Primary Care Provider] - 1-2 days Time of Disposition: 11:48
[2021-11-10 12:01] VITALS: BP 137/75; PULSE 88; RESP 18
== END 2021-11-10 12:00 | disposition home or self-care (01) ==
LOC: EC 09:34
DX: R60.0 Localized edema (principal); E78.5 Hyperlipidemia, unspecified; I10 Essential (primary) hypertension; F17.200 Nicotine dependence, unspecified, uncomplicated; F12.90 Cannabis use, unspecified, uncomplicated; Z90.49 Acquired absence of other specified parts of digestive tract; Z96.652 Presence of left artificial knee joint
CPT/HCPCS: 36415; 80053; 80306; 81003; 82150; 83605; 83690; 85025; 93005; 99284

== ENCOUNTER → 2022-01-22 | Outpatient (CLI) | payer OTHER ==
--- NOTE | 2022-01-22 11:38 | US ---
EXAMINATION TYPE: US venous doppler duplex LE DATE OF EXAM: 01/22/2022 10:28 AM COMPARISON: US 07/23/2021 CLINICAL HISTORY: M79.89 SOFT TISSUE DISORDERS. No hx of DVT. Patient had left knee replacement in 2018. Patient not taking blood thinners. SIDE PERFORMED: Bilateral TECHNIQUE: The lower extremity deep venous system is examined utilizing real time linear array sonog jeremy with graded compression, doppler sonography and color-flow sonography. VESSELS IMAGED: Common Femoral Vein Deep Femoral Vein Greater Saphenous Vein * Femoral Vein Popliteal Vein Small Saphenous Vein * Proximal Calf Veins (* superficial vessels) Hypoechoic area with hyperechoic center seen within the right groin: 4.1 x 2.9 x 1.1 cm. Right Leg: No evidence of DVT. Left Leg: No evidence of DVT. IMPRESSION: 1. No diagnostic evidence of DVT. 2. Right inguinal lymphadenopathy. Correlate clinically.
--- NOTE | 2022-01-22 11:43 | US ---
EXAMINATION TYPE: US thyroid st tissue head/neck DATE OF EXAM: 01/22/2022 COMPARISON: NONE CLINICAL HISTORY: E04.9 NONTOXIC GOITER. Goiter GLAND SIZE: Right Lobe: 4.5 x 1.4 x 1.3 cm Overall Parenchyma: Slightly heterogeneous. Left Lobe: 4.3 x 1.9 x 1.3 cm Overall Parenchyma: Slightly heterogeneous Isthmus Thickness: 0.29 cm NODULES RIGHT: # of nodules measured on right: 0 LEFT: # of nodules measured on left: 0 ISTHMUS: # of nodules measured in the isthmus: 0 Bilateral neck scanned, no evidence of lymphadenopathy. *Slightly limited due to depth of thyroid within patient's neck. IMPRESSION: Diffuse heterogeneity suggestive of thyroiditis. No discrete solid or cystic nodule seen. 2017 ACR TI-RADS LEVEL: TR-RADS 1 - BENIGN: No FNA *Highest TI-RADS level nodule reported
--- NOTE | 2022-01-22 15:50 | US ---
EXAMINATION TYPE: US arterial LE single level DATE OF EXAM: 01/22/2022 10:58 AM CLINICAL HISTORY: I73.9 PERIPHERAL VASCULAR DISEASE. Peripheral vascular disease, intermittent claudi cation bilaterally. Current smoker, hypertension, hyperlipidemia per patient. Doppler Waveforms: Right: Multiphasic Left: Multiphasic Pulse Volume Recording: Normal amplitudes Pressure Gradients: No significant gradients Ankle-Brachial Indices: Right: 1.11 Left: 1.13 Toe Brachial Indices: Right: 0.84 Left: 0.97 IMPRESSION: Normal ankle-brachial indices
--- NOTE | 2022-01-23 10:43 | CA ---
Exercise Stress Test Report Name: Saul Dougherty Exam Date: 01/22/2022 09:15 Exam Location: [facility] Ht (in): 73 Wt (lb): 309 BSA: 2.59 Ordering Phys: Rubio Martinez MD Referring Phys: Keke Cedeno [facility] Technologist: Buddy Chapman Age: 46 Gender: M : 1975 Procedure CPT: Indications: R06.09 M79.89 I73.9 E04.9 ICD-10 Codes: Patient History: Chest Pain, Shortness of breath, [place] Medications: Lisinopril, Norvasc, Roland, Omeprazole Meds past 24 hrs: Pretest Chest Pain: STRESS TEST Sanjay Protocol Exercise Duration (min:sec): 01:[address] Depressions (mm): Angina Score: Pitts Score: Resting HR (bpm): 66 Peak HR (bpm): 124 Resting BP (mmHg): 119 / 70 Peak BP (mmHg): 139 / 89 MPHR: 173 Target HR: 147 % MPHR: 72 METS: 3.4 Total Dose: Peak Dose: Atropine: Double Product: 17706 BP Response: Stress Termination: Fatigue, Patient started to fall and was short of breath Stress Symptoms: Dyspnea, Knee pain and unstable on the treadmill Stress Summary: ECG ANALYSIS Resting ECG: Stress ECG: CONCLUSIONS Normal heart rate and blood pressure at baseline Normal twelve-lead EKG Patient exercised on a Sanjay protocol for only 1 minute 48 seconds She complained of knee pain a short of breath Normal EKG response with this minimal exercise Dr. Jair Ramos MD (Electronically Signed) Final Date: 23 January 2022 10:42
== END | disposition home or self-care (01) ==
LOC: RADNMMAIN 08:46
PROVIDERS: ATTEND Family Medicine
DX: E04.2 Nontoxic multinodular goiter (principal)
CPT/HCPCS: 76536; 93017; 93922; 93970

== ENCOUNTER → 2022-01-29 | Outpatient (CLI) | payer OTHER ==
[2022-01-29 13:57] VITALS: BP 135/85; PULSE 70; RESP 18; TEMP 98.5
--- NOTE | 2022-01-29 14:51 | P.PAINPG ---
PQRS Measure Charge Sheet Comment: HISTORY OF PRESENT ILLNESS: 46 yr old male as a referral from Dr. Mckeon presents today for severe and chronic LBP secondary to disc bulges and DDD for evaluation. Pt states his LBP is 10/10 in intensity, dull and achy in the lower lumbar spine, constant pressure. Also complains of BL knee pain, 10/10 in intensity, constant, dull/achy and provoked with standing. Pain is provoked with standing for periods of 30 min or more. Pain is alleviated with +cannabis, medications (Advil), heat, repositioning, sitting and rest. Past Medical History: Hyperlipidemia, HTN, [place] Palsy Past Surgical History: Appendectomy, L Knee Replacement (2019) Social History: Current daily tobacco user, Occasional ETOH use, +Cannabis use Family History: Mother- [place]. All: See list Meds: See list REVIEW OF ORGAN SYSTEMS: CONSTITUTIONAL: No fevers or chills. No recent weight loss. HEENT: No visual acuity loss, eye pain, difficulties with hearing. No nosebleeds. No difficulty swallowing. RESPIRATORY: Denies any troubles with breathing or dyspnea on exertion. CARDIOVASCULAR: Denies any chest pain, palpitations, or recent heart attacks. GASTROINTESTINAL: Denies fatty food intolerance. Has change in bowel habits and gas bloat. GENITOURINARY: Denies any blood in urine. Has increased urinary frequency. NEUROLOGICAL: + numbness and tingling along the distal extremities. No seizure disorders or headaches. MUSCULOSKELETAL: + back pain SKIN: No skin cancer. No rash. PSYCHIATRIC: Denies current depression or suicidal thoughts. ENDOCRINE: Denies current thyroid disorders. Denies any blood sugar glucose intolerance. HEME/LYMPHATIC: Denies any lumps and bumps around the neck. History of deep venous thrombosis. ALLERGY/IMMUNOLOGY: No immunoglobulin therapy. No immune deficiencies. BREAST: Denies current breast lumps, pain or nipple discharge. Physical Examinations : Constitutional : Cooperative , not in acute distress . HEENT: Neck supple. No Lymphadenopathy. Normal thyroid size . Eyes no ptosis , no icterus, no photophobia . Hearing intact. Normal oropharynx. No Thrush. Respiratory : Chest clear to auscultations bilaterally. No wheezing. No rhonchi. Cardiovascular : Regular rate and rhythm , S1 / S2. No S3 . No S4. Gastrointestinal : Abdomen soft. No tenderness. Bowel sounds x 4. No organomegaly . Genitourinary : Deferred. Neurologic : Cranial nerve II to XII intact. No focal neurological deficits. Psychiatric : alert & oriented x 3. Matching mood & appropriate affect. Judgment & insight intact. Lymphatic No Lymphadenopathy. Musculoskeletal : +L Knee 8" well healed vertical incisional scar Cervical Spine Motor strength in the deltoid and biceps: Normal right side. Normal Left side Motor strength biceps and the wrist extensors: Normal right side . Normal left side Motor strength in the triceps muscle: Normal right side. Normal left side Deep tendon reflexes: Normal at the biceps. Normal at Brachioradialis. Normal at triceps Cervical facet loading test: positive bilaterally Spurling test: positive bilaterally Neck distraction test: positive bilaterally Michael sign: positive bilaterally Lumbar spine Motor strength lower extremities ,thigh and legs 5/5 Right side , 5/5 Left side Deep tendon reflexes : Normal Knee Jerk. Normal Ankle Jerk Vertebral body tenderness over L5 Lumbar facet Loading Test: positive Right / positive Left Range of motion of the lumbar spine Flexion 30 degrees, extension 10 degrees Straight Leg Raise test: Left/ Right positive at degree Michelle test: positive right / positive left. Severe tenderness over the Sacroiliac joint on the Right / Left sides Gaenslen test: positive bilaterally Seated flexion test: positive bilaterally. Sacral spine : Severe tenderness over the Sacroiliac joint: right side / left side Range of motion: Flexion of the lumbar spine <60 degrees Range of motion: Extension of the lumbar spine <20 degrees Gaenslen's Test positive Mick's Test positive Michelle test: positive right side / lef t side Thigh Thrust Test Sacral Thrust Test Imaging: MRI without contrast of the lumbar spine reviewed Assessment/ Plan : Lumbar disc bulge Pt was disinterested in LESI L5-S1 at this time. Pt only wanted [place], and at a a higher dose than what Dr Mckeon prescribes ([place] 5/325mg). Discussed integrative pain management and treatment options, including reducing dose of narcotics and integrating non -narcotic pain management, but pt was also disinterested in this pain management plan. May return to our clinic on an as needed basis. Risks, benefits of procedure discussed and patient verbalized understanding. Denies aspirin or anti- coagulant use or medical history of diabetes. All questions answered. I have spent greater than 50 minutes on patient care today. Dr Ly was available by phone for the evaluation of this patient. The time was used to review the medical records including relevant urine studies and Prescription history (MAPs), review of the available imaging, evaluation and examination of the patient, coordination of care with the medical staff and if applicable referring physicians, as well as creation of the medical record - Pain Location Bilateral Knee Non-Pharmacological Interventions: Heat, Ice Pharmacological Interventions: PRN Medication PQRS Narrative: Smoking Status Current every day smoker Home Medications: Ambulatory Orders HYDROcodone/APAP 5-325MG [[place] 5-325] 1 tab PO Q6H PRN 04/13/20 lisinopriL 40 mg PO DAILY 04/13/20 methocarbamoL [Robaxin-750] 750 mg PO QID PRN 04/13/20 Pantoprazole Sodium [Protonix] 40 mg PO DAILY 02/28/21 Furosemide [Lasix] 40 mg PO DAILY 07/23/21 Cephalexin [Keflex] 500 mg PO Q6HR 10 Days #40 cap 11/09/21 Furosemide [Lasix] 20 mg PO DAILY #7 tab 11/09/21 hydrALAZINE HCL [Apresoline] 50 mg PO BID 11/10/21 Controlled Substance Measures - Controlled Substance Measures Is patient prescribed a controlled substance at discharge?: No
== END ==
LOC: PNWHC3 12:15
PROVIDERS: ATTEND Specialist
DX: M51.26 Other intervertebral disc displacement, lumbar region (principal); G89.29 Other chronic pain; E78.5 Hyperlipidemia, unspecified; I10 Essential (primary) hypertension; F17.200 Nicotine dependence, unspecified, uncomplicated; Z88.5 Allergy status to narcotic agent
CPT/HCPCS: 99211

== ENCOUNTER → 2022-05-14 | Outpatient (CLI) | payer OTHER ==
--- NOTE | 2022-05-14 11:21 | CT ---
EXAMINATION TYPE: CT right knee - [facility] Protocol DATE OF EXAM: 05/12/2022 COMPARISON: None HISTORY: 48-year-old male M25.562 right knee pain, LEIDY planning TECHNIQUE: Scanning of the left knee without IV contrast. Coronal and sagittal reconstructions perfor med. Imaging for surgical planning purposes. Imaging included both hips and ankles as well. CT DLP: 1254 mGycm Automated exposure control for dose reduction was used. FINDINGS: Osseous structures. Joints are symmetric. Views of the bilateral ankles are also included. Hypertroph ic change involving the unremarkable. IMPRESSION: 1. IMAGING FOR SURGICAL PLANNING PURPOSES.
== END | disposition home or self-care (01) ==
LOC: RADCTMAIN 09:36
PROVIDERS: ATTEND Orthopaedic Surgery
DX: M17.11 Unilateral primary osteoarthritis, right knee (principal)

== ENCOUNTER → 2022-07-02 | Outpatient (CLI) | payer OTHER ==
[2022-07-02 23:31] LABS: Appearance,Urine Clear (Clear); Bilirubin,Urine Negative (Negative); Blood,Urine Negative (Negative); Color,Urine Yellow (Yellow); Ketones,Urine Trace mg/dL (Negative); Nitrite,Urine Negative (Negative); Specific Gravity,Urine 1.027 (1.001-1.030)
== END | disposition home or self-care (01) ==
LOC: LABPAT 16:12
PROVIDERS: ATTEND Orthopaedic Surgery
DX: Z01.812 Encounter for preprocedural laboratory examination (principal); M17.11 Unilateral primary osteoarthritis, right knee
CPT/HCPCS: 81003; 83036

== ENCOUNTER → 2022-07-03 | Day surgery (SDC) | payer OTHER ==
[2022-06-29 13:11] VITALS: BMI 40.6
[~2022-07-03] MED LIST changes: -ACETAMINOPHEN TAB 500 MG TAB PO ONE; +ACETAMINOPHEN TAB 500 MG TAB PO PRN; -DEXAMETHASONE SOD PHOSPHATE 10 MG/ML 1 ML VIAL IV ONE; +DEXAMETHASONE SOD PHOSPHATE 10 MG/ML 1 ML VIAL IV PRN; +DOCUSATE 100 MG CAP PO PRN; +FAMOTIDINE 20 MG/2 ML VIAL IVP PRN; +KETOROLAC 15 MG/ML 1 ML VIAL IVP PRN; +LACTATED RINGERS 1,000 ML IV SCH; -MELOXICAM 7.5 MG TAB PO ONE; -ONDANSETRON 4 MG/2 ML VIAL IVP ONE; +ONDANSETRON 4 MG/2 ML VIAL IVP PRN; -ROPIVACAINE 246.25 MG, EPINEPHrine 0.5 MG, KETOROLAC 30 MG, cloNIDine HCL/PF 80 MCG, WA... MISCELLANE ONE; +ROPIVACAINE/EPI/CLONIDINE/KET 50 ML SYRINGE MISCELLANE PRN; -SCOPOLAMINE 1.5MG/72HR PATCH TRANSDERM ONE; -TRANEXAMIC ACID 1,000 MG in SODIUM CHLORIDE 0.9% 100 ML IVPB ONE; +TRANEXAMIC ACID IN NACL,ISO-OS 1,000 MG in SALINE 1 100ML.BAG IVPB PRN; -ceFAZolin 3 GM in SODIUM CHLORIDE 0.9% 100 ML IVPB ONE; +ceFAZolin 3 GM in SODIUM CHLORIDE 0.9% 100 ML IVPB PRN; +oxyCODONE ER 10 MG TAB.ER.12H PO PRN
== END ==
LOC: OR 13:54
PROVIDERS: ATTEND Orthopaedic Surgery
DX: M17.11 Unilateral primary osteoarthritis, right knee (principal); Z53.9 Procedure and treatment not carried out, unspecified reason

== ENCOUNTER → 2022-11-19 | Outpatient (CLI) | payer OTHER ==
[2022-11-19 09:38] LABS: Partial Thromboplastin Time 24.8 sec (22.0-30.0); Prothrombin Time 10.2 sec (9.0-12.0)
[2022-11-19 15:36] LABS: Appearance,Urine Clear (Clear); Bilirubin,Urine Negative (Negative); Blood,Urine Negative (Negative); Color,Urine Yellow (Yellow); Ketones,Urine Negative (Negative); Nitrite,Urine Negative (Negative); PH, Urine 5.5 (5.0-8.0); Specific Gravity,Urine 1.031 (1.001-1.030); Urobilinogen,Urine 0.2 (0.2,1.0)
[2022-11-19 16:12] LABS: Basophils # (A) 0.06 X 10*3/uL (0.00-0.10); Basophils % (A) 0.6 %; Eosinophils # (A) 0.13 X 10*3/uL (0.04-0.35); Eosinophils % (A) 1.2 %; HCT 43.7 % (39.6-50.0); Immature Grans, Automated 1.3 %; Lymphocytes # (A) 3.54 X 10*3/uL (0.90-5.00); Lymphocytes % (A) 32.9 %; MCHC 29.7 g/dL (32.0-37.0); MCV 83.9 fL (80.0-97.0); Mean Platelet Volume 11.1 fL (9.5-12.2); Monocytes # (A) 0.86 X 10*3/uL (0.20-1.00); NRBC Per 100 WBC 0 /100 WBCS (0.0-0.0); Neutrophils # (A) 6.02 X 10*3/uL (1.80-7.70); Platelet Count 410 X 10*3/uL (140-440); RBC 5.21 X 10*6/uL (4.40-5.60); RDW 17.4 % (11.5-14.5); WBC 10.75 X 10*3/uL (4.50-10.00)
[2022-11-19 16:21] LABS: African American GFR (CKD) 116.6 (60.0-200.0); Albumin 4.4 g/dL (3.8-4.9); Albumin/Globulin Ratio 1.52 (1.60-3.17); Anion Gap 12.9 mmol/L (10.00-18.00); BUN/Creat Ratio 12.67 Ratio (12.00-20.00); Blood Urea Nitrogen 11.4 mg/dL (9.0-27.0); Calcium 10.1 mg/dL (8.7-10.3); Carbon Dioxide 26.1 mmol/L (20.0-27.5); Globulin 2.9 g/dL (1.6-3.3); Non-African American GFR(CKD) 100.6 (60.0-200.0); Potassium 4.3 mmol/L (3.5-5.5); Total Bilirubin 0.3 mg/dL (0.30-1.20); Total Protein 7.3 g/dL (6.2-8.2)
== END | disposition home or self-care (01) ==
LOC: LABPAT 08:04
PROVIDERS: ATTEND Orthopaedic Surgery
DX: Z01.818 Encounter for other preprocedural examination (principal); M17.11 Unilateral primary osteoarthritis, right knee; R94.31 Abnormal electrocardiogram [ECG] [EKG]; R00.1 Bradycardia, unspecified
CPT/HCPCS: 36415; 80053; 81003; 85025; 85610; 85730; 93005

== ENCOUNTER → 2022-12-02 | Outpatient (CLI) | payer OTHER | END | disposition home or self-care (01) | LOC: LABPAT 08:53 | PROVIDERS: ATTEND Orthopaedic Surgery | DX: Z01.812 Encounter for preprocedural laboratory examination (principal) | CPT/HCPCS: 87070 ==

== ENCOUNTER 2022-12-07 05:35 | Observation (INO) | payer OTHER ==
[~2022-12-07 05:35] MED LIST changes: -DEXAMETHASONE SOD PHOSPHATE 10 MG/ML 1 ML VIAL IV PRN; +DEXAMETHASONE SOD PHOSPHATE 4 MG/ML 1 ML VIAL IV ONE; -DOCUSATE 100 MG CAP PO PRN; -FAMOTIDINE 20 MG/2 ML VIAL IVP PRN; +GABAPENTIN 300 MG CAP PO PRN; -KETOROLAC 15 MG/ML 1 ML VIAL IVP PRN; -LACTATED RINGERS 1,000 ML IV SCH; +MELOXICAM 7.5 MG TAB PO PRN; -MIDAZOLAM 2 MG/2 ML VIAL IV PRN; +ONDANSETRON 4 MG/2 ML VIAL IVP ONE; -ONDANSETRON 4 MG/2 ML VIAL IVP PRN; -ROPIVACAINE/EPI/CLONIDINE/KET 50 ML SYRINGE MISCELLANE PRN; -oxyCODONE ER 10 MG TAB.ER.12H PO PRN
[2022-12-07] MEDS ORDERED: LACTATED RINGERS 1,000 ML IV ONE ×2 (05:56→07:52)
[2022-12-07 06:14] LABS: Glucose,Whole Blood 120 mg/dL (70-110)
[2022-12-07] MEDS ORDERED: MIDAZOLAM 2 MG/2 ML VIAL IVP ONE (06:46)
[2022-12-07] MEDS ORDERED: fentaNYL (PF) 50 MCG/ML 2 ML AMP IVP ONE (06:46)
[2022-12-07] MEDS ORDERED: TRANEXAMIC ACID IN NACL,ISO-OS 1,000 MG/100 ML BAG ONE (06:58)
[2022-12-07] MEDS ORDERED: KETAMINE 10 MG/ML 20 ML VIAL ONE (06:58)
[2022-12-07] MEDS ORDERED: MIDAZOLAM 2 MG/2 ML VIAL ONE (06:58)
[2022-12-07] MEDS ORDERED: PROPOFOL 10 MG/ML 20 ML VIAL IV ONE (06:58)
[2022-12-07] MEDS ORDERED: GLYCOPYRROLATE 0.2 MG/ML 2 ML VIAL ONE (06:58)
[2022-12-07] MEDS ORDERED: fentaNYL (PF) 50 MCG/ML 2 ML AMP ONE (06:58)
[2022-12-07] MEDS ORDERED: ceFAZolin 1,000 MG in SODIUM CHLORIDE 0.9% 1,000 ML IRRIGATION ONE (07:05)
--- NOTE | 2022-12-07 08:16 | P.OP ---
Date of Procedure: 12/07/22 Preoperative Diagnosis: Severe osteoarthritis right knee Postoperative Diagnosis: Severe osteoarthritis right knee Procedure(s) Performed: Right total knee arthroplasty Implants: [employer]hew Journey II CR Oxinium cruciate retaining femoral component size 8, right [employer] Journey nonporous tibial baseplate size 7, right [employer] Journey II, XLPE Deep Dished articular insert, size 15 mm, Size 7-8, right [employer] Journey Alexandra II resurfacing patellar component, oval, 35 mm All components were cemented using Palacos R bone cement The articulation is Oxinium on polyethylene Anesthesia: spinal Surgeon: Walker Ly Jet Blade Polisher #1: Tereza Choi Estimated Blood Loss (ml): 50 Pathology: other (Bone and cartilage) Condition: stable Disposition: PACU Indications for Procedure: The patient's knee is end-stage, and conservative management has failed. The operation of knee replacement has been discussed at length in the office, as well as potential risks and complications. These are inclusive of, but not limited to: Infection, bleeding, scarring, discomfort, stiffness, blood vessel and nerve damage, need for further surgery, failure to relieve symptoms, persistence, recurrence, or worsening of problems, loosening, dislocation, wear, blood clot, pulmonary embolism, , gait dysfunction, stiffness, and other risks as discussed in the office. Patient elects to proceed and the consent form has been signed. Operative Findings: The operative findings are consistent with severe osteoarthritis the right knee Description of Procedure: Patient was seen in the preoperative area and the consent was reviewed and the operative site was marked with a skin marker. The patient verified the procedure and the operative site. An adductor canal pain catheter and an IPACK block were placed by anesthesia in the preoperative area. The patient was then brought to the operating room and positioned on the operating room table in the supine position. Preoperative antibiotics and a gram of transexamic acid were given intravenously. A spinal anesthetic was administered by the anesthesia department. Care was taken to make sure that all pressure points were adequately padded. A tourniquet was placed on the upper thigh and the lower extremity was prepped with ChloraPrep and draped in usual sterile fashion. A universal timeout was then performed which confirmed the patient's name, surgical site, ALLERGIES, and consent. The lower extremity was then exsanguinated and tourniquet was inflated to 250 mmHg. A standard anterior midline approach to the knee was performed. The skin and subcutaneous tissue were sharply dissected down to the patellar tendon. A medial parapatellar arthrotomy was then performed. The knee was then extended, the patellar was everted, and the knee was flexed. The infra-patellar fat pad was removed in order to enhance exposure. The anterior horns of both menisci were excised, and a release was performed to the posterior medial aspect of the knee. On gross visual inspection, there was complete loss of articular cartilage in the medial and patellofemoral joint spaces. There was also significant cartilage damage in the lateral compartment. There were multiple periarticular osteophytes globally about the knee which were then removed with a Ronguer. The femoral canal was then opened with the 9.5 mm intramedullary drill. The 8 mm intramedullary hazel was then inserted into the femoral canal with the distal femoral cutting guide set for 5 of valgus. The distal femoral cutting block was then pinned in place. The intramedullary hazel was then removed, and the distal femur was then cut. The cutting block was then removed and the cut was checked for symmetry. The resected bone was then measured to confirm the appropriate distal femoral resection. Next, the sizing guide was then placed and set for 3 external rotation based off of the epicondylar axis and Nellie's line. Pins were then placed and the drill holes, and the femur was sized with the sizing stylus. The pins were then removed, and the sizing guide was then removed. The spikes of the appropriate size femoral block was then placed into the predrilled holes, and malleted into place. Two 45 mm pins were then placed into the fixation holes on the cutting block. An naa wing was then used to ensure there would be no notching with the anterior cut. The anterior condyles were cut without notching. The anterior chord cut was then performed, followed by the posterior cut, posterior chamfer cut, and the anterior chamfer cut. The collateral ligaments were protected during the entire process. The cutting block was then removed. Any remaining bone and osteophytes were removed from the femur with a Ronguer. Attention was then directed to the tibia. The remaining ACL was removed with a Ronguer, and the tibia was then gently subluxed forward with a large bent knee retractor. Any remaining menisci were excised. The posterior lateral corner was cauterized in order to coagulate the lateral geniculate artery. The extra medullary tibial cutting guide was then placed, set for the appropriate rotation, slope, and depth of resection. The proximal tibia cutting guide was then pinned in place. Proximal tibia was then cut and sized. A curved osteotome was then used to remove any posterior osteophytes from the distal femur. The femoral trial was placed. A narrow saw blade was then used to remove the anterior intracondylar femoral bone. The CR notch trial was then placed. The tibial trial was placed with the appropriate-sized insert. The knee was able to fully extend and flex to 130 and was stable throughout all range of motion. The knee was then extended and the patella was everted. Patella was then measured, and then using an osteotomy guide, the patella was cut at the appropriate level. The patellar component was sized. The patellar drill guide was placed and the patella was drilled. The patella trial was then placed. The knee was then taken through range of motion with the patella trial and the patella tracked normally using the no thumbs technique. The patella trial was then removed. The knee was then flexed and lug holes were drilled through the femoral trial and the femoral trial was then removed. The tibial was then re- exposed, and the tibial broach guide was then pinned in place after it was set for the appropriate rotation to allow for the most coverage without overhang. The tibia was then reamed and broached. The femoral canal was plugged with autologous bone. The cut surfaces of bone were then irrigated with pulsatile lavage. The knee was also irrigated with Irrisept solution. The components were then opened, the cement was mixed. C ement was placed on the backside of the femoral, tibial, and patellar components. Cement was then applied to the tibial surface and pressurized into the surface using finger pressurization technique. The tibial component was then applied and excess cement was removed after it was impacted securely noted to be flush with the cut surface. In similar fashion, the cement was applied to the cut femoral surface, pressurized and using finger pressurization the component was impacted in place. Excess cement was removed. The polyethylene spacer was then implanted and locked into position. Patellar component was then applied in a similar technique and the patellar clamp was used to hold patella in place while the cement hardened. The knee was held in full extension while the cement hardened. Once the cement had fully hardened, the knee was reinspected. Any other cement extrusion was removed the final range of motion testing showed range of motion from 0-130 with excellent stability, both medial and laterally and appropriate alignment of the leg. Patella tracked normally. After the cemented hardened, the tourniquet was released and hemostasis was obtained. A second gram of transexamic acid was given intravenously. The knee was again irrigated. The knee was again taken through range of motion and found to be stable throughout all range of motion of 0-130, and the patella tracked normally. The fascia was then closed with 0 Vicryl followed by #2 strata fix suture. The subcutaneous tissue was closed with 3-0 Vicryl and 3-0 strata fix. Exofin glue was used for the skin and placed with the knee in flexion. After the glue had dried, and Optafoam silver impregnated dressing was applied. A lightly compressive dressing was applied using web roll and Samy wrap. Patient was then transferred to the stretcher and taken to recovery room in stable condition. Sponge and needle counts were correct. The hotel administrative assistant AURELIA Upton was required due the complexity surgery and the need for a skilled surgical services manager. She assisted in positioning, draping, retraction, and closure of the wound.
[2022-12-07] MEDS ORDERED: HYDROmorphone 0.5 MG/0.5 ML SYRINGE IVP PRN ×2 (08:45)
[2022-12-07] MEDS ORDERED: bisacodyL 10 MG SUPP RECTAL PRN (08:45)
[2022-12-07] MEDS ORDERED: NALOXONE 0.4 MG/ML 1 ML VIAL IV PRN (08:45)
[2022-12-07] MEDS ORDERED: ONDANSETRON 4 MG/2 ML VIAL IVP PRN (08:45)
[2022-12-07] MEDS ORDERED: MAGNESIUM HYDROXIDE 2,400 MG/10 ML CUP PO PRN (08:45)
[2022-12-07] MEDS ORDERED: NA PHOS,M-B/NA PHOS,DI-BA 133 ML ENEMA RECTAL PRN (08:45)
[2022-12-07] MEDS ORDERED: HYDROcodone/APAP 7.5-325MG 1 EACH TAB PO PRN (08:46)
[2022-12-07 09:08] LABS: Glucose,Whole Blood 129 mg/dL (70-110)
--- NOTE | 2022-12-07 09:24 | XR ---
EXAMINATION TYPE: XR knee limited RT DATE OF EXAM: 12/07/2022 COMPARISON: NONE TECHNIQUE: Two views submitted HISTORY: Post op FINDINGS: There is a prosthetic knee in near anatomic alignment. There is soft tissue edema and emphysema. IMPRESSION: 1. Postoperative change. Appears in near-anatomic alignment
--- NOTE | 2022-12-07 09:38 | P.ANPRN ---
Procedure Note - Anesthesia - Nerve Block Performed Right Adductor Canal Infusion Time Out Performed: Yes (0645) Date of Procedure: 12/07/22 Procedure Start Time: 06:46 Procedure Stop Time: 06:51 Location of Patient: PreOp Indication: Acute Post-Operative Pain, Requested by Surgeon Specifically requested for management of pain by DrGage: Walker Ly Sedation Type: Sedate with meaningful contact maintained Preparation: Sterile Prep Position: Supine Catheter: None Needle Types: Pajunk Needle Gauge: 21 Ultrasound used to visualize needle placement: Yes Ultrasound used to observe medication spread: Yes Injectate: 0.5% Ropivacaine (see comment for volume) (15cc + 5cc) Blood Aspirated: No Pain Paresthesia on Injection Noted: No Resistance on Injection: Normal Image Stored and Saved: Yes Events: Uneventful and Well Tolerated
--- NOTE | 2022-12-07 09:40 | P.ANPRN ---
Procedure Note - Anesthesia - Nerve Block Performed Right iPack Single Time Out Performed: Yes (0645) Date of Procedure: 12/07/22 Procedure Start Time: 06:52 Procedure Stop Time: 06:54 Location of Patient: PreOp Indication: Acute Post-Operative Pain, Requested by Surgeon Specifically requested for management of pain by DrGage: Walker Ly Sedation Type: Sedate with meaningful contact maintained Preparation: Sterile Prep Ultrasound used to visualize needle placement: Yes Ultrasound used to observe medication spread: Yes Injectate: 0.5% Ropivacaine (see comment for volume) (15cc +5 cc nacl pf) Blood Aspirated: No Pain Paresthesia on Injection Noted: No Resistance on Injection: Normal Image Stored and Saved: Yes Events: Uneventful and Well Tolerated
[2022-12-07] MEDS: LACTATED RINGERS 1,000 ML IV SCH (10:48)
[2022-12-07] MEDS: SODIUM CHLORIDE 0.9% 1,000 ML IV SCH ×2 (12:08→23:05)
[2022-12-07] MEDS: HYDROcodone/APAP 7.5-325MG 1 EACH TAB PO PRN ×3 (12:08→23:49)
[2022-12-07 12:11] LABS: Glucose,Whole Blood 144 mg/dL (70-110)
[2022-12-07] MEDS: HYDROmorphone 1 MG/ML 1 ML SYRINGE IVP PRN ×2 (13:13→20:30)
[2022-12-07] MEDS ORDERED: DEXTROSE 50% SYRINGE 50 ML IVP PRN ×2 (14:55)
--- NOTE | 2022-12-07 15:56 | P.CONS ---
History of Present Illness - Reason for Consult Consult date: 12/07/22 Medical management - Chief Complaint Right knee pain - History of Present Illness Patient is a 47-year-old male with a past medical history of diabetes mellitus, hypertension who presented to the hospital for elective right total knee arthroplasty. Patient seen post surgery. He is complaining of right knee pain. He is wondering when the bandages will come off. Review of symptoms: 10 ROS reviewed and are negative except as noted in HPI Physical exam General: [Alert and oriented, well nourished, no acute distress]. Eye: [PERRL, EOMI, normal conjunctiva]. HENT: [Normocephalic, clear tympanic membranes, normal hearing, moist oral mucosa, no scleral icterus, no sinus tenderness]. Neck: [Supple, non-tender, no carotid bruits, no JVD, no lymphadenopathy]. Lungs: [Clear to auscultation and percussion, non-labored respiration]. Heart: [Normal rate, regular rhythm, no murmur, gallop or edema]. Abdomen: [Soft, non-tender, non-distended, normal bowel sounds, no masses]. Musculoskeletal: [Restricted range of motion of the right knee, right knee bandages intact and dry]. Neurologic: [Awake, alert, and oriented X3, CN II-XII intact]. Psychiatric: [Cooperative, appropriate mood and affect]. Assessment Vital signs: Blood pressure is 173/100, heart rate is 84, patient satting 98% on room air. Diabetes mellitus Hypertension uncontrolled likely due to pain Status post right TKA Plan Will hold his home diabetic meds and start sliding scale insulin Resume amlodipine 5 mg daily Resume Protonix 40 mg daily Pain management as per primary team DVT prophylaxis as per primary team. Patient is on aspirin 325 mg twice a day Past Medical History Past Medical History: Hyperlipidemia, Hypertension Additional Past Medical History / Comment(s): [place] Palsy, back pain History of Any Multi-Drug Resistant Organisms: None Reported Past Surgical History: Appendectomy, Joint Replacement Additional Past Surgical History / Comment(s): L Knee replacement 2019 Past Anesthesia/Blood Transfusion Reactions: No Reported Reaction Past Psychological History: No Psychological Hx Reported Smoking Status: Current every day smoker Past Alcohol Use History: Occasional Additional Past Alcohol Use History / Comment(s): smokes 1 PPD, started smoking age 14 Past Drug Use History: Marijuana Additional Drug Use History / Comment(s): edibles or smoking daily - Past Family History Mother Family Medical History: Cancer Medications and Allergies Home Medications Medication Instructions Recorded Confirmed Type Pantoprazole Sodium [Protonix] 40 mg PO DAILY 02/28/21 12/01/22 History Cyclobenzaprine [Flexeril] 10 mg PO TID PRN 12/01/22 12/01/22 History Empagliflozin [Jardiance] 25 mg PO DAILY 12/01/22 12/01/22 History HYDROcodone/APAP 10-325MG [Printer 1 tab PO BID PRN 12/01/22 12/01/22 History 10-325] amLODIPine [Norvasc] 5 mg PO DAILY 12/01/22 12/01/22 History metFORMIN HCL ER [Glucophage XR] 1,000 mg PO DAILY 12/01/22 12/01/22 History Aspirin 325 mg PO BID #60 tab 12/07/22 Rx HYDROcodone/APAP 7.5-325MG [Printer 1 - 2 tab PO Q6H PRN #32 tab 12/07/22 Rx 7.5-325] Sennosides [Senokot] 2 tab PO DAILY PRN #60 tablet 12/07/22 Rx Allergies Allergy/AdvReac Type Severity Reaction Status Date / Time atorvastatin [From Lipitor] AdvReac muscle Verified 12/01/22 11:40 spasms Physical Exam Osteopathic Statement: *. No significant issues noted on an osteopathic str uctural exam other than those noted in the History and Physical/Consult. Vitals: Vital Signs Temp Pulse Pulse Pulse Resp BP BP 12/07/22 14:00 97.6 F 84 18 12/07/22 10:20 97.7 F 60 18 12/07/22 09:57 53 L 16 131/79 12/07/22 09:42 58 L 16 155/77 12/07/22 09:27 57 L 16 126/73 12/07/22 09:12 65 16 125/66 12/07/22 08:57 69 15 134/63 12/07/22 08:42 96.9 F L 82 15 116/59 12/07/22 07:02 67 18 143/73 12/07/22 05:54 97.3 F L 72 18 159/86 BP Pulse Ox 12/07/22 14:00 173/100 98 12/07/22 10:20 139/88 98 12/07/22 09:57 99 12/07/22 09:42 96 12/07/22 09:27 100 12/07/22 09:12 98 12/07/22 08:57 97 12/07/22 08:42 98 12/07/22 07:02 98 12/07/22 05:54 96 Intake and Output 12/07/22 12/07/22 12/07/22 06:59 14:59 22:59 Intake Total 100 1819 Output Total 50 Balance 100 1769 Intake: IV 100 1701 Oral 118 Output: Estimated Blood Loss 50 Other: Weight 135.8 kg 135.8 kg Results Labs: Abnormal Lab Results - Last 24 Hours (Table) 12/07/22 12/07/22 12/07/22 Range/Units 06:12 09:05 12:08 POC Glucose (mg/dL) 120 H 129 H 144 H (70-110) mg/dL
[2022-12-07 17:05] LABS: Glucose,Whole Blood 173 mg/dL (70-110)
[2022-12-07] MEDS: INSULIN ASPART (NovoLOG) 100 UNIT/ML VIAL SQ SCH ×2 (17:14→21:29)
[2022-12-07] MEDS: SENNOSIDES-DOCUSATE SODIUM 1 EACH TAB PO SCH (20:32)
[2022-12-07] MEDS: ASPIRIN 325 MG TAB PO SCH (20:32)
[2022-12-07 21:16] LABS: Glucose,Whole Blood 133 mg/dL (70-110)
[2022-12-08] MEDS: HYDROmorphone 1 MG/ML 1 ML SYRINGE IVP PRN ×3 (02:33→20:47)
[2022-12-08] MEDS ORDERED: cloNIDine HCL 0.2 MG TAB PO PRN (03:47)
[2022-12-08 06:25] LABS: Glucose,Whole Blood 237 mg/dL (70-110)
[2022-12-08] MEDS: LACTATED RINGERS 1,000 ML IV SCH (06:26)
[2022-12-08] MEDS: HYDROcodone/APAP 7.5-325MG 1 EACH TAB PO PRN ×2 (06:36→17:51)
[2022-12-08] MEDS: INSULIN ASPART (NovoLOG) 100 UNIT/ML VIAL SQ SCH ×4 (06:37→21:44)
[2022-12-08] MEDS: ASPIRIN 325 MG TAB PO SCH ×2 (08:00→20:47)
[2022-12-08] MEDS: PANTOPRAZOLE 40 MG TABLET PO SCH (08:00)
[2022-12-08] MEDS: amLODIPine 5 MG TAB PO SCH (08:00)
--- NOTE | 2022-12-08 08:55 | P.PN ---
Subjective Progress Note Date: 12/08/22 This is a 47-year-old male who is status post right total knee arthroplasty. This is postoperative day #1 and patient is seen and evaluated at bedside with Dr. Walker Ly. Patient states his pain is well controlled and he has been up and walking with physical therapy. Objective - Vital Signs Vital signs: Vital Signs Temp 98.6 F 12/08/22 06:59 Pulse 81 12/08/22 06:59 Resp 16 12/08/22 06:59 BP 151/80 12/08/22 06:59 Pulse Ox 97 12/08/22 06:59 FiO2 Intake & Output 12/07/22 12/08/22 12/08/22 18:59 06:59 18:59 Intake Total 1819 180 Output Total 750 1999 72 Balance 1069 -1999 -54 Weight 135.8 kg Intake: IV 1701 Oral 118 180 Output: Urine 700 1999 725 Estimated Blood Loss 50 Other: Voiding Method Urinal Urinal - Exam Vital signs are stable. Patient is in no acute distress and is alert and oriented 3. Calf is soft and nontender to palpation. Dressing is clean, dry, and intact. Patient has full foot and ankle motion without pain or difficulty. Sensation intact. Neurovascular status and circulatory status are intact. - Labs Labs: Abnormal Lab Results - Last 24 Hours (Table) 12/07/22 12/07/22 12/07/22 Range/Units 09:05 12:08 17:03 POC Glucose (mg/dL) 129 H 144 H 173 H (70-110) mg/dL 12/07/22 12/08/22 Range/Units 21:13 06:21 POC Glucose (mg/dL) 133 H 237 H (70-110) mg/dL Assessment and Plan Assessment: Status post right total knee arthroplasty. (1) Osteoarthritis of right knee Current Visit: Yes Status: Acute Code(s): M17.11 - UNILATERAL PRIMARY OSTEOARTHRITIS, RIGHT KNEE SNOMED Code(s): 084397969017299 (2) Status post total right knee replacement Current Visit: Yes Status: Acute Code(s): Z96.651 - PRESENCE OF RIGHT ARTIFICIAL KNEE JOINT SNOMED Code(s): 1034415787623 Plan: #1 Continue with routine postoperative care and pain control, leave dressing in place for 7 days. #2 Anticoagulation with aspirin. #3 Physical therapy and CPM today. #4 Appreciate input from medicine. #5 Anticipate discharge to the ECF or home with home care likely tomorrow.
[2022-12-08 09:37] LABS: HCT 34.2 % (39.6-50.0); HGB 10.8 g/dL (13.0-17.0); MCH 25.5 pg (27.0-32.0); MCHC 31.6 g/dL (32.0-37.0); MCV 80.9 fL (80.0-97.0); Mean Platelet Volume 10.4 fL (9.5-12.2); NRBC Per 100 WBC 0 /100 WBCS (0.0-0.0); Platelet Count 323 X 10*3/uL (140-440); RBC 4.23 X 10*6/uL (4.40-5.60); RDW 16.7 % (11.5-14.5); WBC 16.34 X 10*3/uL (4.50-10.00)
[2022-12-08 11:26] LABS: Glucose,Whole Blood 117 mg/dL (70-110)
[2022-12-08 13:33] LABS: Basophils # (A) 0.02 X 10*3/uL (0.00-0.10); Basophils % (A) 0.1 %; Eosinophils # (A) 0 X 10*3/uL (0.04-0.35); Eosinophils % (A) 0 %; Immature Grans, Automated 0.6 %; Lymphocytes # (A) 3.19 X 10*3/uL (0.90-5.00); Lymphocytes % (A) 19.5 %; Monocytes # (A) 1.57 X 10*3/uL (0.20-1.00); Monocytes % (A) 9.6 %; Neutrophils # (A) 11.47 X 10*3/uL (1.80-7.70); Neutrophils % (A) 70.2 %; RBC Morphology NORMAL
[2022-12-08] MEDS: SODIUM CHLORIDE 0.9% 1,000 ML IV SCH (14:54)
--- NOTE | 2022-12-08 15:49 | P.PN ---
Subjective Progress Note Date: 12/08/22 Patient is a 47-year-old male with a past medical history of diabetes mellitus, hypertension who presented to the hospital for elective right total knee arthroplasty. Patient was seen and examined. No acute events overnight. Patient reports right knee pain well tolerated with current pain medication. Working well with PT and OT. Urinating freely. No bowel movement but passing gas. General: non toxic, no distress, appears at stated age Derm: warm, dry Head: atraumatic, normocephalic, symmetric Eyes: EOMI, no lid lag, anicteric sclera Cardiovascular: Good distal perfusion in all 4 extremities Lungs: no accessory muscle use Ext: no gross muscle atrophy, no edema, no contractures Neuro: no focal neuro deficits Psych: Alert, oriented, appropriate affect Leukocytosis Acute blood loss anemia Diabetes mellitus Hypertension uncontrolled likely due to pain Status post right TKA Based on my assessment of this patient, this patient meets a moderate complexity level of care. Leukocytosis is likely reactive. Drop is hemoglobin is an expected result of surgery. Patient has a chronic diagnosis of diabetes mellitus and hypertension. Hypertension: Amlodipine 5 mg PO QD. Clonidine 0.2 mg PO TID PRN. Diabetes Mellitus: Insulin sliding scale. Hypoglycemic precautions. I have reviewed the following media sales consultant notes: Orthopedic surgery note 12/08, anticipate discharge tomorrow SNF vs home with [facility]. I have reviewed the results of the following tests: CBC shows WBC count of 16.34 and hemoglobin of 10.8. [id number] glucose 117- 237 over the past 24 hours. I have ordered the following tests: None. I have discussed the care of this patient with the following independent historian: None. I have independently interpreted the following test below: None. I have discussed the management of this patient with the following physician: None. Objective - Vital Signs Vital signs: Vital Signs Temp 98.9 F 12/08/22 13:48 Pulse 82 12/08/22 13:48 Resp 19 12/08/22 13:48 BP 167/90 12/08/22 13:48 Pulse Ox 99 12/08/22 13:48 FiO2 Intake & Output 12/07/22 12/08/22 12/08/22 18:59 06:59 18:59 Intake Total 1819 360 Output Total 750 2000 1575 Balance 1069 -2000 1214 Weight 135.8 kg Intake: IV 1701 Oral 118 360 Output: Urine 700 2000 1575 Estimated Blood Loss 50 Other: Voiding Method Urinal Urinal - Labs CBC & Chem 7: 12/08/22 04:47 Labs: Abnormal Lab Results - Last 24 Hours (Table) 12/07/22 12/07/22 12/08/22 Range/Units 17:03 21:13 04:47 WBC 16.34 H (4.50-10.00) X 10*3/uL RBC 4.23 L (4.40-5.60) X 10*6/uL Hgb 10.8 L (13.0-17.0) g/dL Hct 34.2 L (39.6-50.0) % MCH 25.5 L (27.0-32.0) pg MCHC 31.6 L (32.0-37.0) g/dL RDW 16.7 H (11.5-14.5) % Immature Gran # 0.09 H (0.00-0.04) X 10*3/uL Neutrophils # 11.47 H (1.80-7.70) X 10*3/uL Monocytes # 1.57 H (0.20-1.00) X 10*3/uL Eosinophils # 0 L (0.04-0.35) X 10*3/uL POC Glucose (mg/dL) 173 H 133 H (70-110) mg/dL 12/08/22 12/08/22 Range/Units 06:21 11:25 WBC (4.50-10.00) X 10*3/uL RBC (4.40-5.60) X 10*6/uL Hgb (13.0-17.0) g/dL Hct (39.6-50.0) % MCH (27.0-32.0) pg MCHC (32.0-37.0) g/dL RDW (11.5-14.5) % Immature Gran # (0.00-0.04) X 10*3/uL Neutrophils # (1.80-7.70) X 10*3/uL Monocytes # (0.20-1.00) X 10*3/uL Eosinophils # (0.04-0.35) X 10*3/uL POC Glucose (mg/dL) 237 H 117 H (70-110) mg/dL
[2022-12-08 16:41] LABS: Glucose,Whole Blood 126 mg/dL (70-110)
[2022-12-08] MEDS: SENNOSIDES-DOCUSATE SODIUM 1 EACH TAB PO SCH (20:47)
[2022-12-08 21:43] LABS: Glucose,Whole Blood 102 mg/dL (70-110)
[2022-12-09] MEDS: HYDROcodone/APAP 7.5-325MG 1 EACH TAB PO PRN ×4 (01:57→20:38)
[2022-12-09] MEDS: LACTATED RINGERS 1,000 ML IV SCH (04:17)
[2022-12-09] MEDS: SODIUM CHLORIDE 0.9% 1,000 ML IV SCH ×2 (04:17→17:08)
[2022-12-09 06:00] LABS: Glucose,Whole Blood 112 mg/dL (70-110)
[2022-12-09] MEDS: INSULIN ASPART (NovoLOG) 100 UNIT/ML VIAL SQ SCH ×4 (06:04→20:39)
--- NOTE | 2022-12-09 07:42 | P.DS ---
Providers Date of admission: 12/08/22 06:33 Expected date of discharge: 12/09/22 Attending physician: Walker Ly Consults: 12/07/22 08:45 Consult Physician Routine Consulting Provider: Popeye Garrett Consult Reason/Comments: medical management Do you want consulting provider notified?: Yes Primary care physician: Keke Cedeno [facility] - Discharge Diagnosis(es) (1) Osteoarthritis of right knee Current Visit: Yes Status: Acute (2) Status post total right knee replacement Current Visit: Yes Status: Acute Hospital Course: This is a 47-year-old male who was last seen with complaint of continued right knee pain. The patient has a known history of degenerative arthritis of the right knee and presents to discuss surgical options. After discussion and consideration the patient elects to proceed with total right knee arthroplasty. The patient is seen preoperatively by his primary care physician and cleared for surgery. The patient is admitted to [facility] for total right knee arthroplasty. The procedures performed without complication or sequelae. Patient is doing well postoperatively. Vital signs are stable at discharge. Labs are stable at discharge. the patient is ambulating well with walker with minimal assistance. The patient is discharged to inpatient rehab versus home on postop day #2 pending medical clearance. Please see orders and refer to the [facility] rec for accurate list of medications. Patient Condition at Discharge: Good Plan - Discharge Summary Discharge Rx Participant: Yes New Discharge Prescriptions: New HYDROcodone/APAP 7.5-325MG [[place] 7.5-325] 1 - 2 tab PO Q6H PRN #32 tab PRN Reason: Pain Aspirin 325 mg PO BID #60 tab Sennosides [Senokot] 2 tab PO DAILY PRN #60 tablet PRN Reason: Constipation No Action Pantoprazole Sodium [Protonix] 40 mg PO DAILY amLODIPine [Norvasc] 5 mg PO DAILY HYDROcodone/APAP 10-325MG [[place] 10-325] 1 tab PO BID PRN PRN Reason: Pain Empagliflozin [Jardiance] 25 mg PO DAILY metFORMIN HCL ER [Glucophage XR] 1,000 mg PO DAILY Cyclobenzaprine [Flexeril] 10 mg PO TID PRN PRN Reason: Muscle Spasm Discharge Medication List Pantoprazole Sodium [Protonix] 40 mg PO DAILY 02/28/21 [History] Cyclobenzaprine [Flexeril] 10 mg PO TID PRN 12/01/22 [History] Empagliflozin [Jardiance] 25 mg PO DAILY 12/01/22 [History] HYDROcodone/APAP 10-325MG [[place] 10-325] 1 tab PO BID PRN 12/01/22 [History] amLODIPine [Norvasc] 5 mg PO DAILY 12/01/22 [History] metFORMIN HCL ER [Glucophage XR] 1,000 mg PO DAILY 12/01/22 [History] Aspirin 325 mg PO BID #60 tab 12/07/22 [Rx] HYDROcodone/APAP 7.5-325MG [[place] 7.5-325] 1 - 2 tab PO Q6H PRN #32 tab 12/07/22 [Rx] Sennosides [Senokot] 2 tab PO DAILY PRN #60 tablet 12/07/22 [Rx] Follow up Appointment(s)/Referral(s): [facility],Equipment [NON-STAFF] - As Needed (Call [facility] once home to arrange delivery of the Continuous Passive Motion (CPM) machine. ) [facility], [NON-STAFF] - 1-2 Days ([facility] will call you to schedule your in home physical therapy visits. ) [facility]edeno[facility]Primary [facility] - 1 Week Walker Ly DO [Doctor of Osteopathic Medicine] - 12/21/22 1:30 pm Activity/Diet/Wound Care/Special Instructions: Weightbearing as tolerated with a walker. CPM 5-6h daily as tolerated. Leave dressing intact. Dressing may be removed by home care nurse or by patient in 7 days. Then change dressing twice daily until follow up. May shower with initial dressing intact and after removal. If dressing become saturated, please remove. Recommend use of compression stockings daily until follow up to help prevent swelling and blood clots. May remove at night before sleeping. Please take aspirin 325mg twice daily for 30 days to prevent blood clots. Please follow up with [facility] and call with any questions or concerns, .
[2022-12-09] MEDS: amLODIPine 5 MG TAB PO SCH (08:12)
[2022-12-09] MEDS: PANTOPRAZOLE 40 MG TABLET PO SCH (08:12)
[2022-12-09] MEDS: ASPIRIN 325 MG TAB PO SCH ×2 (08:12→20:38)
[2022-12-09 11:12] LABS: Glucose,Whole Blood 129 mg/dL (70-110)
--- NOTE | 2022-12-09 14:52 | P.PN ---
Progress Note - Text Progress Note Date: 12/09/22 Patient is a 47-year-old male with a past medical history of diabetes mellitus, hypertension who presented to the hospital for elective right total knee arthroplasty which he underwent successfully on 12/07. He is pending SNF. Drop is hemoglobin is an expected result of surgery. Leukocytosis is likely reactive with no signs of active infection. He is medically cleared for discharge. Medication reconciliation is complete. Anticipated discharge today. We will sign off. Please call [facility] with any additional questions or concerns. Leukocytosis Acute blood loss anemia Diabetes mellitus Hypertension uncontrolled likely due to pain Status post right TKA
[2022-12-09 16:24] LABS: Glucose,Whole Blood 126 mg/dL (70-110)
[2022-12-09 20:24] LABS: Glucose,Whole Blood 191 mg/dL (70-110)
[2022-12-09] MEDS: SENNOSIDES-DOCUSATE SODIUM 1 EACH TAB PO SCH (20:39)
[2022-12-10] MEDS: HYDROmorphone 1 MG/ML 1 ML SYRINGE IVP PRN (00:29)
[2022-12-10] MEDS: LACTATED RINGERS 1,000 ML IV SCH (06:08)
[2022-12-10 06:12] LABS: Glucose,Whole Blood 126 mg/dL (70-110)
[2022-12-10] MEDS: INSULIN ASPART (NovoLOG) 100 UNIT/ML VIAL SQ SCH ×2 (06:14→11:23)
[2022-12-10 07:23] VITALS: RESP 19
[2022-12-10] MEDS: HYDROcodone/APAP 7.5-325MG 1 EACH TAB PO PRN ×2 (07:37→14:20)
[2022-12-10] MEDS: amLODIPine 5 MG TAB PO SCH (07:37)
[2022-12-10] MEDS: PANTOPRAZOLE 40 MG TABLET PO SCH (07:37)
[2022-12-10] MEDS: ASPIRIN 325 MG TAB PO SCH (07:37)
[2022-12-10] MEDS: SODIUM CHLORIDE 0.9% 1,000 ML IV SCH (09:01)
[2022-12-10 10:35] LABS: Basophils # (A) 0.07 X 10*3/uL (0.00-0.10); Basophils % (A) 0.5 %; Eosinophils # (A) 0.07 X 10*3/uL (0.04-0.35); Eosinophils % (A) 0.5 %; HCT 33.9 % (39.6-50.0); HGB 10.5 g/dL (13.0-17.0); Immature Grans, Automated 0.9 %; Lymphocytes # (A) 3.61 X 10*3/uL (0.90-5.00); Lymphocytes % (A) 24.7 %; MCH 25.2 pg (27.0-32.0); MCV 81.5 fL (80.0-97.0); Mean Platelet Volume 10.4 fL (9.5-12.2); Monocytes # (A) 1.74 X 10*3/uL (0.20-1.00); Monocytes % (A) 11.9 %; NRBC Per 100 WBC 0 /100 WBCS (0.0-0.0); Neutrophils # (A) 8.97 X 10*3/uL (1.80-7.70); Neutrophils % (A) 61.5 %; Platelet Count 294 X 10*3/uL (140-440); RBC 4.16 X 10*6/uL (4.40-5.60); RDW 16.5 % (11.5-14.5); WBC 14.59 X 10*3/uL (4.50-10.00)
[2022-12-10 11:20] LABS: Glucose,Whole Blood 129 mg/dL (70-110)
--- NOTE | 2022-12-10 11:30 | P.DS ---
Providers Date of admission: 12/08/22 06:33 Expected date of discharge: 12/10/22 Attending physician: Walker Ly Consults: 12/07/22 08:45 Consult Physician Routine Consulting Provider: Popeye Garrett Consult Reason/Comments: medical management Do you want consulting provider notified?: Yes Primary care physician: Keke Cedeno [facility] - Discharge Diagnosis(es) (1) Osteoarthritis of right knee Current Visit: Yes Status: Acute (2) Status post total right knee replacement Current Visit: Yes Status: Acute Hospital Course: This is a 47-year-old male with known history of degenerative arthritis of the right knee. The patient presented for evaluation as an outpatient. After discussion and consideration patient elects to proceed with total knee arthroplasty. The patient is seen preoperatively by Dr. Ly and medically cleared for surgery by their primary care physician. Patient is admitted to [facility] on 12/07/2022 for total knee arthroplasty. The procedure is performed without complication or sequelae. The patient is doing well postoperatively. Labs and vital signs are stable on day of discharge. On day of discharge patient's knee incision is healing well. There is minimal erythema. There is no drainage noted at this time. There is minimal soft tissue swelling to the knee. Patient has full foot and ankle motion without difficulty or pain. Calf is soft and nontender to palpation. Neurovascular status to the right lower extremity is intact. Patient is discharged home in good condition. Please see med rec for accurate list of home medications. Patient Condition at Discharge: Good Plan - Discharge Summary Discharge Rx Participant: Yes New Discharge Prescriptions: New HYDROcodone/APAP 7.5-325MG [[place] 7.5-325] 1 - 2 tab PO Q6H PRN #32 tab PRN Reason: Pain Aspirin 325 mg PO BID #60 tab Sennosides [Senokot] 2 tab PO DAILY PRN #60 tablet PRN Reason: Constipation Continue Pantoprazole Sodium [Protonix] 40 mg PO DAILY amLODIPine [Norvasc] 5 mg PO DAILY Empagliflozin [Jardiance] 25 mg PO DAILY metFORMIN HCL ER [Glucophage XR] 1,000 mg PO DAILY Cyclobenzaprine [Flexeril] 10 mg PO TID PRN PRN Reason: Muscle Spasm Discontinued HYDROcodone/APAP 10-325MG [[place] 10-325] 1 tab PO BID PRN PRN Reason: Pain Discharge Medication List Pantoprazole Sodium [Protonix] 40 mg PO DAILY 02/28/21 [History] Cyclobenzaprine [Flexeril] 10 mg PO TID PRN 12/01/22 [History] Empagliflozin [Jardiance] 25 mg PO DAILY 12/01/22 [History] amLODIPine [Norvasc] 5 mg PO DAILY 12/01/22 [History] metFORMIN HCL ER [Glucophage XR] 1,000 mg PO DAILY 12/01/22 [History] Aspirin 325 mg PO BID #60 tab 12/07/22 [Rx] HYDROcodone/APAP 7.5-325MG [[place] 7.5-325] 1 - 2 tab PO Q6H PRN #32 tab 12/07/22 [Rx] Sennosides [Senokot] 2 tab PO DAILY PRN #60 tablet 12/07/22 [Rx] Follow up Appointment(s)/Referral(s): [facility],Equipment [NON-STAFF] - As Needed (Call [facility] once home to arrange delivery of the Continuous Passive Motion (CPM) machine. ) [facility], [NON-STAFF] - 1-2 Days ([facility] will call you to schedule your in home physical therapy visits. ) [facility] - [facility] Week (Please call for appointment.) Walker Ly DO [Doctor of Osteopathic Medicine] - 12/21/22 1:30 pm Patient Instructions/Handouts: *Surgery [facility] - On-Q Pain Pump Discharge Instructions, Knee Replacement (DC) Activity/Diet/Wound Care/Special Instructions: Weightbearing as tolerated with a walker. CPM 5-6h daily as tolerated. Leave dressing intact. Dressing may be removed by home care nurse or by patient in 7 days. Then change dressing twice daily until follow up. May shower with initial dressing intact and after removal. If dressing become saturated, please remove. Recommend use of compression stockings daily until follow up to help prevent swelling and blood clots. May remove at night before sleeping. Please take aspirin 325mg twice daily for 30 days to prevent blood clots. Please follow up with [facility] and call with any questions or concerns, . Discharge Disposition: HOME WITH HOME HEALTH SERVICES
[2022-12-10 13:53] VITALS: TEMP 97.5
[2022-12-10] MEDS ORDERED: amLODIPine 5 MG TAB PO STA (13:57)
[2022-12-10] MEDS ORDERED: LISINOPRIL-HCTZ 10-12.5 MG 1 EACH TAB PO STA (13:57)
[2022-12-10 14:52] VITALS: BP 165/97; PULSE 85
--- NOTE | 2022-12-10 17:24 | P.PN ---
Subjective Progress Note Date: 12/10/22 Patient is a 47-year-old male with a past medical history of diabetes mellitus, hypertension who presented to the hospital for elective right total knee arthroplasty. Patient was seen and examined. Apparently, patient had an episode of nausea and vomiting when attempting to stand up. When he was seen, he reported considerable improvement in his symptoms. His BP was noted to be elevated at 184/112. General: non toxic, no distress, appears at stated age Derm: warm, dry Head: atraumatic, normocephalic, symmetric Eyes: EOMI, no lid lag, anicteric sclera Cardiovascular: Good distal perfusion in all 4 extremities Lungs: no accessory muscle use Ext: no gross muscle atrophy, no edema, no contractures Neuro: no focal neuro deficits Psych: Alert, oriented, appropriate affect Leukocytosis Acute blood loss anemia Diabetes mellitus Hypertension uncontrolled likely due to pain Status post right TKA Based on my assessment of this patient, this patient meets a moderate complexity level of care. Leukocytosis is likely reactive. Drop is hemoglobin is an expected result of surgery. Patient has a chronic diagnosis of diabetes mellitus and hypertension. Hypertension: Amlodipine increased to 10 mg by mouth daily. Add lisinopril 40 mg daily along with hydrochlorothiazide 25 mg daily. Diabetes Mellitus: Insulin sliding scale. Hypoglycemic precautions. His blood pressure improved to 165/97 after receiving lisinopril 10 mg, hydrochlorothiazide 12.5 mg and amlodipine 5 mg by mouth. Patient did not want to wait for repeat blood pressure check. Prescriptions will be sent to his pharmacy. Patient is advised follow-up with his PCP for further monitoring and titration of his antihypertensive medication. I have reviewed the following oim consultant notes: None. I have reviewed the results of the following tests: None. I have ordered the following tests: None. I have discussed the care of this patient with the following independent historian: None. I have independently interpreted the following test below: None. I have discussed the management of this patient with the following physician: None. Objective - Vital Signs Vital signs: Vital Signs Temp 97.5 F L 12/10/22 13:44 Pulse 85 12/10/22 14:50 Resp 19 12/10/22 13:44 BP 165/97 12/10/22 14:50 Pulse Ox 99 12/10/22 13:44 FiO2 Intake & Output 12/09/22 12/10/22 12/10/22 18:59 06:59 18:59 Intake Total 180 Output Total 400 400 Balance -400 -400 180 Intake: Oral 180 Output: Urine 400 400 Other: Voiding Method Urinal - Labs CBC & Chem 7: 12/10/22 04:20 Labs: Abnormal Lab Results - Last 24 Hours (Table) 12/09/22 12/10/22 12/10/22 Range/Units 20:23 04:20 06:11 WBC 14.59 H (4.50-10.00) X 10*3/uL RBC 4.16 L (4.40-5.60) X 10*6/uL Hgb 10.5 L (13.0-17.0) g/dL Hct 33.9 L (39.6-50.0) % MCH 25.2 L (27.0-32.0) pg MCHC 31.0 L (32.0-37.0) g/dL RDW 16.5 H (11.5-14.5) % Immature Gran # 0.13 H (0.00-0.04) X 10*3/uL Neutrophils # 8.97 H (1.80-7.70) X 10*3/uL Monocytes # 1.74 H (0.20-1.00) X 10*3/uL POC Glucose (mg/dL) 191 H 126 H (70-110) mg/dL 12/10/22 Range/Units 11:19 WBC (4.50-10.00) X 10*3/uL RBC (4.40-5.60) X 10*6/uL Hgb (13.0-17.0) g/dL Hct (39.6-50.0) % MCH (27.0-32.0) pg MCHC (32.0-37.0) g/dL RDW (11.5-14.5) % Immature Gran # (0.00-0.04) X 10*3/uL Neutrophils # (1.80-7.70) X 10*3/uL Monocytes # (0.20-1.00) X 10*3/uL POC Glucose (mg/dL) 129 H (70-110) mg/dL
== END 2022-12-10 15:31 | disposition home health service (06) ==
LOC: OR 05:35 → 4SSUR 08:40 → OR 12-08 06:33
PROVIDERS: ADMIT Orthopaedic Surgery; ATTEND Orthopaedic Surgery
DX: M17.11 Unilateral primary osteoarthritis, right knee (principal); M25.761 Osteophyte, right knee; D72.829 Elevated white blood cell count, unspecified; G89.18 Other acute postprocedural pain; D62 Acute posthemorrhagic anemia; E11.9 Type 2 diabetes mellitus without complications; I10 Essential (primary) hypertension; G51.0 Bell's palsy; F17.200 Nicotine dependence, unspecified, uncomplicated; Z96.652 Presence of left artificial knee joint; Z80.9 Family history of malignant neoplasm, unspecified; Z79.899 Other long term (current) drug therapy; Z79.84 Long term (current) use of oral hypoglycemic drugs; Z79.82 Long term (current) use of aspirin
CPT/HCPCS: 96376 ×3; 96374; 97116; 97161; 97535; 97166; 64999; 64448; 85025 ×2; 88300; 73560; 27447; G0378 ×3; C1713; C1776; C1751; J2250; J1100; J0690 ×2; J2405; J3010; J1170 ×4; J2704

== ENCOUNTER 2023-12-31 19:24 | Emergency (ER) | payer OTHER ==
--- NOTE | 2023-12-31 19:57 | ED ---
General Adult HPI - General Source: patient, RN notes reviewed Mode of arrival: EMS Limitations: no limitations <Ofelia Horton - Last Filed: 12/31/23 19:57> <Servando Childress - Last Filed: 12/31/23 23:22> - General Chief complaint: Arrhythmia/Palpitations Stated complaint: elevated BP Time Seen by Provider: 12/31/23 19:57 - History of Present Illness Initial comments: 48-year-old male presenting with chief complaint of dizziness. Patient states that today he was feeling "weird". He was experiencing dizziness and felt like "my heart was working harder and beating fast". He was seen in urgent care who sent him here via EMS. (Ofelia Horton) - Related Data Home Medications Medication Instructions Recorded Confirmed Pantoprazole Sodium [Protonix] 40 mg PO DAILY 02/28/21 12/01/22 Cyclobenzaprine [Flexeril] 10 mg PO TID PRN 12/01/22 12/01/22 Empagliflozin [Jardiance] 25 mg PO DAILY 12/01/22 12/01/22 metFORMIN HCL ER [Glucophage XR] 1,000 mg PO DAILY 12/01/22 12/01/22 Previous Rx's Medication Instructions Recorded Aspirin 325 mg PO BID #60 tab 12/07/22 HYDROcodone/APAP 7.5-325MG [[place] 1 - 2 tab PO Q6H PRN #32 tab 12/07/22 7.5-325] Sennosides [Senokot] 2 tab PO DAILY PRN #60 tablet 12/07/22 Lisinopril-Hctz 20-12.5 mg 2 tab PO DAILY #60 tab 12/10/22 [Zestoretic 20-12.5] amLODIPine 10 mg PO DAILY #30 tab 12/10/22 Allergies Allergy/AdvReac Type Severity Reaction Status Date / Time atorvastatin [From Lipitor] AdvReac muscle Verified 12/31/23 19:50 spasms Review of Systems ROS Other: All systems not noted in ROS Statement are negative. <Ofelia Horton - Last Filed: 12/31/23 19:57> ROS Other: All systems not noted in ROS Statement are negative. <Servando Childress - Last Filed: 12/31/23 23:22> ROS Statement: Those systems with pertinent positive or pertinent negative responses have been documented in the HPI. Past Medical History Past Medical History: Hyperlipidemia, Hypertension Additional Past Medical History / Comment(s): [place] Palsy, back pain History of Any Multi-Drug Resistant Organisms: None Reported Past Surgical History: Appendectomy, Joint Replacement Additional Past Surgical History / Comment(s): L Knee replacement 2019 Past Anesthesia/Blood Transfusion Reactions: No Reported Reaction Past Psychological History: No Psychological Hx Reported Smoking Status: Current every day smoker Past Alcohol Use History: Occasional Past Drug Use History: Marijuana - Past Family History Mother Family Medical History: Cancer <Ofelia Horton - Last Filed: 12/31/23 19:57> General Exam Limitations: no limitations <Ofelia Horton - Last Filed: 12/31/23 19:57> Limitations: no limitations General appearance: alert, in no apparent distress Head exam: Present: atraumatic, normocephalic Eye exam: Present: normal appearance. Absent: scleral icterus, conjunctival injection ENT exam: Present: mucous membranes dry Neck exam: Present: normal inspection Respiratory exam: Present: normal lung sounds bilaterally. Absent: respiratory distress, wheezes, rales, rhonchi, stridor, accessory muscle use Cardiovascular Exam: Present: regular rate, normal rhythm, normal heart sounds. Absent: systolic murmur, diastolic murmur, rubs, gallop GI/Abdominal exam: Present: soft. Absent: distended, tenderness, guarding, rebound, rigid, mass Extremities exam: Present: normal inspection, normal capillary refill. Absent: pedal edema, calf tenderness Back exam: Present: normal inspection. Absent: CVA tenderness (R), CVA tenderness (L) Neurological exam: Present: alert Skin exam: Present: warm, dry, intact, normal color. Absent: rash <Servando Childress - Last Filed: 12/31/23 23:22> - General Exam Comments Initial Comments: Visual Physical Exam Vital signs reviewed General: Well-appearing, nontoxic, no acute distress. Head: Normocephalic, atraumatic Eyes: PERRLA, EOMI ENT: Airway patent Chest: Nonlabored breathing Skin: No visual rash, normal skin tone Neuro: Alert and oriented 3 Musculoskeletal: No gross abnormalities (Ofelia Horton) Course Vital Signs 12/31/23 12/31/23 12/31/23 19:43 22:00 22:01 Temperature 98.4 F Pulse Rate 85 85 Pulse Rate [ 66 [employer] Analyst ] Respiratory 18 18 Rate Blood Pressure 106/71 143/71 O2 Sat by Pulse 97 100 Oximetry 12/31/23 23:00 Temperature Pulse Rate 65 Pulse Rate [ [employer] Analyst ] Respiratory 12 Rate Blood Pressure 143/71 O2 Sat by Pulse 95 Oximetry EKG Findings - EKG Results: EKG: interpreted by ERMD, sinus rhythm (Rate 81 bpm), normal axis, normal QRS, normal ST/T, no acute changes <Servando Childress - Last Filed: 12/31/23 23:22> Medical Decision Making <Ofelia Horton - Last Filed: 12/31/23 19:57> - Lab Data Result diagrams: 12/31/23 19:55 12/31/23 19:55 <Servando Childress - Last Filed: 12/31/23 23:22> - Medical Decision Making I performed the quick note portion of this visit, electronically signed Ofelia Horton PA-C (Ofelia Horton) - Lab Data Lab Results 12/31/23 12/31/23 12/31/23 Range/Units 19:55 19:55 19:55 WBC 14.8 H (3.8-10.6) k/uL RBC 5.90 (4.30-5.90) m/uL Hgb 15.3 (13.0-17.5) gm/dL Hct 49.4 (39.0-53.0) % MCV 83.7 (80.0-100.0) fL MCH 25.9 (25.0-35.0) pg MCHC 30.9 L (31.0-37.0) g/dL RDW 15.4 (11.5-15.5) % Plt Count 432 (150-450) k/uL MPV 7.2 Neutrophils % 67 % Lymphocytes % 24 % Monocytes % 6 % Eosinophils % 1 % Basophils % 1 % Neutrophils # 10.0 H (1.3-7.7) k/uL Lymphocytes # 3.5 (1.0-4.8) k/uL Monocytes # 0.9 (0-1.0) k/uL Eosinophils # 0.2 (0-0.7) k/uL Basophils # 0.1 (0-0.2) k/uL PT 10.9 (10.0-12.5) sec INR 1.0 (<1.2) APTT 26.4 (22.0-30.0) sec Sodium 135 L (137-145) mmol/L Potassium 4.1 (3.5-5.1) mmol/L Chloride 100 (98-107) mmol/L Carbon Dioxide 25 (22-30) mmol/L Anion Gap 10 mmol/L BUN 24 H (9-20) mg/dL Creatinine 1.62 H (0.66-1.25) mg/dL Est GFR (CKD-EPI)AfAm 57 (>60 ml/min/1.73 sqM) Est GFR (CKD-EPI)NonAf 49 (>60 ml/min/1.73 sqM) Glucose 103 H (74-99) mg/dL Calcium 9.8 (8.4-10.2) mg/dL Magnesium 1.9 (1.6-2.3) mg/dL Total Bilirubin 0.6 (0.2-1.3) mg/dL AST 37 (17-59) U/L ALT 54 H (4-49) U/L Alkaline Phosphatase 77 (38-126) U/L Troponin I (0.000-0.034) ng/mL Total Protein 8.3 H (6.3-8.2) g/dL Albumin 4.9 (3.5-5.0) g/dL 12/31/23 Range/Units 19:55 WBC (3.8-10.6) k/uL RBC (4.30-5.90) m/uL Hgb (13.0-17.5) gm/dL Hct (39.0-53.0) % MCV (80.0-100.0) fL MCH (25.0-35.0) pg MCHC (31.0-37.0) g/dL RDW (11.5-15.5) % Plt Count (150-450) k/uL MPV Neutrophils % % Lymphocytes % % Monocytes % % Eosinophils % % Basophils % % Neutrophils # (1.3-7.7) k/uL Lymphocytes # (1.0-4.8) k/uL Monocytes # (0-1.0) k/uL Eosinophils # (0-0.7) k/uL Basophils # (0-0.2) k/uL PT (10.0-12.5) sec INR (<1.2) APTT (22.0-30.0) sec Sodium (137-145) mmol/L Potassium (3.5-5.1) mmol/L Chloride (98-107) mmol/L Carbon Dioxide (22-30) mmol/L Anion Gap mmol/L BUN (9-20) mg/dL Creatinine (0.66-1.25) mg/dL Est GFR (CKD-EPI)AfAm (>60 ml/min/1.73 sqM) Est GFR (CKD-EPI)NonAf (>60 ml/min/1.73 sqM) Glucose (74-99) mg/dL Calcium (8.4-10.2) mg/dL Magnesium (1.6-2.3) mg/dL Total Bilirubin (0.2-1.3) mg/dL AST (17-59) U/L ALT (4-49) U/L Alkaline Phosphatase (38-126) U/L Troponin I <0.012 (0.000-0.034) ng/mL Total Protein (6.3-8.2) g/dL Albumin (3.5-5.0) g/dL Disposition <Ofelia Horton - Last Filed: 12/31/23 19:57> Is patient prescribed a controlled substance at d/c from ED?: No <Servando Childress - Last Filed: 12/31/23 23:22> Clinical Impression: Dehydration Disposition: HOME SELF-CARE Condition: Good Instructions (If sedation given, give patient instructions): Heart Palpitations (ED), Dehydration (ED) Referrals: Keke Cedeno [facility] [REFERRING] - 1-2 days
[2023-12-31 20:15] LABS: Basophils # (A) 0.1 k/uL (0-0.2); Basophils % (A) 1 %; Eosinophils # (A) 0.2 k/uL (0-0.7); Eosinophils % (A) 1 %; HCT 49.4 % (39.0-53.0); HGB 15.3 gm/dL (13.0-17.5); Lymphocytes # (A) 3.5 k/uL (1.0-4.8); Lymphocytes % (A) 24 %; MCH 25.9 pg (25.0-35.0); MCHC 30.9 g/dL (31.0-37.0); MCV 83.7 fL (80.0-100.0); Mean Platelet Volume 7.2; Monocytes # (A) 0.9 k/uL (0-1.0); Monocytes % (A) 6 %; Neutrophils % (A) 67 %; Platelet Count 432 k/uL (150-450); RDW 15.4 % (11.5-15.5); WBC 14.8 k/uL (3.8-10.6)
[2023-12-31 20:26] LABS: Partial Thromboplastin Time 26.4 sec (22.0-30.0); Prothrombin Time 10.9 sec (10.0-12.5)
[2023-12-31 20:29] LABS: ALT 54 U/L (4-49); AST 37 U/L (17-59); African American GFR (CKD) 57 (>60 ml/min/1.73 sqM); Albumin 4.9 g/dL (3.5-5.0); Alkaline Phosphatase 77 U/L (38-126); Anion Gap 10 mmol/L; Blood Urea Nitrogen 24 mg/dL (9-20); Calcium 9.8 mg/dL (8.4-10.2); Carbon Dioxide 25 mmol/L (22-30); Chloride 100 mmol/L (98-107); Glucose 103 mg/dL (74-99); Magnesium 1.9 mg/dL (1.6-2.3); Non-African American GFR(CKD) 49 (>60 ml/min/1.73 sqM); Potassium 4.1 mmol/L (3.5-5.1); Sodium 135 mmol/L (137-145); Total Bilirubin 0.6 mg/dL (0.2-1.3); Total Protein 8.3 g/dL (6.3-8.2)
--- NOTE | 2023-12-31 21:45 | XR ---
EXAMINATION TYPE: XR chest 2V DATE OF EXAM: 12/31/2023 8:12 PM CLINICAL INDICATION:Male, 48 years old with history of dysrhythmia; [facility] COMPARISON: Chest radiographs from 11/09/2021 TECHNIQUE: XR chest 2V Frontal and lateral views of the chest. FINDINGS: Lungs/Pleura: There is no evidence of pleural effusion, focal consolidation, or pneumothorax. Pulmonary vascularity: Unremarkable. Heart/mediastinum: Cardiomediastinal silhouette is unremarkable. Musculoskeletal: No acute osseous pathology. IMPRESSION: No acute cardiopulmonary disease/process.
[2023-12-31] MEDS: SODIUM CHLORIDE 0.9% 1,000 ML IV ONE (22:23)
[2024-01-01 00:21] VITALS: BP 122/77; PULSE 79; RESP 18; TEMP 98.7
== END 2023-12-31 23:31 | disposition home or self-care (01) ==
LOC: EC 19:24
DX: E86.0 Dehydration (principal); F17.200 Nicotine dependence, unspecified, uncomplicated; Z88.8 Allergy status to other drugs, medicaments and biological substances
CPT/HCPCS: 36415; 71046; 80053; 83735; 84484; 85025; 85610; 85730; 93005; 96360; 99285

== ENCOUNTER → 2024-04-24 | Outpatient (CLI) | payer OTHER ==
--- NOTE | 2024-04-24 13:04 | US ---
EXAMINATION TYPE: US venous doppler duplex LE LT DATE OF EXAM: 04/24/2024 12:42 PM COMPARISON: NONE CLINICAL INDICATION: Male, 49 years old with history of R60.0 LOCALIZED EDEMA; left leg cellulitis SIDE PERFORMED: left TECHNIQUE: The lower extremity deep venous system is examined utilizing real time linear array sonog jeremy with graded compression, doppler sonography and color-flow sonography. VESSELS IMAGED: Common Femoral Vein Deep Femoral Vein Greater Saphenous Vein * Femoral Vein Popliteal Vein Small Saphenous Vein * Proximal Calf Veins (* superficial vessels) Left Leg: No evidence of DVT IMPRESSION: 1. Left lower extremity ultrasound negative for deep venous thrombosis [facility] Cecil Najera, , 04/24/2024 1:01 PM
== END | disposition home or self-care (01) ==
LOC: RADUSWWP 12:26
PROVIDERS: ATTEND Family Medicine
DX: R60.0 Localized edema